=== PATIENT | male | born 1955 | race Two or more races ===

== ENCOUNTER → 2020-01-31 09:47 | Outpatient (BNVA) | payer BC, SELFPAY | PROVIDERS: PCP Internal Medicine Endocrinology, Diabetes & Metabolism; Referring Provider Internal Medicine Endocrinology, Diabetes & Metabolism; Visit Provider Urology | DX: Z76.89 Persons encountering health services in other specified circumstances (principal) ==

== ENCOUNTER → 2021-02-04 08:45 | Outpatient (BNVA) | payer MEDICARE, SELFPAY | PROVIDERS: PCP Internal Medicine Endocrinology, Diabetes & Metabolism; Visit Provider Urology | DX: N20.0 Calculus of kidney (principal); N28.1 Cyst of kidney, acquired; R82.994 Hypercalciuria | CPT/HCPCS: Q3014 ==

== ENCOUNTER → 2022-02-05 08:35 | Outpatient (BNVA) | payer MEDICARE, SELFPAY | PROVIDERS: PCP Internal Medicine; Visit Provider Urology | DX: N20.0 Calculus of kidney (principal); N28.1 Cyst of kidney, acquired | CPT/HCPCS: Q3014 ==

== ENCOUNTER 2023-01-12 08:36 | Outpatient (REF) | payer MEDICARE, SELFPAY ==
[2023-01-12] MEDS: iohexoL 350 MG/ML 100 ML INFUS..BTL IV (10:02)
[2023-01-19 11:03] LABS: Creatinine POC 0.6 mg/dL (0.5-1.4); GFR POC > 60
== END 2023-01-12 08:37 | disposition home or self-care (01) ==
LOC: HO.CT 08:36
PROVIDERS: PCP Internal Medicine; Visit Provider Urology
DX: N20.0 Calculus of kidney (principal)
CPT/HCPCS: 74178; 82565; Q9967

== ENCOUNTER 2023-02-04 10:49 | Outpatient (AMB) | payer MEDICARE, SELFPAY ==
--- NOTE | 2023-02-04 10:52 | MHC.OFFVIS ---
Intake Intake Visit Reasons: 1Y URO CT(Set) Intake Note: Patient is Present for Follow Up Urology Medication: Vitamin B6 Antibiotic Allergies: None Blood Thinners: None [facility] Allergies No Known Allergies Allergy (Verified 02/04/23 10:55) HPI HPI Comments History of Present Illness Details Narayan is a pleasant male. He is a patient of Dr. Chacko. He is seen for following urologic conditions - hypercalciuria - renal stones - renal cysts Had mild left-sided flank pain CT urogram performed - here is a 2 x 5 mm left distal ureteral stone. There is mild left distal ureteral dilatation. Plan intervention Nephrolithiasis/Urolithiasis:? Continue with renal stone medications indapamide and vitamin B6 Urine stream normal 12/29 PSA 0.5 ?They are here for further evaluation of nephrolithiasis. ?Urolithiasis was diagnosed 10/25 - Seen by PCP with right groin pain, nausea and vomiting. ?The patient previously had kidney stones whose composition w 10/25 , calcium oxalate - monohydrate 70%. ?Laboratory investigations include Base line serum evaluation. ?24 Hour urine evaluation 11/25 , Low Urine volume < 2.0 liters, Hypercalciuria (> 200mg), High oxalate > 30mg, Low citrate < 400 - low Na ? 05/29 , Good Volume > 2.00 L, Hypercalciuria (> 200mg), High Sodium (> 100mEq), High oxalate > 30mg ? 12/27 , Good Volume > 2.00 L, Low calcium < 200, High Citrate, Low urine, High uric acid - stay on indapamide. ?Prior treatment(s) include 10/25 , right, ureteroscopy ? 05/29 , medical management B6 and indapamide ? 11/26 continue medical therapy. ?Prior imaging includes a CT (computed tomography) scan of the abdomen/pelvis (stone protocol) 6 x 4 x 8 mm calculus obstructing right ureter 6 cm above UVJ. Dilated ureter and moderate hydronephrosis. 2 mm right mid renal calculus, 2 mm right lower pole calculus, 2.5 and 2 mm left lower pole calculus. 1 cm mid right simple cyst ? 11/25 , a KUB x-ray, showing no evidence of stones ? 05/29 , a KUB x-ray, showing no evidence of stones ? 12/27 , a KUB x-ray, showing no evidence of stones ? 11/27 , a renal ultrasound, showing no evidence of stones, left renal cyst complex 12/29? renal ultrasound, 5 mm stone question on right, 1.5 cm complex cyst on left continue to follow - 01/29 renal ultrasound. 6 mm stone on right, bilateral cysts including stable complex cyst on left - 01/30 renal ultrasound 5 mm stone on right, bilateral cysts, 2.0 cm complex cyst on left ?UA today shows specific gravity within normal range suggestive of adequate hydration today. ?Current therapeutic plan will be to continue with imaging surveillance?? PFSH Medical History Renal stones Hyperlipidemia Umbilical hernia Nocturia Weak urinary stream Hypercalciuria Hyperparathyroidism Surgical History History of surgery Social History Patient Tobacco Use Status: Former Tobacco user Review of Systems Const Denies chills and Denies fever(s) Card Reports no additional complaints and Denies syncope Resp Denies cough GI Denies abdominal pain and Denies heartburn Reports as per HPI and Denies change in libido Neuro Denies syncope Psych Denies change in libido Endo Denies change in libido Physical Exam Const General: cooperative, healthy appearing, comfortable and no acute distress Orientation/consciousness: patient oriented x3 HEENT Face and sinus: Yes normal facial exam Mouth: moist mucous membranes Neck Neck: Yes normal visual inspection, Yes full ROM and Yes trachea midline Chest Chest palpation & inspection: normal inspection of the chest Resp Effort & Inspection: normal respiratory effort, able to speak in complete sentences and no respiratory distress GI Inspection: Yes normal to inspection Back/Spine/Pelvis Cervical Spine: normal cervical lordosis Thoracic/Lumbar Spine: thoracic and lumbar spine normal to inspection Skin General skin exam: no rashes or lesions noted Neuro General: patient oriented x3, gait normal, tone normal and moves all extremities Extrem General: Yes normal to inspection and Yes capillary refill normal Assessment & Plan Assessment & Plan (1) Nephrolithiasis: Code(s): N20.0 - Calculus of kidney Plan Ureteroscopy We discussed the nature of the decision and reasonable alternatives for performing ureteroscopy. Options such as medical therapy were discussed. Interventions include chemical dissolution, ESWL, ureteroscopy with laser lithotripsy and stent placement, PCNL. The relative uncertainties and benefits related to each alternate procedure were adequately discussed. General surgical risks including, but not limited to - pain, bleeding, infection, myocardial infarction, pulmonary embolus, deep vein thrombosis and cerebrovascular accident which may result in further hospitalization were discussed. Full disclosure of the procedure as well as all major risks, benefits and complications were discussed including but not limited to damage to the urethra, bladder and kidney infection, damage to the ureter, stent migration or malposition, scarring to the renal pelvis, remnant stone fragments, subsequent stone passage with need for secondary procedures. The overall secondary procedure rate is approximately 10-15%. The overall clearance rate is approximately 90-95%. Success of the procedure in the short-term does not necessarily guarantee that long-term success will be maintained. Suitable follow up will need to be maintained. The patient showed understanding of discussion and wishes to proceed with - cystoscopy, retrograde, ureteroscopy, possible lithotripsy/stone basketing and stent on the left side Patient Instructions: Imaging studies, laboratory and physical exam results were discussed and reviewed in detail. No major barriers to patient understanding were identified. An opportunity to ask questions regarding the treatment plan was provided. All questions were answered. The patient expressed understanding and agreement with the above treatment plan. The patient is aware they should contact our office by phone for worsening of their current condition or the appearance of new urologic symptoms. Compliance is encouraged with any medications and followup testing that is ordered. It is a privilege to participate in the urologic care of your patient. If you have any questions or concerns regarding treatment for the above conditions, or other urologic issues, please do not hesitate to contact me. The office telephone contact is [phone]. This note is constructed using voice recognition software. While every effort has been made to ensure accuracy protective services case worker errors may have been included. Yours sincerely, Dr Jose G Rebollar MD, [facility] - Urology Providers of Expert, Compassionate Care for the Genitourinary System Coding Level of Care Code Est Pt Level 4 (40733) Diagnoses Nephrolithiasis N20.0
== END 2023-02-04 11:24 | disposition home or self-care (01) ==
PROVIDERS: Visit Provider Urology
DX: N20.0 Calculus of kidney (principal)
CPT/HCPCS: 99213

== ENCOUNTER → 2023-02-04 10:49 | Outpatient (BNVA) | payer MEDICARE, SELFPAY | PROVIDERS: Visit Provider Urology | DX: N28.1 Cyst of kidney, acquired (principal); N28.82 Megaloureter; R82.994 Hypercalciuria | CPT/HCPCS: 99212 ==

== ENCOUNTER 2023-03-07 10:02 | Day surgery (SDC) | payer MEDICARE, BC, SELFPAY ==
--- NOTE | 2023-03-01 14:37 | P.CONAN_ITS ---
Documented by User: Lolis Tomas NP 03/01/23 14:37 HPI - Anesthesia Eval Consult details Narrative: 67yo M for Left Cystoscopy, Ureteroroscopy, Retro, Laser,with poss stent [facility] Active Problems Active Problems: All Active Problems (Updated 02/04/21 @ 08:52 by HANNAH Garrison) Renal cyst, acquired, left (Acute) Idiopathic hypercalciuria (Acute) Nephrolithiasis (Acute) Past Medical History Medical History Renal stones Hyperlipidemia Umbilical hernia Nocturia Weak urinary stream Hypercalciuria Hyperparathyroidism Surgical History Surgical History History of surgery Social History Patient Tobacco Use Status: Former Tobacco user Advance Directives: No Advance Directives Information Provided: Yes Meds Allergies Allergy/AdvReac Type Severity Reaction Status Date / Time No Known Allergies Allergy Verified 02/04/23 10:55 Home Medications Medication Instructions Recorded Confirmed Last Taken Type amlodipine 5 mg tablet 5 mg PO DAILY 01/31/20 02/05/22 Unknown History jxfwkshfmcss-grpxsjrg-eoajha tablet 1 tab PO DAILY 01/31/20 02/05/22 Unknown History pregabalin 225 mg capsule (Lyrica) 225 mg PO BEDTIME 01/31/20 02/05/22 Unknown History simvastatin 20 mg tablet 20 mg PO DAILY 01/31/20 02/05/22 Unknown History azithromycin 250 mg tablet 250 mg PO DIRECTED 02/04/21 02/05/22 Unknown History Assessment and Plan Assessment Anesthesia Assessment: Chart Reviewed Documented by User: Baljinder Lockhart MD 03/07/23 10:20 PMFSH Past Medical History Medical History Renal stones Hyperlipidemia Umbilical hernia Nocturia Weak urinary stream Hypercalciuria Hyperparathyroidism Family History Family history of problems with anesthesia: No Surgical History Surgical History History of surgery History of Problems with Anesthesia: No Social History Patient Tobacco Use Status: Former Tobacco user Advance Directives: No Advance Directives Information Provided: Yes Meds Allergies Allergy/AdvReac Type Severity Reaction Status Date / Time No Known Allergies Allergy Verified 02/04/23 10:55 Home Medications Medication Instructions Recorded Confirmed Last Taken Type amlodipine 5 mg tablet 5 mg PO DAILY 01/31/20 02/05/22 Unknown History rigovxlfhmzy-agfsnkgg-imajtx tablet 1 tab PO DAILY 01/31/20 02/05/22 Unknown History pregabalin 225 mg capsule (Lyrica) 225 mg PO BEDTIME 01/31/20 02/05/22 Unknown History simvastatin 20 mg tablet 20 mg PO DAILY 01/31/20 02/05/22 Unknown History azithromycin 250 mg tablet 250 mg PO DIRECTED 02/04/21 02/05/22 Unknown History Exam Airway Mallampati Class: III TM Dist: >3cm Neck ROM: Limited Heart: rrr Lungs: cta Assessment and Plan Assessment Anesthesia Assessment: Anesthesia Plan Discussed Final Anesthetic Review Family History of Problems with Anesthesia: No History of Problems with Anesthesia: No NPO: Yes ASA Class: II Final Preanesthetic Review: No Changes in Pt Med Stat, Meds/Allgs Chart Reviewed, Consent Obtained/Reviewed and Anes Risks/Benef Reviewed Patient Risk: Low Anesthetic Plan Anesthetic Plan: GA and Agree w/ Assess. and Plan Disposition: Standard PACU
--- NOTE | ~2023-03-07 | FL_ITS ---
EXAMINATION: XR FLUOROSCOPY WITH IMAGES CLINICAL INFORMATION: Left stone. COMPARISON: CT urogram January 2023 TECHNIQUE: Fluoroscopy Supervised By: Dr. Jose G Rebollar. Fluoroscopy Time: 20.7 seconds. Cumulative Dose: 9.41 mGy. DAP: Not available on C-arm. Images: 3. FINDINGS: Initial image demonstrates contrast opacification of the left renal collecting system and wire in left collecting system and ureter. Final images demonstrate left internal ureteral stent in satisfactory position. FL/FL guidance in OR IMPRESSION: Fluoroscopy guidance for left retrograde exam and stent placement.
[2023-03-07 10:29] VITALS: BMI 30.7
--- NOTE | 2023-03-07 10:40 | MHC.SHP ---
Pre-Procedural Eval Section A Date of Service: 03/07/23 The patient is an INPATIENT: No Changes since office visit: No Cold of Flu in the past 2 weeks, No New Medical Problems, No Changes in Medication and No Patient answered all questions The History & Physical has been completed within 30 days and I have reviewed it.: Yes Section B Chief Complaint: Calculus of kidney Details of Present Illness: Left distal ureteric stone Relevant Social History: None Present Medications: see Short Stay Collaborative assessment Medical History: Significant History History of Previous Operations: Relevant previous surgery/procedure and date(s) Allergies: Allergies Allergy/AdvReac Type Severity Reaction Status Date / Time No Known Allergies Allergy Verified 03/07/23 10:24 Review of Systems Sugical H&P ROS: Negative: Constitution, Cardiovascular, Respiratory, Neurological, Psychiatric, Hem-Onc, Allergic/Immunologic, Gastrointestinal, Genitourinary, Musculoskeletal, Integumentary, Endocrine and Eyes/Ears/Nose/Throat Exam Surgical H&P Exam: Normal: HEENT, Normal: Heart, Normal: Lungs, Normal: Extremities, Normal: Abdomen, Normal: Skin and Normal: Neurological Plan Diagnosis/Plan: Unchanged (Cystoscopy, left retrograde, left ureteroscopy with laser lithotripsy stent placement) I have reviewed the history and physical and performed a pertinent physical examination on my patient. No changes have occurred unless specified. Time Spent With Patient Time: Total time managing care of this patient today ____ minutes.
[2023-03-07 10:45] VITALS: BP 115/89; PULSE 96; RESP 16; TEMP 36.9; O2SAT 96
[2023-03-07] MEDS: levoFLOXacin 500 MG TABLET PO (10:48)
[2023-03-07] MEDS: Lactated Ringers 1,000 ML 100 ML IVCONT (10:49)
--- NOTE | 2023-03-07 11:42 | W.PM.OPN ---
Operative Note Operative Note Date of Service: 03/07/23 Narrative: PreOperative Diagnosis: Distal left ureteric stone, left renal stone Post Operative Diagnosis: Same Procedure: - cystoscopy, left retrograde - left dilatation of ureteric orifice under fluoroscopy - left ureteroscopy, laser lithotripsy, stone basketing - both rigid and flexible - left stent placement Surgeon: Dr Jose G Rebollar Anesthesia: General Indications for procedure: Presents for recurrence of left pain. CT urogram shows 5 mm distal left ureteric stone with proximal hydroureter nephrosis, stone small seen within left renal pelvis Procedure: After informed consent was verified the patient was brought to the operating room and placed in a supine position. Anesthesia was administered per protocol. The patient was placed in a modified dorsal lithotomy position and prepped and draped in a sterile fashion. Safety pause time-out and side of surgery were confirmed. Images were available for review. Antibiotic administration confirmed. A 22 English cystoscope was inserted per urethra. The urethra was without abnormality. The bladder was normal in its entirety. Both ureteric orifices were seen in normal position . The left ureteric orifice was cannulated and a retrograde examination was performed. Distal filling defects seen . A Sensor guidewire was placed up to the level of the renal pelvis under fluoroscopy. The rigid cystoscope was removed. A ureteric access sheath was used as a dilator and placed over the Sensor guidewire and used to dilate the ureteric orifice under fluoroscopy. The dilator was removed. The semi rigid ureteral scope was placed alongside the Sensor guidewire. The distal ureteric stone was encountered.. Using a 275 micro holmium laser fiber the stone was broken into small pieces using a combination of hammer and dusting techiques. Stone fragments were removed from the ureter using a 1.9 English 0 tip basket. A decision was made to remove the semi rigid scope and placed a ureteric access sheath over the wire. The flexible ureteroscope was then placed up through renal pelvis. The renal pelvis and 7. Small stone was seen 7 code late and lower pole calyx. In the other lower pole calyx a 6 mm stone was found. Again using the 275 holmium laser fiber and dusting settings the stone was broken into small pieces. These were too small to basket. All calices of the left kidney were examined. Once the fragments were removed a decision was made to place a ureteric stent. Based on the height of the patient a 6 Fr x 24 stent was used. The string was removed from the stent prior to placement The rigid cystoscope was backloaded over the wire and advanced into the bladder. A 6 English by 24 cm double-J stent was placed into the renal pelvis and bladder under a combination of fluoroscopy and direct visualization. The bladder was emptied. The patient tolerated the procedure well and was extubated in the operating room. They were transferred in stable condition to the recovery area. Pathology: stones Drains: Double J stent as described above
[2023-03-07 11:49] VITALS: BP 127/70; PULSE 63; RESP 16; TEMP 36.3; O2SAT 94
[2023-03-07] MEDS: Phenazopyridine HCL 100 MG TABLET PO (11:55)
[2023-03-07 12:09] VITALS: BP 139/76; PULSE 52; RESP 18; TEMP 36.3; O2SAT 95
[2023-03-11 19:59] LABS: Stone Source KIDNEY STONE
== END 2023-03-07 12:40 | disposition home or self-care (01) ==
PROVIDERS: PCP Internal Medicine; Visit Provider Urology
PROC: (CPT 52356; principal; 2023-03-07 14:40)
DX: N13.2 Hydronephrosis with renal and ureteral calculous obstruction (principal); R35.1 Nocturia; R82.994 Hypercalciuria; R39.12 Poor urinary stream; E78.5 Hyperlipidemia, unspecified; E21.3 Hyperparathyroidism, unspecified; Z79.899 Other long term (current) drug therapy; Z98.890 Other specified postprocedural states
CPT/HCPCS: 52356; 82365; 88300; C1758; C1769; C2617; J0131; J1885; J2405; J2704; J3010; Q9967

== ENCOUNTER → 2023-03-07 10:02 | Outpatient (BNV) | payer MEDICARE, BC, SELFPAY | PROVIDERS: PCP Internal Medicine; Visit Provider Urology | DX: N20.2 Calculus of kidney with calculus of ureter (principal) | CPT/HCPCS: 52356; 74420 ==

== ENCOUNTER 2023-03-16 13:59 | Outpatient (AMB) | payer MEDICARE, SELFPAY ==
--- NOTE | 2023-03-16 14:08 | MHC.OFFVIS ---
Intake Intake Visit Reasons: S/P Cysto special/ Stent removal Intake Note: Patient is Present for Cystoscopy/Stent Removal Urology Med: Vitamin B6, Tamsulosin Antibiotic Allergy: None Blood Thinner: None URO- G Disposable Cystoscope lot: [id number] exp: 08/22/2024 Allergies No Known Allergies Allergy (Verified 03/16/23 15:09) Medication List - Last Reconciled 03/16/23 by ASIM Daniels- amlodipine 5 mg PO DAILY niyohwqfyqsi-woidmvjt-rauahh 1 tab PO DAILY naproxen 500 mg PO BID PRN 7 days phenazopyridine (Pyridium) 100 mg PO TID PRN 4 days pregabalin (Lyrica) 225 mg PO BEDTIME pyridoxine (vitamin B6) 100 mg PO DAILY 90 days simvastatin 20 mg PO DAILY tamsulosin 0.4 mg PO BEDTIME 14 days tramadol 50 mg PO Q6H PRN HPI HPI Comments History of Present Illness Details Narayan is a pleasant 67-year-old male patient of Dr. Chacko. He has a past medical history of nephrolithiasis, hyperlipidemia, umbilical hernia, hypercalciuria, and hyperparathyroidism. He presents to the office today for follow-up of his nephrolithiasis. Of note, patient has previously underwent cystoscopy, left retrograde, left dilatation of ureteric orifice under fluoroscopy, left ureteroscopy, laser lithotripsy, stone basketing - both rigid and flexible, and left stent placement on 03/07/[address] Rebollar for distal left uterine stone. He presents to the office today for a cystoscopy left-sided stent removal. Cystoscopy performed and left-sided stent was removed. Patient tolerated procedure well. He has a longstanding history of nephrolithiasis as noted above. He reports noting over the last week to be having urinary frequency and lower abdominal/bladder pressure. Discussed symptoms likely related to stent and now that stent is removed symptoms will likely improve however to call office if symptoms persist. He otherwise denies any bothersome urinary issues or concerns at this time. Discussed at length potential causes of nephrolithiasis and further metabolic workup. Discussed stone composition--80% calcium monohydrate. Previous notes noted below. Nephrolithiasis/Urolithiasis:? Continue with renal stone medications indapamide and vitamin B6 Urine stream normal 12/29 PSA 0.5 ?They are here for further evaluation of nephrolithiasis. ?Urolithiasis was diagnosed 10/25 - Seen by PCP with right groin pain, nausea and vomiting. ?The patient previously had kidney stones whose composition w 10/25 , calcium oxalate - monohydrate 70%. ?Laboratory investigations include Base line serum evaluation. ?24 Hour urine evaluation 11/25 , Low Urine volume < 2.0 liters, Hypercalciuria (> 200mg), High oxalate > 30mg, Low citrate < 400 - low Na ? 05/29 , Good Volume > 2.00 L, Hypercalciuria (> 200mg), High Sodium (> 100mEq), High oxalate > 30mg ? 12/27 , Good Volume > 2.00 L, Low calcium < 200, High Citrate, Low urine, High uric acid - stay on indapamide. ?Prior treatment(s) include 10/25 , right, ureteroscopy ? 05/29 , medical management B6 and indapamide ? 11/26 continue medical therapy. ?Prior imaging includes a CT (computed tomography) scan of the abdomen/pelvis (stone protocol) 6 x 4 x 8 mm calculus obstructing right ureter 6 cm above UVJ. Dilated ureter and moderate hydronephrosis. 2 mm right mid renal calculus, 2 mm right lower pole calculus, 2.5 and 2 mm left lower pole calculus. 1 cm mid right simple cyst ? 11/25 , a KUB x-ray, showing no evidence of stones ? 05/29 , a KUB x-ray, showing no evidence of stones ? 12/27 , a KUB x-ray, showing no evidence of stones ? 11/27 , a renal ultrasound, showing no evidence of stones, left renal cyst complex 12/29? renal ultrasound, 5 mm stone question on right, 1.5 cm complex cyst on left continue to follow - 01/29 renal ultrasound. 6 mm stone on right, bilateral cysts including stable complex cyst on left - 01/30 renal ultrasound 5 mm stone on right, bilateral cysts, 2.0 cm complex cyst on left ? ? ? FOR[facility]LY [facility], [facility] Medical History History of Mohs micrographic surgery for skin cancer Renal stones Hyperlipidemia Umbilical hernia Nocturia Weak urinary stream Hypercalciuria Hyperparathyroidism Surgical History History of surgery on right wrist History of carpal tunnel surgery of left wrist History of ankle surgery History of umbilical hernia repair History of surgery Social History Patient Tobacco Use Status: Former Tobacco user Quit Date: 1989 Review of Systems Const Reports no additional complaints Eyes Reports no additional complaints ENT Reports no additional complaints Card Reports as per HPI Resp Reports no additional complaints GI Reports no additional complaints Reports as per HPI Musc Reports no additional complaints Neuro Reports no additional complaints Psych Reports no additional complaints Endo Reports as per HPI Nitin/Lymph Reports no additional complaints Aller/Immun Reports no additional complaints Physical Exam Const General: cooperative, healthy appearing, comfortable, no acute distress, well developed, alert and awake Nutritional Appearance: overweight Orientation/consciousness: patient oriented x3 Limitations: no limitations HEENT Head: Yes normal to inspection, Yes normocephalic and Yes atraumatic Ears: hearing grossly normal bilaterally Eyes General: appearance normal, both eyes and all related structures Neck Neck: Yes normal visual inspection and Yes trachea midline Chest Chest palpation & inspection: normal inspection of the chest Resp Effort & Inspection: normal respiratory effort and able to speak in complete sentences Cardio Rate: regular rate GI Inspection: Yes normal to inspection General: Yes no CVA tenderness Penis: normal penis and circumcised Meatus: meatus normal Scrotum: scrotum normal Testes: Testes normal Back/Spine/Pelvis Back: no CVA tenderness Skin General skin exam: no rashes or lesions noted Neuro General: patient oriented x3 Extrem General: Yes normal to inspection Psych Appearance: grossly normal and well kempt Mental Status: mental status grossly normal Speech and movement: Normal speech and movement present and Clear speech present Affect: normal affect Attitude: cooperative Thought process: Normal thought process present Thought content: Normal thought content present Insight: Fair insight present (Psych) Judgement: Fair judgement present (Psych) Office Procedures Cystoscopy Consent Discussed risk and benefit or proposed procedure with the patient. Information consent for procedure given to the patient. Discussed technical aspects, risks, benefits and alternatives in full. Addressed all of the patient's questions and concerns regarding the procedure. The patient demonstrated knowledge and understanding. They wish to proceed with this procedure. Preparation The patient was prepped in the usual manner. A owner spa director was present and in the room. Genitalia was prepped with betadine solution in a sterile manner. Lidocaine Jelly 2% was placed into the urethra and 16Fr flexible Olympus cystoscope was inserted into the meatus after adequate lubrication. Procedure A well lubricated 16 [place] cystoscope was placed No abnormality noted of urethra during placement Indwelling stent seen within bladder emerging from left ureteric orifices The stent was grasped with a 3 prong grasper and removed without difficulty patient tolerated procedure well. [id number] with stent removal DISPOSABLE SCOPE URO-G FLEXIBLE SCOPE Procedure code (CPT) selection complete Office Meds lidocaine HCl 2 % mucosal jelly in applicator Performing Provider: Jose G Rebollar MD Performing Location: [facility] [place] [facility] Administered by: Laura Buckley RN on 03/16/23 14:17 Dose Route Admin Location Dispensed Lot Number Expiration Date [facility] Ground Intelligence Officer 10 mL intra-urethral 10 mL nitrofurantoin monohydrate/macrocrystals 100 mg capsule Performing Provider: Jose G Rebollar MD Performing Location: [facility] [place] [facility] Administered by: Laura Buckley RN on 03/16/23 14:17 Dose Route Admin Location Dispensed Lot Number Expiration Date [place] [employer] 100 mg PO 1 cap naproxen 500 mg tablet Performing Provider: Jose G Rebollar MD Performing Location: [facility] [place] [facility] Administered by: Laura Buckley RN on 03/16/23 14:17 Dose Route Admin Location Dispensed Lot Number Expiration Date [place] [employer] 500 mg PO 1 tab Results AMB Urinalysis, Automated UA Leukoctes 0 Rik/uL Last Edit by HANNAH Garrison on 03/16/23 14:29 UA Nitrite Negative Last Edit by HANNAH Garrison on 03/16/23 14:29 UA Urobilinogen 0.2 mg/dL Last Edit by HANNAH Garrison on 03/16/23 14:29 UA Protein 0 mg/dL Last Edit by HANNAH Garrison on 03/16/23 14:29 UA pH 6.0 Last Edit by HANNAH Garrison on 03/16/23 14:29 UA Blood 200 Calin/uL Last Edit by Patria Yeager A on 03/16/23 14:29 UA Specific [place] 1.005 Last Edit by Patria Yeager A on 03/16/23 14:29 UA Ketone Negative Last Edit by Patria Yeager, RMA on 03/16/23 14:29 UA Bilirubin 0 mg/dL Last Edit by Patria Yeager A on 03/16/23 14:29 UA Glucose 0 mg/dL Last Edit by Patria Yeager A on 03/16/23 14:29 Results Reviewed Results Reviewed: Laboratory Last Values Urine pH (Auto) 6.0 03/16/23 14:17 Specific [place] (Auto) 1.005 03/16/23 14:17 Urine Protein (Auto) 0 mg/dL 03/16/23 14:17 Glucose (UA)(Auto) 0 mg/dL 03/16/23 14:17 Urine Ketones (Auto) Negative 03/16/23 14:17 Urine Blood (Auto) 200 Calin/uL 03/16/23 14:17 Urine Nitrite (Auto) Negative 03/16/23 14:17 Urine Bilirubin (Auto) 0 mg/dL 03/16/23 14:17 Urine Urobilinogen (Auto) 0.2 mg/dL 03/16/23 14:17 Leukocyte Esterase (Auto) 0 Rik/uL 03/16/23 14:17 Assessment & Plan Assessment & Plan (1) Nephrolithiasis: Code(s): N20.0 - Calculus of kidney Plan In office urinalysis results reviewed with the patient today; as noted above. Cystoscopy with removal of left ureteral stent performed; as noted above. Discussed at length potential causes of nephrolithiasis. Discussed stone composition; 80% calcium monohydrate Discussed, educated, and enocuraged to drink plenty of water daily. Discussed further metabolic workup with 24 hour urine and labs Will obtain renal ultrasound in 3 months. Follow-up in 3 months with imaging to be completed prior; or sooner with any issues, concerns, or questions. Orders: Orders AMB Cystoscopy Today N20.0 - Calculus of kidney Jose G Rebollar MD AMB Urinalysis Automated Today Z13.9 - Encounter for screening, unspecified Jose G Rebollar MD US renal BI 3 Months N20.0 - Calculus of kidney DARLENE Daniels Patient Instructions: The patient had an opportunity to ask questions regarding the treatment plan. All questions were answered. Physical exam, labs, and imaging were discussed and reviewed in detail. As well as risks, benefits, and discussion of treatment choices. No major barriers to understanding were identified. The patient expressed understanding and agreement with the above treatment plan. The patient was made aware they should contact our office by phone for worsening of their current condition, the appearance of new symptoms, or with any questions or concerns. Compliance is encouraged with any medications and follow up testing that is ordered. It is a privilege to be allowed the opportunity to participate in? your urological care.? Again, if you have any questions or concerns If you have any questions or concerns please do not hesitate to contact me. The office is [phone]. This note is constructed using voice recognition software. While every effort has been made to ensure accuracy furniture cleaner errors may have been included. Yours sincerely, DARLENE Daniels Coding Level of Care Code Est Pt Level 3 (78460) Diagnoses Nephrolithiasis N20.0 CPT Codes Cystoscopy - CPT: 52300-[id number] with stent removal ([id number])
== END 2023-03-16 14:54 | disposition home or self-care (01) ==
PROVIDERS: PCP Internal Medicine; Visit Provider Urology
DX: N20.0 Calculus of kidney (principal)
CPT/HCPCS: 52310; 99213

== ENCOUNTER → 2023-03-16 13:59 | Outpatient (BNVA) | payer MEDICARE, SELFPAY | PROVIDERS: PCP Internal Medicine; Visit Provider Urology | DX: N20.0 Calculus of kidney (principal) | CPT/HCPCS: 52310; 81003; 99212 ==

== ENCOUNTER 2023-06-06 11:23 | Outpatient (REF) | payer MEDICARE, SELFPAY ==
--- NOTE | ~2023-06-06 | US_ITS ---
EXAMINATION: US RETROPERITONEAL LIMITED (RENAL ONLY) CLINICAL INFORMATION: Calculus of kidney. COMPARISON: CT urogram 01/12/2023. TECHNIQUE: Real-time imaging of the kidneys. Limited visualization due to bowel gas. FINDINGS: RIGHT KIDNEY: 10.8 x 5.2 x 4.9 cm (SAG x AP x TRV). 1.3 cm medial upper pole and 0.7 cm pole cysts. There is no indication for follow-up imaging. No hydronephrosis. No renal calculi. Renal cortical thickness is normal. Limited visualization. LEFT KIDNEY: 11.5 x 6.1 x 5.5 cm (SAG x AP x TRV). No hydronephrosis. 1.4 x 1.2 x 1.1 cm left lateral midpole echogenic focus may represent a single large calculus versus nonobstructive calculus. No hydronephrosis. 0.9 cm and 1.0 cm upper pole cysts. There is no indication for follow-up imaging. Renal cortical thickness is normal. Limited visualization. US/US renal BI IMPRESSION: 1.4 x 1.2 x 1.1 cm left lateral midpole echogenic focus may represent a single large calculus versus nonobstructive calculus. No hydronephrosis.
== END 2023-06-06 11:24 | disposition home or self-care (01) ==
LOC: HO.US 11:23
PROVIDERS: PCP Internal Medicine; Visit Provider Nurse Practitioner Family
DX: N20.0 Calculus of kidney (principal)
CPT/HCPCS: 76775

== ENCOUNTER 2023-06-17 09:38 | Outpatient (REF) | payer MEDICARE, SELFPAY ==
--- NOTE | ~2023-06-17 | XR_ITS ---
EXAMINATION: XR ABDOMEN KUB CLINICAL INDICATION: Calculus of kidney. COMPARISON: Renal ultrasound of 06/06/2023, CT urogram of 01/12/2023, fluoroscopy 03/07/2023. TECHNIQUE: 2 AP views of the abdomen. FINDINGS: Moderate amount of stool in the colon. Nonobstructive bowel gas pattern. Degenerative changes in the imaged thoracolumbar spine and bilateral hips. Redemonstration of bony exostosis protruding from the inferolateral aspect of the right iliac wing, just above the acetabulum. Tiny calcifications overlie the bilateral renal shadows, although evaluation is limited due to overlying bowel. Patchy opacities at the bilateral lung bases, incompletely imaged; should be evaluated with dedicated views of the chest. XR/XR KUB IMPRESSION: 1. Tiny calcifications overlie the bilateral renal shadows, although evaluation is limited due to overlying bowel. 2. Patchy opacities at the bilateral lung bases, incompletely imaged; should be evaluated with dedicated views of the chest.
== END 2023-06-17 09:39 | disposition home or self-care (01) ==
LOC: HO.XRAY 09:38
PROVIDERS: PCP Internal Medicine; Visit Provider Nurse Practitioner Family
DX: N20.0 Calculus of kidney (principal); Z79.899 Other long term (current) drug therapy
CPT/HCPCS: 74018; 81003; 99212

== ENCOUNTER 2023-06-17 09:38 | Outpatient (AMB) | payer MEDICARE, SELFPAY ==
--- NOTE | 2023-06-17 09:47 | MHC.OFFVIS ---
Intake Intake Visit Reasons: 3m/US(set) Intake Note: Patient is Present for follow up nephrolithiasis Urology Medications: Vitamin B6, Tamsulosin Antibiotic Allergy: None Blood Thinner: None Trucker Required: No Accompanied by: Self / Same As Patient Allergies No Known Allergies Allergy (Verified 06/17/23 18:05) Medication List - Last Reconciled 06/17/23 by MAGALIE DanielsP- amlodipine 5 mg PO DAILY [id number]-[id number] 1 tab PO DAILY naproxen 500 mg PO BID PRN 7 days phenazopyridine (Pyridium) 100 mg PO TID PRN 4 days pregabalin (Lyrica) 225 mg PO BEDTIME pyridoxine (vitamin B6) 100 mg PO DAILY 90 days simvastatin 20 mg PO DAILY tamsulosin 0.4 mg PO BEDTIME 14 days tramadol 50 mg PO Q6H PRN HPI HPI Comments History of Present Illness Details Narayan is a pleasant 67-year-old male patient of Dr. Chacko who is accompanied by his at todays office visit. He has a past medical history of nephrolithiasis, hyperlipidemia, umbilical hernia, hypercalciuria, and hyperparathyroidism. He presents to the office today for follow-up of his nephrolithiasis. Of note, patient has previously underwent cystoscopy, left retrograde, left dilatation of ureteric orifice under fluoroscopy, left ureteroscopy, laser lithotripsy, stone basketing - both rigid and flexible, and left stent placement on 03/07/[address] Rebollar for distal left uterine stone. In office cystoscopy with left ureteral stent removal was performed 04/02. Recent renal imaging results reviewed with the patient and his today. 1.3 cm mid to upper pole and 0.4 cm pole right renal cysts. There is no indication for follow-up per radiology report. No hydronephrosis. Left kidney with 1.4 cm left lateral mid pole echogenic focus may represent a single large calculus verses nonobstructive calculus. No hydronephrosis. 0.9 and 1 point cm upper pole renal cysts for which no indication follow-up is recommended per radiology report. In discussion with the patient today reports to be doing and feeling well. He denies any bothersome urinary issues or concerns. He reports compliance with vitamin B6 as prescribed. He denies urinary urgency, urinary frequency, incontinence, nocturia, hematuria, dysuria, foul smelling urine, changes to urinary stream, flank pain, fever, and or chills. He is happy with his current voiding parameters. He otherwise denies any bothersome urinary issues or concerns at this time. Discussed at length potential causes of nephrolithiasis and further metabolic workup. Discussed stone composition--80% calcium monohydrate. Previous notes noted below. Nephrolithiasis/Urolithiasis:? Continue with renal stone medications indapamide and vitamin B6 Urine stream normal 12/29 PSA 0.5 ?They are here for further evaluation of nephrolithiasis. ?Urolithiasis was diagnosed 10/25 - Seen by PCP with right groin pain, nausea and vomiting. ?The patient previously had kidney stones whose composition w 10/25 , calcium oxalate - monohydrate 70%. ?Laboratory investigations include Base line serum evaluation. ?24 Hour urine evaluation 11/25 , Low Urine volume < 2.0 liters, Hypercalciuria (> 200mg), High oxalate > 30mg, Low citrate < 400 - low Na ? 05/29 , Good Volume > 2.00 L, Hypercalciuria (> 200mg), High Sodium (> 100mEq), High oxalate > 30mg ? 12/27 , Good Volume > 2.00 L, Low calcium < 200, High Citrate, Low urine, High uric acid - stay on indapamide. ?Prior treatment(s) include 10/25 , right, ureteroscopy ? 05/29 , medical management B6 and indapamide ? 11/26 continue medical therapy. ?Prior imaging includes a CT (computed tomography) scan of the abdomen/pelvis (stone protocol) 6 x 4 x 8 mm calculus obstructing right ureter 6 cm above UVJ. Dilated ureter and moderate hydronephrosis. 2 mm right mid renal calculus, 2 mm right lower pole calculus, 2.5 and 2 mm left lower pole calculus. 1 cm mid right simple cyst ? 11/25 , a KUB x-ray, showing no evidence of stones ? 05/29 , a KUB x-ray, showing no evidence of stones ? 12/27 , a KUB x-ray, showing no evidence of stones ? 11/27 , a renal ultrasound, showing no evidence of stones, left renal cyst complex 12/29? renal ultrasound, 5 mm stone question on right, 1.5 cm complex cyst on left continue to follow - 01/29 renal ultrasound. 6 mm stone on right, bilateral cysts including stable complex cyst on left - 01/30 renal ultrasound 5 mm stone on right, bilateral cysts, 2.0 cm complex cyst on left. [facility] Medical History History of Mohs micrographic surgery for skin cancer Renal stones Hyperlipidemia Umbilical hernia Nocturia Weak urinary stream Hypercalciuria Hyperparathyroidism Surgical History History of surgery on right wrist History of carpal tunnel surgery of left wrist History of ankle surgery History of umbilical hernia repair History of surgery Social History Patient Tobacco Use Status: Former Tobacco user Quit Date: 1989 Review of Systems Const Reports no additional complaints Eyes Reports no additional complaints ENT Reports no additional complaints Card Reports as per HPI Resp Reports no additional complaints GI Reports no additional complaints Reports as per HPI Musc Reports no additional complaints Neuro Reports no additional complaints Psych Reports no additional complaints Endo Reports as per HPI Nitin/Lymph Reports no additional complaints Aller/Immun Reports no additional complaints Physical Exam Const General: cooperative, healthy appearing, comfortable, no acute distress, well developed, alert and awake Nutritional Appearance: overweight Orientation/consciousness: patient oriented x3 Limitations: no limitations HEENT Head: Yes normal to inspection, Yes normocephalic and Yes atraumatic Ears: hearing grossly normal bilaterally Eyes General: appearance normal, both eyes and all related structures Neck Neck: Yes normal visual inspection and Yes trachea midline Chest Chest palpation & inspection: normal inspection of the chest Resp Effort & Inspection: normal respiratory effort and able to speak in complete sentences Cardio Rate: regular rate GI Inspection: Yes normal to inspection General: Yes no CVA tenderness Penis: normal penis and circumcised Meatus: meatus normal Scrotum: scrotum normal Testes: Testes normal Back/Spine/Pelvis Back: no CVA tenderness Skin General skin exam: no rashes or lesions noted Neuro General: patient oriented x3 Extrem General: Yes normal to inspection Psych Appearance: grossly normal and well kempt Mental Status: mental status grossly normal Speech and movement: Normal speech and movement present and Clear speech present Affect: normal affect Attitude: cooperative Thought process: Normal thought process present Thought content: Normal thought content present Insight: Fair insight present (Psych) Judgement: Fair judgement present (Psych) Results AMB Urinalysis, Automated UA Leukoctes 15 Rik/uL Last Edit by [employer] Sharif on 06/17/23 10:10 UA Nitrite Negative Last Edit by [employer]ter [employer]u on 06/17/23 10:10 UA Urobilinogen 0.2 mg/dL Last Edit by [employer] on 06/17/23 10:10 UA Protein 0 mg/dL Last Edit by [employer] on 06/17/23 10:10 UA pH 6.0 Last Edit by [employer]lester [employer] on 06/17/23 10:10 UA Blood 0 Calin/uL Last Edit by [employer] on 06/17/23 10:10 UA Specific [place] 1.020 Last Edit by [employer] on 06/17/23 10:10 UA Ketone Negative Last Edit by [employer] on 06/17/23 10:10 UA Bilirubin 0 mg/dL Last Edit by [employer] on 06/17/23 10:10 UA Glucose 0 mg/dL Last Edit by Obihai [employer]lester [employer] on 06/17/23 10:10 Results Reviewed Results Reviewed: Laboratory Last Values Urine pH (Auto) 6.0 06/17/23 09:53 Specific [place] (Auto) 1.020 06/17/23 09:53 Urine Protein (Auto) 0 mg/dL 06/17/23 09:53 Glucose (UA)(Auto) 0 mg/dL 06/17/23 09:53 Urine Ketones (Auto) Negative 06/17/23 09:53 Urine Blood (Auto) 0 Calin/uL 06/17/23 09:53 Urine Nitrite (Auto) Negative 06/17/23 09:53 Urine Bilirubin (Auto) 0 mg/dL 06/17/23 09:53 Urine Urobilinogen (Auto) 0.2 mg/dL 06/17/23 09:53 Leukocyte Esterase (Auto) 15 Rik/uL 06/17/23 09:53 Date of Service: 06/06/23 EXAMINATION: US RETROPERITONEAL LIMITED (RENAL ONLY) FINDINGS: RIGHT KIDNEY: 10.8 x 5.2 x 4.9 cm (SAG x AP x TRV). 1.3 cm medial upper pole and 0.7 cm pole cysts. There is no indication for follow-up imaging. No hydronephrosis. No renal calculi. Renal cortical thickness is normal. Limited visualization. LEFT KIDNEY: 11.5 x 6.1 x 5.5 cm (SAG x AP x TRV). No hydronephrosis. 1.4 x 1.2 x 1.1 cm left lateral midpole echogenic focus may represent a single large calculus versus nonobstructive calculus. No hydronephrosis. 0.9 cm and 1.0 cm upper pole cysts. There is no indication for follow-up imaging. Renal cortical thickness is normal. Limited visualization. IMPRESSION: 1.4 x 1.2 x 1.1 cm left lateral midpole echogenic focus may represent a single large calculus versus nonobstructive calculus. No hydronephrosis. Assessment & Plan Assessment & Plan (1) Nephrolithiasis: Code(s): N20.0 - Calculus of kidney Plan In office urinalysis results reviewed with the patient today; as noted above. Recent renal ultrasound results reviewed with the patient today; as noted above Discussed at length potential causes of nephrolithiasis. Will obtain KUB for further assessment evaluation. Discussed, educated, and enocuraged to drink plenty of water daily. Continue vitamin B6 as discussed Discussed further metabolic workup with 24 hour urine and labs Follow-up in 1 month with imaging to be completed prior; or sooner with any issues, concerns, or questions. Orders: Orders AMB Urinalysis Automated Today Z13.9 - Encounter for screening, unspecified XR KUB Today N20.0 - Calculus of kidney Medications: Discontinued phenazopyridine (Pyridium) Discontinued Reason: Patient Completed Course 100 mg PO TID 4 days PRN 12 tabs 0RF Spasm tamsulosin Discontinued Reason: Patient Completed Course 0.4 mg PO BEDTIME 14 days 14 caps 0RF naproxen Discontinued Reason: Patient Completed Course 500 mg PO BID 7 days PRN 14 tabs 0RF pain tramadol Discontinued Reason: Patient Completed Course 50 mg PO Q6H PRN 8 tabs 0RF pain (scale score 1-3) Patient Instructions: The patient had an opportunity to ask questions regarding the treatment plan. All questions were answered. Physical exam, labs, and imaging were discussed and reviewed in detail. As well as risks, benefits, and discussion of treatment choices. No major barriers to understanding were identified. The patient expressed understanding and agreement with the above treatment plan. The patient was made aware they should contact our office by phone for worsening of their current condition, the appearance of new symptoms, or with any questions or concerns. Compliance is encouraged with any medications and follow up testing that is ordered. It is a privilege to be allowed the opportunity to participate in? your urological care.? Again, if you have any questions or concerns If you have any questions or concerns please do not hesitate to contact me. The office is [phone]. This note is constructed using voice recognition software. While every effort has been made to ensure accuracy sound editor errors may have been included. Yours sincerely, DARLENE Daniels Coding Level of Care Code Est Pt Level 3 (58431) Diagnoses Nephrolithiasis N20.0
== END 2023-06-17 10:29 | disposition home or self-care (01) ==
PROVIDERS: PCP Internal Medicine; Visit Provider Nurse Practitioner Family
DX: N20.0 Calculus of kidney (principal); Z13.9 Encounter for screening, unspecified
CPT/HCPCS: 99213

== ENCOUNTER 2023-07-21 13:00 | Outpatient (AMB) | payer MEDICARE, SELFPAY ==
--- NOTE | 2023-07-21 13:01 | A.OFFVIS_ITS ---
Intake Intake Visit Reasons: 1m/KUB(set) Intake Note: Patient presents today for a follow up on: KUB Meds- vITAMIN B6 Allergies to Antibiotic- No Known Allergies Blood Thinner- None Footwear Machinery Instructor Required: No Allergies No Known Allergies Allergy (Verified 07/21/23 13:52) Medication List - Last Reconciled 07/21/23 by ASIM Daniels- amlodipine 5 mg PO DAILY [id number] 1 tab PO DAILY pregabalin (Lyrica) 225 mg PO BEDTIME pyridoxine (vitamin B6) 100 mg PO DAILY 90 days simvastatin 20 mg PO DAILY HPI HPI Comments History of Present Illness Details Narayan is a pleasant 67-year-old male patient of Dr. Chacko who is accompanied by his at [facility] video telehealth visit. He has a past medical history of nephrolithiasis, hyperlipidemia, umbilical hernia, hypercalciuria, and hyperparathyroidism. He is being followed up on today via video telehealth for his history of nephrolithiasis. Of note, patient was seen approximately 1 month ago here at the office at which time a XR-KUB was ordered for further assessment evaluation as most recent renal ultrasound noting 1.4 cm left lateral mid pole stone. Recent KUB results reviewed with the patient his today. Tiny calcifications overlie the bilateral renal shadows, although evaluation is limited due to overlying bowel. In discussion with the patient today he continues to report no urinary issues or concerns. He previously underwent cystoscopy, left retrograde, left dilatation of ureteric orifice under fluoroscopy, left ureteroscopy, laser lithotripsy, stone basketing - both rigid and flexible, and left stent placement on 03/07/[address] Rebollar for distal left uterine stone. In office cystoscopy with left ureteral stent removal was performed 04/02. In discussion with the patient today reports to be doing and feeling well. He denies any bothersome urinary issues or concerns. He reports compliance with vitamin B6 as prescribed. He denies urinary urgency, urinary frequency, incontinence, nocturia, hematuria, dysuria, foul smelling urine, changes to urinary stream, flank pain, fever, and or chills. He is happy with his current voiding parameters. Discussed at length potential causes of nephrolithiasis and further metabolic workup in the near future. Discussed stone composition--80% calcium monohydrate. Previous notes noted below. Nephrolithiasis/Urolithiasis:? Continue with renal stone medications indapamide and vitamin B6 Urine stream normal 12/29 PSA 0.5 ?They are here for further evaluation of nephrolithiasis. ?Urolithiasis was diagnosed 10/25 - Seen by PCP with right groin pain, nausea and vomiting. ?The patient previously had kidney stones whose composition w 10/25 , calcium oxalate - monohydrate 70%. ?Laboratory investigations include Base line serum evaluation. ?24 Hour urine evaluation 11/25 , Low Urine volume < 2.0 liters, Hypercalc iuria (> 200mg), High oxalate > 30mg, Low citrate < 400 - low Na ? 05/29 , Good Volume > 2.00 L, Hypercalciuria (> 200mg), High Sodium (> 100mEq), High oxalate > 30mg ? 12/27 , Good Volume > 2.00 L, Low calcium < 200, High Citrate, Low urine, High uric acid - stay on indapamide. ?Prior treatment(s) include 10/25 , right, ureteroscopy ? 05/29 , medical management B6 and indapamide ? 11/26 continue medical therapy. ?Prior imaging includes a CT (computed tomography) scan of the abdomen/pelvis (stone protocol) 6 x 4 x 8 mm calculus obstructing right ureter 6 cm above UVJ. Dilated ureter and moderate hydronephrosis. 2 mm right mid renal calculus, 2 mm right lower pole calculus, 2.5 and 2 mm left lower pole calculus. 1 cm mid right simple cyst ? 11/25 , a KUB x-ray, showing no evidence of stones ? 05/29 , a KUB x-ray, showing no evidence of stones ? 12/27 , a KUB x-ray, showing no evidence of stones ? 11/27 , a renal ultrasound, showing no evidence of stones, left renal cyst complex 12/29? renal ultrasound, 5 mm stone question on right, 1.5 cm complex cyst on left continue to follow - 01/29 renal ultrasound. 6 mm stone on right, bilateral cysts including stable complex cyst on left - 01/30 renal ultrasound 5 mm stone on right, bilateral cysts, 2.0 cm complex cyst on left. [facility] Medical History History of Mohs micrographic surgery for skin cancer Renal stones Hyperlipidemia Umbilical hernia Nocturia Weak urinary stream Hypercalciuria Hyperparathyroidism Surgical History History of surgery on right wrist History of carpal tunnel surgery of left wrist History of ankle surgery History of umbilical hernia repair History of surgery Social History Patient Tobacco Use Status: Former Tobacco user Quit Date: 1989 Review of Systems Const Reports no additional complaints Eyes Reports no additional complaints ENT Reports no additional complaints Card Reports as per HPI Resp Reports no additional complaints GI Reports no additional complaints Reports as per HPI Musc Reports no additional complaints Neuro Reports no additional complaints Psych Reports no additional complaints Endo Reports as per HPI Nitin/Lymph Reports no additional complaints Aller/Immun Reports no additional complaints Physical Exam Const General: cooperative, healthy appearing, comfortable, no acute distress, well developed, alert and awake Orientation/consciousness: patient oriented x3 Resp Effort & Inspection: normal respiratory effort and able to speak in complete sentences Neuro General: patient oriented x3 Psych Appearance: grossly normal and well kempt Mental Status: mental status grossly normal Speech and movement: Normal speech and movement present and Clear speech present Affect: normal affect Attitude: cooperative Thought process: Normal thought process present Thought content: Normal thought content present Insight: Fair insight present (Psych) Judgement: Fair judgement present (Psych) Results Reviewed Results Reviewed: Date of Service: 06/17/23 EXAMINATION: XR ABDOMEN KUB FINDINGS: Moderate amount of stool in the colon. Nonobstructive bowel gas pattern. Degenerative changes in the imaged thoracolumbar spine and bilateral hips. Redemonstration of bony exostosis protruding from the inferolateral aspect of the right iliac wing, just above the acetabulum. Tiny calcifications overlie the bilateral renal shadows, although evaluation is limited due to overlying bowel. Patchy opacities at the bilateral lung bases, incompletely imaged; should be evaluated with dedicated views of the chest. IMPRESSION: 1. Tiny calcifications overlie the bilateral renal shadows, although evaluation is limited due to overlying bowel. 2. Patchy opacities at the bilateral lung bases, incompletely imaged; should be evaluated with dedicated views of the chest. Assessment & Plan Assessment & Plan (1) Nephrolithiasis: Code(s): N20.0 - Calculus of kidney Plan Recent KUB results reviewed with the patient today; as noted above Discussed at length potential causes of nephrolithiasis. Will obtain CT KUB for further assessment evaluation. Discussed, educated, and encouraged to drink plenty of water daily. Continue vitamin B6 as discussed and prescribed Discussed further metabolic workup with 24 hour urine and labs in the near future. Follow-up in 1-2 month with imaging to be completed prior; or sooner with any issues, concerns, or questions. Orders: Orders CT kidney stone Today N20.0 - Calculus of kidney Patient Instructions: The patient had an opportunity to ask questions regarding the treatment plan. All questions were answered. Physical exam, labs, and imaging were discussed and reviewed in detail. As well as risks, benefits, and discussion of treatment choices. No major barriers to understanding were identified. The patient expressed understanding and agreement with the above treatment plan. The patient was made aware they should contact our office by phone for worsening of their current condition, the appearance of new symptoms, or with any questions or concerns. Compliance is encouraged with any medications and follow up testing that is ordered. It is a privilege to be allowed the opportunity to participate in? your urological care.? Again, if you have any questions or c oncerns If you have any questions or concerns please do not hesitate to contact me. The office is [phone]. This note is constructed using voice recognition software. While every effort has been made to ensure accuracy corporate statistical financial analyst errors may have been included. Yours sincerely, ASIM Daniels- Telehealth Telehealth Location of provider rendering services: practice address Location of patient: address on file Patient Identification confirmed using: Name, : Yes Telehealth method: video Patient verbally consented to treatment: Yes Patient verbally consented to billing insurance company: Yes Patient informed of any privacy concerns related to visit: Yes Minutes spent on Phone/Video with Pt.: 20 Coding Level of Care Code Tele Est Pt Level 3 (96249) Diagnoses Nephrolithiasis N20.0
== END 2023-07-21 14:09 | disposition home or self-care (01) ==
LOC: HO.HUSH 13:00
PROVIDERS: PCP Internal Medicine; Visit Provider Nurse Practitioner Family
DX: N20.0 Calculus of kidney (principal)
CPT/HCPCS: 99213

== ENCOUNTER → 2023-07-21 13:00 | Outpatient (BNVA) | payer MEDICARE, SELFPAY | PROVIDERS: PCP Internal Medicine; Visit Provider Nurse Practitioner Family ==

== ENCOUNTER 2023-09-01 07:19 | Outpatient (REF) | payer MEDICARE, SELFPAY ==
--- NOTE | ~2023-09-01 | CT_ITS ---
EXAMINATION: CT KIDNEY STONE CLINICAL INFORMATION: Calculus of kidney COMPARISON: 06/06/23 renal ultrasound, 01/12/2023 CT urogram TECHNIQUE: Continuous helical imaging obtained of the abdomen and pelvis without IV contrast. Reconstructed images performed in coronal and sagittal planes. This CT examination was performed using dose optimization techniques as appropriate, variously including the following: *Automated exposure control *Adjustment of mA and/or kV according to patient size (this includes techniques or standardized protocols for targeted exams where dose is matched to indication/reason for exam; i.e. extremities or head) *Use of iterative reconstruction technique DLP: 438 mGycm FINDINGS: DIRECTOR OF DISTRIBUTION: Nonobstructive bowel pattern. ABDOMEN AND PELVIS: Lung bases: Nonenlarged heart. No pericardial effusion. Moderate coronary calcifications. Hyperinflated appearing, but clear lungs. Hepatobiliary: Unchanged too small to characterize right hepatic hypodensities, statistically cysts. No intra or extrahepatic biliary ductal dilatation. Unremarkable appearing gallbladder. Spleen, pancreas and adrenal glands are unremarkable in appearance. Kidneys, ureters and bladder: Bilateral nonobstructing renal calculi, largest measuring 4 mm in right lower pole. Tiny left lower pole cortical calcifications, all too small for accurate Hounsfield unit characterization. Bilateral renal hypodensities better characterized on 01/12/2023 contrast-enhanced study, likely cysts. No hydroureteronephrosis or perinephric stranding. Urinary bladder is under distended but unremarkable in appearance. Gastrointestinal: Decompressed stomach. Nonobstructive bowel pattern. Unremarkable terminal ileum and appendix. Diverticulosis without diverticulitis. Vascular: Atherosclerotic calcifications nonaneurysmal aorta. Normal caliber inferior vena cava and iliac veins. Lymph nodes: Unchanged subcentimeter perigastric lymph node, 3:12. No pathologic lymphadenopathy. Abdominal wall: Bilateral small fat filled inguinal hernias. Pelvic organs: Prominent prostate with calcifications. Bones and soft tissues: Degenerative changes. No suspicious osseous lesions. CT/CT kidney stone IMPRESSION: Nonobstructing bilateral renal calculi, largest in the right lower pole measuring 4 mm. No hydroureteronephrosis. Unchanged likely left renal and hepatic cysts. Diverticulosis without diverticulitis.
== END 2023-09-01 07:20 | disposition home or self-care (01) ==
LOC: HO.CT 07:19
PROVIDERS: PCP Internal Medicine; Visit Provider Nurse Practitioner Family
DX: N20.0 Calculus of kidney (principal)
CPT/HCPCS: 74176

== ENCOUNTER 2023-09-20 08:43 | Outpatient (AMB) | payer MEDICARE, SELFPAY ==
--- NOTE | 2023-09-20 08:53 | A.OFFVIS_ITS ---
Intake Visit Reasons: 2m follow up/ CT KUB(set) Intake Note: Patient presents today for a follow up on: CT Scan Results Imaging Completed: 09/01/23 Urology Medications: Vitamin B6 Allergies to Antibiotics: No Known Allergies Blood Thinner: None Metal Coater Required: No Accompanied by: Unknown Allergies No Known Allergies Allergy (Verified 09/20/23 09:23) Medication List - Last Reconciled 09/20/23 by ASIM Daniels-HENNY amlodipine 5 mg PO DAILY [id number] 1 tab PO DAILY pregabalin (Lyrica) 225 mg PO BEDTIME pyridoxine (vitamin B6) 100 mg PO DAILY 90 days simvastatin 20 mg PO DAILY HPI Comments Details: Narayan is a pleasant 67-year-old male patient of Dr. Chacko who is accompanied by his at today's office visit. He has a past medical history of nephrolithiasis, hyperlipidemia, umbilical hernia, hypercalciuria, and hyperparathyroidism. He presents to the office today for follow-up of his nephrolithiasis. Of note, patient was seen approximately 1 month ago at which time a CT KUB was ordered for further assessment evaluation given previous imaging (renal u/s) noting 1.4 cm left lateral mid pole stone. CT KUB notes bilateral nonobstructing renal calculi, largest measuring 4mm in right lower pole. Tiny left lower pole cortical calcifications. Bilateral renal hypodensities better characterized on 01/12/2023 contrast-enhanced study, likely cysts. No hydroureteronephrosis or perinephric stranding. Urinary bladder is under distended but unremarkable in appearance. In discussion with the patient today he continues to report no urinary issues or concerns. He previously underwent cystoscopy, left retrograde, left dilatation of ureteric orifice under fluoroscopy, left ureteroscopy, laser lithotripsy, stone basketing - both rigid and flexible, and left stent placement on 03/07/[address] Rebollar for distal left uterine stone. In office cystoscopy with left ureteral stent removal was performed 04/02. In discussion with the patient today reports to be doing and feeling well. He denies any bothersome urinary issues or concerns. He reports compliance with vitamin B6 as prescribed. He denies urinary urgency, urinary frequency, incontinence, nocturia, hematuria, dysuria, foul smelling urine, changes to urinary stream, flank pain, fever, and or chills. He is happy with his current voiding parameters. Discussed at length potential causes of nephrolithiasis and further metabolic workup in the near future. Discussed stone composition--80% calcium monohydrate. Previous notes noted below. Nephrolithiasis/Urolithiasis:? Continue with renal stone medications indapamide and vitamin B6 Urine stream normal 12/29 PSA 0.5 ?They are here for further evaluation of nephrolithiasis. ?Urolithiasis was diagnosed 10/25 - Seen by PCP with right groin pain, nausea and vomiting. ?The patient previously had kidney stones whose composition w 10/25 , calcium oxalate - monohydrate 70%. ?Laboratory investigations include Base line serum evaluation. ?24 Hour urine evaluation 11/25 , Low Urine volume < 2.0 liters, Hypercalciuria (> 200mg), High oxalate > 30mg, Low citrate < 400 - low Na ? 05/29 , Good Volume > 2.00 L, Hypercalciuria (> 200mg), High Sodium (> 100mEq), High oxalate > 30mg ? 12/27 , Good Volume > 2.00 L, Low calcium < 200, High Citrate, Low urine, High uric acid - stay on indapamide. ?Prior treatment(s) include 10/25 , right, ureteroscopy ? 05/29 , medical management B6 and indapamide ? 11/26 continue medical therapy. ?Prior imaging includes a CT (computed tomography) scan of the abdomen/pelvis (stone protocol) 6 x 4 x 8 mm calculus obstructing right ureter 6 cm above UVJ. Dilated ureter and moderate hydronephrosis. 2 mm right mid renal calculus, 2 mm right lower pole calculus, 2.5 and 2 mm left lower pole calculus. 1 cm mid right simple cyst ? 11/25 , a KUB x-ray, showing no evidence of stones ? 05/29 , a KUB x-ray, showing no evidence of stones ? 12/27 , a KUB x-ray, showing no evidence of stones ? 11/27 , a renal ultrasound, showing no evidence of stones, left renal cyst complex 12/29? renal ultrasound, 5 mm stone question on right, 1.5 cm complex cyst on left continue to follow - 01/29 renal ultrasound. 6 mm stone on right, bilateral cysts including stable complex cyst on left - 01/30 renal ultrasound 5 mm stone on right, bilateral cysts, 2.0 cm complex cyst on left. [facility], [facility] Medical History History of Mohs micrographic surgery for skin cancer Renal stones Hyperlipidemia Umbilical hernia Nocturia Weak urinary stream Hypercalciuria Hyperparathyroidism Surgical History History of surgery on right wrist History of carpal tunnel surgery of left wrist History of ankle surgery History of umbilical hernia repair History of surgery Social History Patient Tobacco Use Status: Former Tobacco user Review of Systems Const Reports no additional complaints Eyes Reports no additional complaints ENT Reports no additional complaints Card Reports as per HPI Resp Reports no additional complaints GI Reports no additional complaints Reports as per HPI Musc Reports no additional complaints Neuro Reports no additional complaints Psych Reports no additional complaints Endo Reports as per HPI Nitin/Lymph Reports no additional complaints Aller/Immun Reports no additional complaints Physical Exam Const General: cooperative, healthy appearing, comfortable, no acute distress, well developed, alert and awake Nutritional Appearance: overweight Orientation/consciousness: patient oriented x3 Limitations: no limitations HEENT Head: Yes normal to inspection, Yes normocephalic and Yes atraumatic Ears: hearing grossly normal bilaterally Eyes General: appearance normal, both eyes and all related structures Neck Neck: Yes normal visual inspection and Yes trachea midline Chest Chest palpation & inspection: normal inspection of the chest Resp Effort & Inspection: normal respiratory effort and able to speak in complete sentences Cardio Rate: regular rate GI Inspection: Yes normal to inspection General: Yes no CVA tenderness Penis: normal penis and circumcised Meatus: meatus normal Scrotum: scrotum normal Testes: Testes normal Back/Spine/Pelvis Back: no CVA tenderness Skin General skin exam: no rashes or lesions noted Neuro General: patient oriented x3 Extrem General: Yes normal to inspection Psych Appearance: grossly normal and well kempt Mental Status: mental status grossly normal Speech and movement: Normal speech and movement present and Clear speech present Affect: normal affect Attitude: cooperative Thought process: Normal thought process present Thought content: Normal thought content present Insight: Fair insight present (Psych) Judgement: Fair judgement present (Psych) Results AMB Urinalysis, Automated UA Leukoctes 0 Rik/uL Last Edit by Gamida Cell on 09/20/23 09:05 UA Nitrite Negative Last Edit by Gamida Cell on 09/20/23 09:05 UA Urobilinogen 0.2 mg/dL Last Edit by Gamida Cell on 09/20/23 09:05 UA Protein 0 mg/dL Last Edit by Gamida Cell on 09/20/23 09:05 UA pH 6.0 Last Edit by Gamida Cell on 09/20/23 09:05 UA Blood 0 Calin/uL Last Edit by Gamida Cell on 09/20/23 09:05 UA Specific [place] 1.025 Last Edit by Gamida Cell on 09/20/23 09:05 UA Ketone Negative Last Edit by Gamida Cell on 09/20/23 09:05 UA Bilirubin 0 mg/dL Last Edit by Gamida Cell on 09/20/23 09:05 UA Glucose 0 mg/dL Last Edit by Gamida Cell on 09/20/23 09:05 Results Reviewed Results Reviewed: Laboratory Last Values Urine pH (Auto) 6.0 09/20/23 09:03 Specific [place] (Auto) 1.025 09/20/23 09:03 Urine Protein (Auto) 0 mg/dL 09/20/23 09:03 Glucose (UA)(Auto) 0 mg/dL 09/20/23 09:03 Urine Ketones (Auto) Negative 09/20/23 09:03 Urine Blood (Auto) 0 Calin/uL 09/20/23 09:03 Urine Nitrite (Auto) Negative 09/20/23 09:03 Urine Bilirubin (Auto) 0 mg/dL 09/20/23 09:03 Urine Urobilinogen (Auto) 0.2 mg/dL 09/20/23 09:03 Leukocyte Esterase (Auto) 0 Rik/uL 09/20/23 09:03 Date of Service: 09/01/23 EXAMINATION: CT KIDNEY STONE FINDINGS: OPERATOR AUTOMATED PROCESS: Nonobstructive bowel pattern. ABDOMEN AND PELVIS: Lung bases: Nonenlarged heart. No pericardial effusion. Moderate coronary calcifications. Hyperinflated appearing, but clear lungs. Hepatobiliary: Unchanged too small to characterize right hepatic hypodensities, statistically cysts. No intra or extrahepatic biliary ductal dilatation. Unremarkable appearing gallbladder. Spleen, pancreas and adrenal glands are unremarkable in appearance. Kidneys, ureters and bladder: Bilateral nonobstructing renal calculi, largest measuring 4 mm in right lower pole. Tiny left lower pole cortical calcifications, all too small for accurate Hounsfield unit characterization. Bilateral renal hypodensities better characterized on 01/12/2023 contrast-enhanced study, likely cysts. No hydroureteronephrosis or perinephric stranding. Urinary bladder is under distended but unremarkable in appearance. Gastrointestinal: Decompressed stomach. Nonobstructive bowel pattern. Unremarkable terminal ileum and appendix. Diverticulosis without diverticulitis. Vascular: Atherosclerotic calcifications nonaneurysmal aorta. Normal caliber inferior vena cava and iliac veins. Lymph nodes: Unchanged subcentimeter perigastric lymph node, 3:12. No pathologic lymphadenopathy. Abdominal wall: Bilateral small fat filled inguinal hernias. Pelvic organs: Prominent prostate with calcifications. Bones and soft tissues: Degenerative changes. No suspicious osseous lesions. IMPRESSION: Nonobstructing bilateral renal calculi, largest in the right lower pole measuring 4 mm. No hydroureteronephrosis. Unchanged likely left renal and hepatic cysts. Diverticulosis without diverticulitis. Assessment & Plan Assessment & Plan (1) Nephrolithiasis: Code(s): N20.0 - Calculus of kidney Category: Medical (2) Renal cyst: Code(s): N28.1 - Cyst of kidney, acquired Category: Medical Plan In office urinalysis results reviewed with the patient today; as noted above. Recent CT results reviewed with the patient and his today; as noted above. Discussed at length potential causes of nephrolithiasis Discussed, educated, and stressed the importance of adequate hydration in relation to nephrolithiasis as well as overall health and well-being. Patient currently denies any bothersome urinary issues or concerns. He reports be happy with current voiding parameters. Discussed further metabolic workup with 24 hour urine collection and labs; patient declines at this time. Will obtain renal ultrasound and PSA in 6 months for surveillance monitoring Continue vitamin B6 as discussed and prescribed. Continue adding 1 oz of lemon juice to water daily. Follow-up in 6 months with imaging to be completed prior; or sooner with any issues, concerns, and or questions. Orders: Orders US renal BI 6 Months N20.0 - Calculus of kidney AMB Urinalysis Automated Today Z13.9 - Encounter for screening, unspecified Prostate Specific Antigen Today N40.0 - Benign prostatic hyperplasia without lower urinary tract symptoms Patient Instructions: The patient had an opportunity to ask questions regarding the treatment plan. All questions were answered. Physical exam, labs, and imaging were discussed and reviewed in detail. As well as risks, benefits, and discussion of treatment choices. No major barriers to understanding were identified. The patient expressed understanding and agreement with the above treatment plan. The patient was made aware they should contact our office by phone for worsening of their current condition, the appearance of new symptoms, or with any questions or concerns. Compliance is encouraged with any medications and follow up testing that is ordered. It is a privilege to be allowed the opportunity to participate in? your urological care.? Again, if you have any questions or concerns If you have any questions or concerns please do not hesitate to contact me. The office is [phone]. This note is constructed using voice recognition software. While every effort has been made to ensure accuracy fly maker errors may have been included. Yours sincerely, DARLENE Daniels Coding Level of Care Code Est Pt Level 3 (53937) Diagnoses Nephrolithiasis N20.0 Renal cyst N28.1
== END 2023-09-20 09:22 | disposition home or self-care (01) ==
PROVIDERS: PCP Internal Medicine; Visit Provider Nurse Practitioner Family
DX: N20.0 Calculus of kidney (principal); N28.1 Cyst of kidney, acquired; Z13.9 Encounter for screening, unspecified
CPT/HCPCS: 99213

== ENCOUNTER → 2023-09-20 08:43 | Outpatient (BNVA) | payer MEDICARE, SELFPAY | PROVIDERS: PCP Internal Medicine; Visit Provider Nurse Practitioner Family | DX: N20.0 Calculus of kidney (principal); N28.1 Cyst of kidney, acquired; R82.994 Hypercalciuria | CPT/HCPCS: 81003; 99212 ==

== ENCOUNTER 2023-12-06 12:53 | Outpatient (REF) | payer MEDICARE, SELFPAY ==
--- NOTE | ~2023-12-06 | US_ITS ---
EXAMINATION: US RETROPERITONEAL COMPLETE (RENAL) CLINICAL INFORMATION: Calculus of kidney. COMPARISON: Prior images are not accessible at this time for direct comparison. Comparison made only with reports for CT Stone 09/01/2023, KUB 06/17/2023, renal ultrasound 06/06/2023, and CT urogram 01/12/2023. TECHNIQUE: Real-time imaging of the kidneys and bladder. Limited visualization due to bowel gas. FINDINGS: RIGHT KIDNEY: 11.2 x 5.6 x 5.8 cm (SAG x AP x TRV). No hydronephrosis. Limited visualization. 1.6 cm cyst with benign features. There is no specific indication for additional imaging at this time. 0.8 cm lower pole cyst. 7 mm mid pole and 3 mm lower pole nonobstructing calculi. LEFT KIDNEY: 11.9 x 5.7 x 4.1 cm (SAG x AP x TRV). Multiple benign-appearing renal cysts, largest 1.3 cm upper pole and 1.3 cm lower pole. No hydronephrosis. At least 4 nonobstructing renal calculi measuring 6 mm in the lower pole, 5 mm lower pole, 4 mm midpole, and 2 mm upper pole. 3.6 x 2.1 x 2.4 cm complex mixed cystic and solid mass with echogenic foci characteristic of calcification in the left renal midpole is difficult to fully characterize due to limited visualization. US/US renal BI IMPRESSION: 1. Bilateral nonobstructing renal calculi. No hydronephrosis. 2. Left renal 3.6 cm complex lesion with calcification is difficult to characterize due to limited visualization. Prior images are not accessible for direct comparison at this time and if they are later provided, an addendum will be dictated. Dedicated CT scan employing renal mass protocol with images obtained both prior to and following intravenous contrast recommended. Electronically signed by: Reva Sam MD 12/14/2023 10:31 AM EDT
== END 2023-12-06 12:54 | disposition home or self-care (01) ==
LOC: HO.US 12:53
PROVIDERS: Visit Provider Nurse Practitioner Family
DX: N20.0 Calculus of kidney (principal)
CPT/HCPCS: 76775

== ENCOUNTER 2024-03-16 07:26 | Outpatient (REF) | payer MEDICARE, SELFPAY ==
[2024-03-16 09:06] LABS: Prostate Specific Antigen 0.36 ng/mL (<0.05-4.0)
== END 2024-03-16 07:27 | disposition home or self-care (01) ==
LOC: HO.LAB 07:26
PROVIDERS: PCP Internal Medicine; Visit Provider Nurse Practitioner Family
DX: N40.0 Benign prostatic hyperplasia without lower urinary tract symptoms (principal); Z12.5 Encounter for screening for malignant neoplasm of prostate
CPT/HCPCS: 36415; 84153

== ENCOUNTER 2024-03-20 08:25 | Outpatient (AMB) | payer MEDICARE, SELFPAY ==
--- NOTE | 2024-03-20 08:33 | A.OFFVIS_ITS ---
Intake Visit Reasons: 6m/US(set) Intake Note: Patient presents today for a follow up on: kidney stone, ultrasound and psa lab results Imaging Completed: 12/06/23 PSA: 0.36 Urology Medications: Vitamin B6 Allergies to Antibiotics: No Known Allergies Blood Thinner: None Nuclear Medical Tech Required: No Accompanied by: Unknown Allergies No Known Allergies Allergy (Verified 03/20/24 08:41) HPI Comments Details: Narayan is a pleasant 68-year-old male patient of Dr. Chacko who is accompanied by his at today's office visit. He has a past medical history of nephrolithiasis, hyperlipidemia, umbilical hernia, hypercalciuria, and hyperparathyroidism. He presents to the office today for follow-up of his nephrolithiasis. Recent renal imaging results reviewed with the patient today. Right kidney with no hydronephrosis, 1.6 cm cyst with benign features that requires no additional follow-up per radiology report. 7 mm and 3 mm lower pole nonobstructing calculi. Left kidney with benign-appearing renal cysts largest measuring 1.3 cm that requires no follow-up imaging per radiology report. No hydronephrosis. There are at least 4 nonobstructing renal calculi the largest measuring 6 mm. There is a 3.6 cm complex mixed cystic and solid mass with echogenic foci. Dedicated CT scan employing renal mass protocol with images obtained both prior to and following intravenous contrast recommended per radiology report. In discussion with the patient today he continues to report no urinary issues or concerns. He previously underwent cystoscopy, left retrograde, left dilatation of ureteric orifice under fluoroscopy, left ureteroscopy, laser lithotripsy, stone basketing - both rigid and flexible, and left stent placement on 03/07/[address] Rebollar for distal left uterine stone. In office cystoscopy with left ureteral stent removal was performed 04/02. In discussion with the patient today reports to be doing and feeling well. He discusses his recent shoulder surgery with [facility] and has been recovering well. He denies any bothersome urinary issues or concerns. He reports compliance with vitamin B6 as prescribed and drinking plenty of water daily. He denies urinary urgency, urinary frequency, incontinence, nocturia, hematuria, dysuria, foul smelling urine, changes to urinary stream, flank pain, fever, and or chills. He is happy with his current voiding parameters. Discussed at length potential causes of nephrolithiasis and further metabolic workup in the near future. Discussed stone composition--80% calcium monohydrate. Recent PSA results reviewed with the patient today 04/03 0.4. Previous notes noted below. Nephrolithiasis/Urolithiasis:? Continue with renal stone medications indapamide and vitamin B6 Urine stream normal 12/29 PSA 0.5 ?They are here for further evaluation of nephrolithiasis. ?Urolithiasis was diagnosed 10/25 - Seen by PCP with right groin pain, nausea and vomiting. ?The patient previously had kidney stones whose composition w 10/25 , calcium oxalate - monohydrate 70%. ?Laboratory investigations include Base line serum evaluation. ?24 Hour urine evaluation 11/25 , Low Urine volume < 2.0 liters, Hypercalciuria (> 200mg), High oxalate > 30mg, Low citrate < 400 - low Na ? 05/29 , Good Volume > 2.00 L, Hypercalciuria (> 200mg), High Sodium (> 100mEq), High oxalate > 30mg ? 12/27 , Good Volume > 2.00 L, Low calcium < 200, High Citrate, Low urine, High uric acid - stay on indapamide. ?Prior treatment(s) include 10/25 , right, ureteroscopy ? 05/29 , medical management B6 and indapamide ? 11/26 continue medical therapy. ?Prior imaging includes a CT (computed tomography) scan of the abdomen/pelvis (stone protocol) 6 x 4 x 8 mm calculus obstructing right ureter 6 cm above UVJ. Dilated ureter and moderate hydronephrosis. 2 mm right mid renal calculus, 2 mm right lower pole calculus, 2.5 and 2 mm left lower pole calculus. 1 cm mid right simple cyst ? 11/25 , a KUB x-ray, showing no evidence of stones ? 05/29 , a KUB x-ray, showing no evidence of stones ? 12/27 , a KUB x-ray, showing no evidence of stones ? 11/27 , a renal ultrasound, showing no evidence of stones, left renal cyst complex 12/29? renal ultrasound, 5 mm stone question on right, 1.5 cm complex cyst on left continue to follow - 01/29 renal ultrasound. 6 mm stone on right, bilateral cysts including stable complex cyst on left - 01/30 renal ultrasound 5 mm stone on right, bilateral cysts, 2.0 cm complex cyst on left. [facility] Medical History History of Mohs micrographic surgery for skin cancer Renal stones Hyperlipidemia Umbilical hernia Nocturia Weak urinary stream Hypercalciuria Hyperparathyroidism Surgical History History of surgery on right wrist History of carpal tunnel surgery of left wrist History of ankle surgery History of umbilical hernia repair History of surgery Social History Patient Tobacco Use Status: Former Tobacco user Review of Systems Const Reports no additional complaints Eyes Reports no additional complaints ENT Reports no additional complaints Card Reports as per HPI Resp Reports no additional complaints GI Reports no additional complaints Reports as per HPI Musc Reports no additional complaints Neuro Reports no additional complaints Psych Reports no additional complaints Endo Reports as per HPI Nitin/Lymph Reports no additional complaints Aller/Immun Reports no additional complaints Physical Exam Const General: cooperative, healthy appearing, comfortable, no acute distress, well developed, alert and awake Nutritional Appearance: overweight Orientation/consciousness: patient oriented x3 Limitations: no limitations HEENT Head: Yes normal to inspection, Yes normocephalic and Yes atraumatic Ears: hearing grossly normal bilaterally Eyes General: appearance normal, both eyes and all related structures Neck Neck: Yes normal visual inspection and Yes trachea midline Chest Chest palpation & inspection: normal inspection of the chest Resp Effort & Inspection: normal respiratory effort and able to speak in complete sentences Cardio Rate: regular rate GI Inspection: Yes normal to inspection General: Yes no CVA tenderness Penis: normal penis and circumcised Meatus: meatus normal Scrotum: scrotum normal Testes: Testes normal Back/Spine/Pelvis Back: no CVA tenderness Skin General skin exam: no rashes or lesions noted Neuro General: patient oriented x3 Extrem General: Yes normal to inspection Psych Appearance: grossly normal and well kempt Mental Status: mental status grossly normal Speech and movement: Normal speech and movement present and Clear speech present Affect: normal affect Attitude: cooperative Thought process: Normal thought process present Thought content: Normal thought content present Insight: Fair insight present (Psych) Judgement: Fair judgement present (Psych) Results AMB Urinalysis, Automated UA Leukoctes 0 Rik/uL Last Edit by [employer] on 03/20/24 08:44 UA Nitrite Last Edit by [employer] on 03/20/24 08:44 UA Urobilinogen 0.2 mg/dL Last Edit by [employer] on 03/20/24 08:44 UA Protein 0 mg/dL Last Edit by [employer] on 03/20/24 08:44 UA pH 6.0 Last Edit by [employer] on 03/20/24 08:44 UA Blood 0 Calin/uL Last Edit by [employer] on 03/20/24 08:44 UA Specific [place] 1.030 Last Edit by [employer] on 03/20/24 08:44 UA Ketone Last Edit by [employer] on 03/20/24 08:44 UA Bilirubin 0 mg/dL Last Edit by [employer] on 03/20/24 08:44 UA Glucose 0 mg/dL Last Edit by [employer] on 03/20/24 08:44 Results Reviewed Results Reviewed: Laboratory Last Values Urine pH (Auto) 6.0 03/20/24 08:42 Specific [place] (Auto) 1.030 03/20/24 08:42 Urine Protein (Auto) 0 mg/dL 03/20/24 08:42 Glucose (UA)(Auto) 0 mg/dL 03/20/24 08:42 Urine Blood (Auto) 0 Calin/uL 03/20/24 08:42 Urine Bilirubin (Auto) 0 mg/dL 03/20/24 08:42 Urine Urobilinogen (Auto) 0.2 mg/dL 03/20/24 08:42 Leukocyte Esterase (Auto) 0 Rik/uL 03/20/24 08:42 Date of Service: 12/06/23 EXAMINATION: US RETROPERITONEAL COMPLETE (RENAL) FINDINGS: RIGHT KIDNEY: 11.2 x 5.6 x 5.8 cm (SAG x AP x TRV). No hydronephrosis. Limited visualization. 1.6 cm cyst with benign features. There is no specific indication for additional imaging at this time. 0.8 cm lower pole cyst. 7 mm mid pole and 3 mm lower pole nonobstructing calculi. LEFT KIDNEY: 11.9 x 5.7 x 4.1 cm (SAG x AP x TRV). Multiple benign-appearing renal cysts, largest 1.3 cm upper pole and 1.3 cm lower pole. No hydronephrosis. At least 4 nonobstructing renal calculi measuring 6 mm in the lower pole, 5 mm lower pole, 4 mm midpole, and 2 mm upper pole. 3.6 x 2.1 x 2.4 cm complex mixed cystic and solid mass with echogenic foci characteristic of calcification in the left renal midpole is difficult to fully characterize due to limited visualization. IMPRESSION: 1. Bilateral nonobstructing renal calculi. No hydronephrosis. 2. Left renal 3.6 cm complex lesion with calcification is difficult to characterize due to limited visualization. Prior images are not accessible for direct comparison at this time and if they are later provided, an addendum will be dictated. Dedicated CT scan employing renal mass protocol with images obtained both prior to and following intravenous contrast recommended. Assessment & Plan Assessment & Plan (1) Nephrolithiasis: Code(s): N20.0 - Calculus of kidney Category: Medical (2) Renal cyst: Code(s): N28.1 - Cyst of kidney, acquired Category: Medical Plan In office urinalysis results reviewed with the patient today; as noted above. Recent renal imaging results reviewed with the patient and his today; as noted above. Recent PSA results reviewed with the patient today; as noted above. Discussed at length potential causes of nephrolithiasis Discussed, educated, and stressed the importance of adequate hydration in relation to nephrolithiasis as well as overall health and well-being. Patient currently denies any bothersome urinary issues or concerns. He reports be happy with current voiding parameters. Discussed further metabolic workup with 24 hour urine collection and labs; patient declines at this time. Discussed further workup of complex renal cyst Continue vitamin B6 as discussed and prescribed. Continue adding 1 oz of lemon juice to water daily. Will obtain CT renal mass protocol. Follow-up in 1-2 months with imaging to be completed prior; or sooner with any issues, concerns, and or questions. Orders: Orders CT abdomen pelvis wo/w IV con Today N28.1 - Cyst of kidney, acquired AMB Urinalysis Automated Today Z13.9 - Encounter for screening, unspecified Patient Instructions: The patient had an opportunity to ask questions regarding the treatment plan. All questions were answered. Physical exam, labs, and imaging were discussed and reviewed in detail. As well as risks, benefits, and discussion of treatment choices. No major barriers to understanding were identified. The patient expressed understanding and agreement with the above treatment plan. The patient was made aware they should contact our office by phone for worsening of their current condition, the appearance of new symptoms, or with any questions or concerns. Compliance is encouraged with any medications and follow up testing that is ordered. It is a privilege to be allowed the opportunity to participate in? your urological care.? Again, if you have any questions or concerns If you have any questions or concerns please do not hesitate to contact me. The office is [phone]. This note is constructed using voice recognition software. While every effort has been made to ensure accuracy solar business developer errors may have been included. Yours sincerely, DARLENE Daniels Coding Level of Care Code Est Pt Level 3 (32167) Complex EM visit Add On G2211 Diagnoses Nephrolithiasis N20.0 Renal cyst N28.1
== END 2024-03-20 09:04 | disposition home or self-care (01) ==
PROVIDERS: PCP Internal Medicine; Visit Provider Nurse Practitioner Family
DX: N20.0 Calculus of kidney (principal); N28.1 Cyst of kidney, acquired; Z13.9 Encounter for screening, unspecified
CPT/HCPCS: 99213; G2211

== ENCOUNTER → 2024-03-20 08:25 | Outpatient (BNVA) | payer MEDICARE, SELFPAY | PROVIDERS: PCP Internal Medicine; Visit Provider Nurse Practitioner Family | DX: N20.0 Calculus of kidney (principal); N28.1 Cyst of kidney, acquired | CPT/HCPCS: 81003; 99212 ==

== ENCOUNTER 2024-06-05 07:21 | Outpatient (REF) | payer MEDICARE, SELFPAY ==
--- OUTSIDE RECORDS SUMMARY | 2024-06-05 07:25 | XMS_ITS | Continuity of Care Document ---
Author Organization [facility], GARRETT Sarmiento PT Address [address] [place] [address] Care Team Providers Care Stain Sprayer Name Role Phone FABY DURHAM Referring Provider FABY DURHAM Primary Care Provider Assessment Encounter Date Assessment Date Assessment LastModified by Organization Details LastModified Time 05/18/2024 05/18/2024 Assessment: Good overall ROM with improving mechanics. Making steady gains increasing strength. good james to wall stabilization exercises. Plan: Continue PT @ 1x/wk to decrease pain, increase ROM, optimize mechanics, and improve participation in functional activities. finish out appts then D/c to I HEP. [email or web address] Not available 05/18/2024 11:34:36 Plan of Treatment Reminders Order Date Submit Date Provider Last Modified By Organization Details Last Modified Time Details Appointments RECHECK 15 2024 08:30A M Chon Nielsen PA-C Not available Not available Not available Lab None recorded . Referral None recorded . Procedures None recorded . Surgeries None recorded . Imaging None recorded . Medication Orders None recorded . Patient TargetsNo targets recorded. Patient InstructionsNo instructions recorded. Reason for Referral None Reported. Procedures Surgical History Date Name Laterality Status Provider Name and Address Organization Details Recorded Time 4 21976 Therapeutic Exercise (1:1) completed Casa Granado, PT [address], [place], [address], [facility] 03/26/2024 16:11:52 4 91671 Therapeutic Exercise (1:1) completed Lakisha Villarreal, APPLICATION SPECIALIST [address], [place], [address], [facility] 03/22/2024 14:19:44 4 17087: Manual therapy completed Lakisha Villarreal APPLICATION SPECIALIST [address], [place], [address], [facility] 03/22/2024 14:19:44 4 60790 Therapeutic Exercise (1:1) completed Casa Granado, PT [address], [place], [address], [facility] 03/16/2024 12:41:20 4 39303: Manual therapy completed Casa Granado, PT [address], [place], [address], [facility] 03/16/2024 12:41:20 4 97030 Therapeutic Exercise (1:1) completed Casa Granado, PT [address], [place], [address], [facility] 03/15/2024 06:31:03 4 90650: Manual therapy completed Casa Granado, PT [address], [place], [address], [facility] 03/15/2024 06:31:03 4 66549 Therapeutic Exercise (1:1) completed Casa Granado, PT [address], [place], [address], [facility] 03/12/2024 18:20:54 4 30386: Manual therapy completed Casa Granado, PT [address], [place], [address], [facility] 03/13/2024 15:27:52 4 48286 Therapeutic Exercise (1:1) completed Lakisha Villarreal, APPLICATION SPECIALIST [address], [place], [address], [facility] 03/05/2024 06:41:29 4 30352: Manual therapy completed Lakisha Villarreal, APPLICATION SPECIALIST [address], [place], [address], [facility] 03/05/2024 12:30:39 4 90292 Therapeutic Exercise (1:1) completed Casa Granado, PT [address], [place], [address], [facility] 03/01/2024 15:14:27 4 22699: Manual therapy completed Casa Granado, PT [address], [place], [address], [facility] 03/01/2024 15:14:27 4 94387 Therapeutic Exercise (1:1) completed Casa Granado PT [address], [place], [address], [facility] 02/27/2024 10:55:20 4 90668: Manual therapy completed Casa Granado PT [address], [place], [address], [facility] 02/27/2024 10:55:20 4 10299 Therapeutic Exercise (1:1) completed Casa Granado PT [address], [place], [address], [facility] 02/24/2024 10:04:16 4 65932: Manual therapy completed Casa Granado PT [address], [place], [address], [facility] 02/23/2024 14:42:13 4 26837 Therapeutic Exercise (1:1) completed Lakisha Villarreal PTA [address], [place], [address], [facility] 02/17/2024 14:52:00 4 84160: Manual therapy completed Lakisha Villarreal PTA [address], [place], [address], [facility] 02/17/2024 14:52:00 4 59520 Therapeutic Exercise (1:1) completed Lakisha Villarreal APPLICATION SPECIALIST [address], [place], [address], [facility] 02/16/2024 15:29:45 4 66178: Manual therapy completed Lakisha Villarreal APPLICATION SPECIALIST [address], [place], [address], [facility] 02/16/2024 15:29:46 4 51609 Therapeutic Exercise (1:1) completed Lakisha Villarreal APPLICATION SPECIALIST [address], [place], [address], [facility] 02/15/2024 08:24:38 4 20712: Manual therapy completed Lakisha Villarreal APPLICATION SPECIALIST [address], [place], [address], [facility] 02/15/2024 08:24:45 4 84557 Therapeutic Exercise (1:1) completed Casa Granado, PT [address], [place], [address], [facility] 02/08/2024 11:17:58 4 47223: Low complexity PT Eval completed Casa Granado, PT [address], [place], [address], [facility] 02/08/2024 11:18:01 4 G8417 BMI Above Upper Parameters, F/U Documented completed Casa Granado, PT [address], [place], [address], [facility] 02/09/2024 07:15:11 4 G8427 Current Medication Documented completed Casa Granado, PT [address], [place], [address], [facility] 02/09/2024 07:15:05 4 JZShoulder INJ completed Casa Finnegan PA-C [address], [place], [address], [facility] [place] [facility] 09/19/2023 13:58:06 Imaging Results None recorded. Procedure Notes None recorded. Medical Equipment None Reported. Allergies No known drug allergies Medications Name Sig Start Date Stop Date Status Note LastModified by Organization Details LastModified Time amoxicillin 500 mg capsule TAKE 1 CAPSULE BY MOUTH THREE TIMES DAILY active Not Available Not Available No t Available atorvastati n 20 mg tablet TAKE 1 TABLET BY MOUTH DAILY active Not Available Not Available No t Available aspirin 325 mg tablet Take 1 tablet every day by oral route for 14 days. 02/14 completed Not Available Not Available Not Available meloxicam 15 mg tablet TAKE 1 TABLET BY MOUTH EVERY DAY AFTER A MEAL 12/25 completed Not Available Not Available Not Available amlodipine 5 mg tablet TAKE 1 TABLET BY MOUTH DAILY active Not Available Not Available No t Available tramadol 50 mg tablet TAKE 1 TABLET BY MOUTH EVERY 6 HOURS NEEDED FOR PAIN SCALE 1-3 11/21 completed Not Available Not Available Not Available acetaminoph en 500 mg tablet TAKE 2 TABLETS BY MOUTH THREE TIMES DAILY 02/14 completed Not Available Not Available Not Available aspirin 325 mg tablet,marie yed release TAKE 1 TABLET BY MOUTH EVERY DAY FOR 14 DAYS 02/14 completed Not Available Not Available Not Available tamsulosin 0.4 mg capsule TAKE 1 CAPSULE BY MOUTH AT BEDTIME FOR 14 DAYS 11/21 completed Not Available Not Available Not Available phenazopyri dine 100 mg tablet TAKE 1 TABLET BY MOUTH THREE TIMES DAILY NEEDED FOR SPASM 11/21 completed Not Available Not Available Not Available simvastatin 20 mg tablet TAKE 1 TABLET BY MOUTH AT BEDTIME 02/14 completed Not Available Not Available Not Available docusate sodium 100 mg capsule TAKE 1 CAPSULE BY MOUTH EVERY DAY NEEDED 02/14 completed Not Available Not Available Not Available ibuprofen 600 mg tablet TAKE 1 TABLET BY MOUTH EVERY 4 TO 6 HOURS NEEDED active Not Available Not Available No t Available albuterol sulfate HFA 90 mcg/actuati on aerosol inhaler INHALE 2 PUFFS INTO THE LUNGS EVERY 4 HOURS NEEDED FOR COUGH OR WHEEZING 02/14 completed Not Available Not Available Not Available naproxen 500 mg tablet TAKE 1 TABLET BY MOUTH TWICE DAILY FOR 7 DAYS NEEDED FOR PAIN 11/21 completed Not Available Not Available Not Available oxycodone 5 mg tablet TAKE 1 TABLET BY MOUTH EVERY 6 HOURS 02/14 completed Not Available Not Available Not Available Lyrica 225 mg capsule TAKE ONE CAPSULE BY MOUTH TWICE DAILY active Not Available Not Available No t Available chlorhexidi ne gluconate 0.12 % mouthwash SWISH AND SPIT 15 ML BY MOUTH IN THE MORNING AND IN THE EVENING FOR 2 WEEKS active Not Available Not Available No t Available Vitals None Recorded Social History None recorded. Functional Status None recorded. Mental Status None recorded. Family History Nothing Reported. Medical History Condition Response Allergies/Hayfever N Coronary Artery Disease N Anxiety/Depression N Breathing or lung disorders N Emphysema N Nerve Disorders Y Thyroid Problems N COPD N Pacemaker N Anemia N Kidney/Bladder Problems N Vascular Disease N Heart Trouble N Heart Attack (SD) N Gastrointestinal Disease N Cholesterol N Diabetes N Autoimmune disease N Bleeding Disorder N Orthotics N Arthritis N Seizures/Epilepsy N Blood Clot N AIDS/HIV N Congestive Heart Failure (CHF) N Acid Reflux (GERD) N Cancer Y Stroke N Asthma N Circulation Problems N Peripheral Vascular Disease N Sleep Apnea N Hepatitis N Heart Disease N Rheumatoid Arthritis N Arrhythmia N Pulmonary Embolism N Headaches N Fibromyalgia N Hypertension N Osteoporosis N Past Encounters Encounter ID Performer Location Encounter Start Date Encounter Closed Date Diagnosis/Indication Diagnosis SNOMED-CT Code Diagnosis ICD10 Code Diagnosis Note [id number] Casa Granado, PT [facility] [address] [place] [address] 04/18/2024 06:53:27 04/18/2024 08:17:14 Aftercare [id number] Z47.1 Z96.137 [id number] Cassandra Mckeon DPT [facility] [address] [place] [address] 04/25/2024 06:56:48 04/25/2024 07:53:13 Aftercare [id number] Z47.1 Z96.150 [id number] MD [facility] [address] [place] [address] 04/30/2024 07:25:36 04/30/2024 08:26:13 Aftercare [id number] Z47.1 Z96.735 [id number] Casa Granado, PT [facility] [address] [place] [address] 05/11/2024 07:18:36 05/11/2024 09:32:12 Aftercare [id number] Z47.1 Z96.460 [id number] Casa Granado, PT [facility] [address] [place] [address] 05/18/2024 07:23:56 05/18/2024 10:03:09 Aftercare [id number] Z47.1 Z96.611 Health Concerns Section Related Observation LastModified by Organization Detai ls LastModified Time None Recorded Concern Status LastModified by Organization Details LastModified Time None Recorded Payers Encounter Date Sequence Insurance Name Policy Number Policy Silver Covered Member ID Silver Member ID Guarantor Name 05/18/2024 1 MEDICARE B-KS: [facility] Narayan Ceballos [id number] Narayan Ceballos 05/18/2024 2 [facility]: [facility] [place] [id number] Narayan Ceballos [id number] Narayan Ceballos Notes Date Note Type Note Provider Name and Address Organization Details Recorded Time 05/18/2024 text/html Pt reports 0/10 px in R shoulder. Has been using his total gym at home with no issues. Some soreness from shoveling this week Lakisha Villarreal, APPLICATION SPECIALIST [address], [place], [address], [facility] [place] [facility] 05/18/2024 11:34:52
--- OUTSIDE RECORDS SUMMARY | 2024-06-05 07:25 | XMS_ITS | Continuity of Care Document ---
Author Organization [facility], GARRETT Sarmiento PT Address [address] [place] [address] Care Team Providers Care Podiatric Foot And Ankle Specialist Name Role Phone FABY DURHAM Referring Provider FABY DURHAM Primary Care Provider Assessment Encounter Date Assessment Date Assessment LastModified by Organization Details LastModified Time 05/25/2024 05/25/2024 Assessment: Good overall ROM with improving mechanics. Making steady gains increasing strength. good james to wall stabilization exercises. mild UT tightness Plan: Continue PT @ 1x/wk to decrease pain, increase ROM, optimize mechanics, and improve participation in functional activities. finish out appts then D/c to I HEP. [email or web address] Not available 05/25/2024 08:14:26 Plan of Treatment Reminders Order Date Submit Date Provider Last Modified By Organization Details Last Modified Time Details Appointments RECHECK 15 2024 08:30A Yudith Nielsen PA-C Not available Not available Not available Lab None recorded . Referral None recorded . Procedures None recorded . Surgeries None recorded . Imaging None recorded . Medication Orders None recorded . Patient TargetsNo targets recorded. Patient InstructionsNo instructions recorded. Reason for Referral None Reported. Procedures Surgical History Date Name Laterality Status Provider Name and Address Organization Details Recorded Time 4 26683 Therapeutic Exercise (1:1) completed Casa Granado, PT [address], [place], [address], [facility] 03/26/2024 16:11:52 4 38195 Therapeutic Exercise (1:1) completed Lakisha Villarreal, DATA COMPILER [address], [place], [address], [facility] 03/22/2024 14:19:44 4 65818: Manual therapy completed Lakisha Villarreal, DATA COMPILER [address], [place], [address], [facility] 03/22/2024 14:19:44 4 62699 Therapeutic Exercise (1:1) completed Casa Granado, PT [address], [place], [address], [facility] 03/16/2024 12:41:20 4 27647: Manual therapy completed Casa Granado, PT [address], [place], [address], [facility] 03/16/2024 12:41:20 4 18521 Therapeutic Exercise (1:1) completed Casa Granado, PT [address], [place], [address], [facility] 03/15/2024 06:31:03 4 89512: Manual therapy completed Casa Granado, PT [address], [place], [address], [facility] 03/15/2024 06:31:03 4 64000 Therapeutic Exercise (1:1) completed Casa Granado, PT [address], [place], [address], [facility] 03/12/2024 18:20:54 4 66762: Manual therapy completed Casa Granado, PT [address], [place], [address], [facility] 03/13/2024 15:27:52 4 13316 Therapeutic Exercise (1:1) completed Lakisha Villarreal, DATA COMPILER [address], [place], [address], [facility] 03/05/2024 06:41:29 4 50134: Manual therapy completed Lakisha Villarreal PTA [address], [place], [address], [facility] 03/05/2024 12:30:39 4 31408 Therapeutic Exercise (1:1) completed Casa Granado, PT [address], [place], [address], [facility] 03/01/2024 15:14:27 4 40496: Manual therapy completed Casa Granado, PT [address], [place], [address], [facility] 03/01/2024 15:14:27 4 65609 Therapeutic Exercise (1:1) completed Casa Granado, PT [address], [place], [address], [facility] 02/27/2024 10:55:20 4 66594: Manual therapy completed Casa Granado, PT [address], [place], [address], [facility] 02/27/2024 10:55:20 4 93833 Therapeutic Exercise (1:1) completed Casa Granado, PT [address], [place], [address], [facility] 02/24/2024 10:04:16 4 75743: Manual therapy completed Casa Granado, PT [address], [place], [address], [facility] 02/23/2024 14:42:13 4 93942 Therapeutic Exercise (1:1) completed Lakisha Villarreal PTA [address], [place], [address], [facility] 02/17/2024 14:52:00 4 50735: Manual therapy completed Lakisha Villarreal DATA COMPILER [address], [place], [address], [facility] 02/17/2024 14:52:00 4 13492 Therapeutic Exercise (1:1) completed Lakisha Villarreal DATA COMPILER [address], [place], [address], [facility] 02/16/2024 15:29:45 4 84057: Manual therapy completed Lakisha Villarreal DATA COMPILER [address], [place], [address], [facility] 02/16/2024 15:29:46 4 18612 Therapeutic Exercise (1:1) completed Lakisha Villarreal DATA COMPILER [address], [place], [address], [facility] 02/15/2024 08:24:38 4 61710: Manual therapy completed Lakisha Villarreal PTA [address], [place], [address], [facility] 02/15/2024 08:24:45 4 18238 Therapeutic Exercise (1:1) completed Casa Granado, PT [address], [place], [address], [facility] 02/08/2024 11:17:58 4 18917: Low complexity PT Eval completed Casa Granado, PT [address], [place], [address], [facility] 02/08/2024 11:18:01 4 G8417 BMI Above Upper Parameters, F/U Documented completed Casa Granado, PT [address], [place], [address], [facility] 02/09/2024 07:15:11 4 G8427 Current Medication Documented completed Casa Granado, PT [address], [place], [address], [facility] 02/09/2024 07:15:05 4 Jesus INJ completed Casa Finnegan PA-C [address], [place], [address], [facility] [place] [facility] 09/19/2023 13:58:06 Imaging Results None recorded. Procedure [...] Disease N Heart Trouble N Heart Attack (NC) N Gastrointestinal Disease N Cholesterol N Diabetes [...] SNOMED-CT Code Diagnosis ICD10 Code Diagnosis Note [id number] Cassandra Mckeon, DPT [facility] [address] [place] [address] 04/25/2024 06:56:48 04/25/2024 07:53:13 Aftercare [id number] Z47.1 Z96.021 [id number] MD [facility] [address] [place] [address] 04/30/2024 07:25:36 04/30/2024 08:26:13 Aftercare [id number] Z47.1 Z96.827 [id number] Casa Granado PT [facility] [address] [place] [address] 05/11/2024 07:18:36 05/11/2024 09:32:12 Aftercare [id number] Z47.1 Z96.428 [id number] Casa Granado, PT [facility] [address] [place] [address] 05/18/2024 07:23:56 05/18/2024 10:03:09 Aftercare [id number] Z47.1 Z96.320 [id number] Casa Granado, PT [facility] [address] [place] [address] 05/25/2024 07:13:58 05/25/2024 08:21:42 Aftercare [id number] Z47.1 Z96.611 Health Concerns Section Related Observation LastModified by Organization Detai ls LastModified Time None Recorded Concern Status LastModified by Organization Details LastModified Time None Recorded Payers Encounter Date Sequence Insurance Name Policy Number Policy Silver Covered Member ID Islver Member ID Guarantor Name 05/25/2024 1 MEDICARE B-[place]: [facility] Narayan Ceballos [id number] Narayan Ceballos 05/25/2024 2 [facility] [place] [facility] [place] [id number] Narayan Ceballos [id number] Narayan Ceballos Notes Date Note Type Note Provider Name and Address Organization Details Recorded Time 05/25/2024 text/html Pt reports 0/10 px in R shoulder. Has been using his total gym at home with no issues. Reports no new issues with R shoulder but has some soreness in L shoulder. Lakisha Villarreal, DATA COMPILER [address], [place], [address], [facility] [place] [facility] 05/25/2024 08:14:43
--- OUTSIDE RECORDS SUMMARY | 2024-06-05 07:25 | XMS_ITS | Continuity of Care Document ---
Author Organization [facility], GARRETT Sarmiento PT Address [address] [place] [address] Care Team Providers Care Barrel Leveler Name Role Phone FABY DURHAM Referring Provider FABY DURHAM Primary Care Provider Assessment Encounter Date Assessment Date Assessment LastModified by Organization Details LastModified Time 06/01/2024 06/01/2024 Assessment: Great overall ROM with improving mechanics. Making steady gains increasing strength. Improving active mechanics Plan: D/c to I HEP. [email or web address] Not available 06/01/2024 08:12:54 Plan of Treatment Reminders Order Date Submit [...] and Address Organization Details Recorded Time 4 19905 Therapeutic Exercise (1:1) completed Casa Granado, PT [address], [place], [address], [facility] 03/26/2024 16:11:52 4 10089 Therapeutic Exercise (1:1) completed Lakisha Villarreal PTA [address], [place], [address], [facility] 03/22/2024 14:19:44 4 02997: Manual therapy completed Lakisha Villarreal, LENS GRINDER ROUGH [address], [place], [address], [facility] 03/22/2024 14:19:44 4 83756 Therapeutic Exercise (1:1) completed Casa Granado, PT [address], [place], [address], [facility] 03/16/2024 12:41:20 4 50005: Manual therapy completed Casa Granado, PT [address], [place], [address], [facility] 03/16/2024 12:41:20 4 45941 Therapeutic Exercise (1:1) completed Casa Granado PT [address], [place], [address], [facility] 03/15/2024 06:31:03 4 48811: Manual therapy completed Casa Granado PT [address], [place], [address], [facility] 03/15/2024 06:31:03 4 30031 Therapeutic Exercise (1:1) completed Casa Granado PT [address], [place], [address], [facility] 03/12/2024 18:20:54 4 49026: Manual therapy completed Casa Granado PT [address], [place], [address], [facility] 03/13/2024 15:27:52 4 45965 Therapeutic Exercise (1:1) completed Lakisha Villarreal LENS GRINDER ROUGH [address], [place], [address], [facility] 03/05/2024 06:41:29 4 87256: Manual therapy completed Lakisha Villarreal LENS GRINDER ROUGH [address], [place], [address], [facility] 03/05/2024 12:30:39 4 57211 Therapeutic Exercise (1:1) completed Casa Granado, PT [address], [place], [address], [facility] 03/01/2024 15:14:27 4 77197: Manual therapy completed Casa Granado, PT [address], [place], [address], [facility] 03/01/2024 15:14:27 4 31737 Therapeutic Exercise (1:1) completed Casa Granado, PT [address], [place], [address], [facility] 02/27/2024 10:55:20 4 08113: Manual therapy completed Casa Granado, PT [address], [place], [address], [facility] 02/27/2024 10:55:20 4 13473 Therapeutic Exercise (1:1) completed Casa Granado, PT [address], [place], [address], [facility] 02/24/2024 10:04:16 4 82183: Manual therapy completed Casa Granado, PT [address], [place], [address], [facility] 02/23/2024 14:42:13 4 24647 Therapeutic Exercise (1:1) completed Lakisha Villarreal, LENS GRINDER ROUGH [address], [place], [address], [facility] 02/17/2024 14:52:00 4 10602: Manual therapy completed Lakisha Villarreal LENS GRINDER ROUGH [address], [place], [address], [facility] 02/17/2024 14:52:00 4 08249 Therapeutic Exercise (1:1) completed Lakisha Villarreal, LENS GRINDER ROUGH [address], [place], [address], [facility] 02/16/2024 15:29:45 4 11673: Manual therapy completed Lakisha Villarreal LENS GRINDER ROUGH [address], [place], [address], [facility] 02/16/2024 15:29:46 4 07800 Therapeutic Exercise (1:1) completed Lakisha Villarreal LENS GRINDER ROUGH [address], [place], [address], [facility] 02/15/2024 08:24:38 4 83925: Manual therapy completed Lakisha Villarreal LENS GRINDER ROUGH [address], [place], [address], [facility] 02/15/2024 08:24:45 4 12329 Therapeutic Exercise (1:1) completed Casa Granado PT [address], [place], [address], [facility] 02/08/2024 11:17:58 4 15890: Low complexity PT Eval completed Casa Granado PT [address], [place], [address], [facility] 02/08/2024 11:18:01 4 G8417 BMI Above Upper Parameters, F/U Documented completed Casa Granado PT [address], [place], [address], [facility] 02/09/2024 07:15:11 4 G8427 Current Medication Documented completed Casa Granado PT [address], [place], [address], [facility] 02/09/2024 07:15:05 4 JZShoulder INJ completed Casa Finnegan PA-C [address] [facility], [place], [address], [facility] 09/19/2023 13:58:06 Imaging Results None recorded. Procedure [...] Response Allergies/Hayfever N Coronary Artery Disease N Breathing or lung disorders N Anxiety/Depression N Emphysema N Nerve Disorders Y Thyroid Problems N COPD N Pacemaker N Kidney/Bladder Problems N Anemia N Vascular Disease N Heart Trouble N Gastrointestinal Disease N Heart Attack (TN) N Cholesterol N Diabetes N Autoimmune disease [...] SNOMED-CT Code Diagnosis ICD10 Code Diagnosis Note [id number] Csaa Granado PT [facility] [address] [place] [place] [address] 05/11/2024 07:18:36 05/11/2024 09:32:12 Aftercare [id number] Z47.1 Z96.548 [id number] Casa Granado PT [facility] [address] [place] [place] [address] 05/18/2024 07:23:56 05/18/2024 10:03:09 Aftercare [id number] Z47.1 Z96.379 [id number] Casa Granado PT [facility] [address] [place] [address] 05/25/2024 07:13:58 05/25/2024 08:21:42 Aftercare [id number] Z47.1 Z96.174 [id number] Cassandra Mckeon, DPT [facility] [address] [place] [address] 06/01/2024 07:22:54 06/01/2024 08:13:34 Aftercare [id number] Z47.1 Z96.611 Health Concerns Section Related Observation LastModified by Organization Detai ls LastModified Time None Recorded Concern Status LastModified by Organization Details LastModified Time None Recorded Payers Encounter Date Sequence Insurance Name Policy Number Policy Silver Covered Member ID Silver Member ID Guarantor Name 06/01/2024 1 [place]ICARE [place]: [employer] Narayan Ceballos [id number] Narayan Ceballos 06/01/2024 2 [facility] [id number] Narayan Ceballos [id number] Narayan Ceballos Notes Date Note Type Note Provider Name and Address Organization Details Recorded Time 06/01/2024 text/html Pt reports 0/10 px in R shoulder. Has been using his total gym at home with no issues. Pt reports he is happy with his progress Lakisha Villarreal, LENS GRINDER ROUGH [address], [place], [address], [facility] 06/01/2024 08:13:11
--- OUTSIDE RECORDS SUMMARY | 2024-06-05 07:25 | XMS_ITS | Clinical Summary ---
Author Organization [facility] [address] [place] [address] [place] [phone] Phone Care Team Providers Care Office Coordinator Name Role Phone Marky Chacko MD Primary Care Provider [phone] Allergies No known active allergies Medications multivit-can line examiner als/folic acid (CENTRUM ADULTS ORAL) 1 TABLET DAILY 04/25/19 08 Active oxyCODONE (ROXICODONE) 5 mg immediate release tablet 12/17/19 23 Active ibuprofen (ADVIL,MOTRIN) 600 mg tablet Take 1 tablet (600 mg total) by mouth. 12/17/19 23 Active acetaminophen (TYLENOL) 500 mg tablet Take 1 tablet (500 mg total) by mouth. 12/17/19 23 Active pregabalin (LYRICA) 225 mg capsule Take 1 capsule (225 mg total) by mouth. Active pyridoxine (B-6) 100 mg tablet Take 1 tablet (100 mg total) by mouth. 12/19/19 19 Active simvastatin (ZOCOR) 20 mg tablet Take 1 tablet (20 mg total) by mouth. 11/24/19 23 Active atorvastatin (LIPITOR) 20 mg tablet Take 1 Tablet by mouth daily for 360 days. 10/26/19 24 025 Active albuterol HFA (PROVENTIL HFA;VENTOLIN HFA) 108 (90 Base) MCG/ACT inhaler Route: Inhale 2 Puffs into the lungs every 4 hours as needed for Cough or Wheezing. - Inhalation Active UNABLE TO FIND Med Name: Pyridoxine HCl (vitamin B-6) 100 MG tablet 12/18/2018 Sig - Route: Take 1 Tablet by mouth. - Oral Active amLODIPine (NORVASC) 5 mg tablet Take 1 tablet (5 mg total) by mouth 1 (one) time each day. 90 tablet 1 05/10/19 25 Active amLODIPine (NORVASC) 5 mg tablet Take 1 tablet (5 mg total) by mouth 1 (one) time each day. 05/02/19 24 025 Discontinued Active Problems Problem Noted Date Diagnosed Date Cervical spondylosis 09/09/2023 Overview (01/10/2024): Last Assessment & Plan: I reviewed the imaging and EMG findings in detail with Mr. Hayes and I do not believe this is a cervical radiculopathy. Other than the autofused C3-4, there are mild degenerative changes only and no exiting nerve root compression particularly at C6 or C7 which would affect the left hand. There is no cord compression or signal change in the cord at any level. The EMG findings show that there was improvement in the left median neuropathy since the last EMG so, the carpal tunnel release did have a positive effect. He may see more improvements in time as he has not reached maximal medical improvement which is usually 1 year after surgery and he will plan to continue his physical therapy. Pulmonary nodules 08/17/2022 Overview (06/16/2023): Last Assessment & Plan: Gretta has subcentimeter pulmonary nodules found on lung cancer screening CT. Continue with lung cancer screening program Return to clinic in 1 year Chronic cough 06/22/2022 Overview (06/16/2023): Last Assessment & Plan: Cough have now subsided. Likely was secondary to acute respiratory infection. He has some mild chronic cough that does not bother him. He was a smoker but quit 13 years ago. Left carpal tunnel syndrome 04/16/2022 Chronic pain of lower extremity 07/04/2020 Basal cell carcinoma (BCC) 11/06/2019 Hypertension 11/06/2019 Renal cyst, left 11/06/2019 Nephrolithiasis 07/11/2018 Overview (06/16/2023): Dr. Jose G Rebollar Hypercalcuria Patient is treated with Vitamin B-6 and Indapamide 1.25 mg 1x daily Airway clearance impairment 12/14/2017 Overview (06/16/2023): Received a DIFFICULT AIRWAY REPORT from [facility] dated 11/15/2015. Patient was undergoing a surgical procedure and they had difficulty performing endotracheal intubation. A copy of this form will be scanned into the patient's EMR. Hyperparathyroidism 02/24/2007 Overview (06/16/2023): Parathyroidectomy 2000 Mixed hyperlipidemia 02/24/2007 Umbilical hernia 02/24/2007 Overview (06/16/2023): Repair 2002 Encounters Date Type Department Care Team Description 03/06/2024 1:00 PM EST Office Visit Adult Medicine [address] [address] Marky Chacko MD History of right shoulder replacement (Primary Dx); Primary hypertension; Mixed hyperlipidemia; Hyperglycemia; Obesity (BMI 30-39.9) from Last 3 Months Immunizations Name Administration Dates Next Due Influenza Quadravalent, 0.5m l (Fluzone High-dose) 65yo and older 02/11/2023,01/07/2021 Influenza Quadravalent, MDCK , 0.5ml, preservative free (Flucelvax) 6mo and older 04/17/2018 Influenza trivalent, 0.5mL ( Fluzone High-dose) 65yo and older 01/07/2021,03/26/2016,03/14/2015,2013,03/05/2013,03/10/2012,03/01/2011,1 04/20/2009,03/22/2008 Pneumococcal conjugate 20 va lent (Prevnar 20, PCV 20) 2mo and older 03/06/2024 Td Tetanus diptheria (Tdvax) 7yo and older 04/15/2017 Tdap Tetanus diptheria acell ular pertussis (Boostrix; Adacel) 7yo and older 02/24/2007 Zoster Live 04/28/2016 Surgical History Surgery Date Site/Laterality Comments PARATHYROIDECTOMY 1999 PROCEDURE: HISTORICAL PARATHYROIDECTOMY HERNIA REPAIR 2002 PROCEDURE: HISTORICAL HERNIA REPAIR/UMB COLONOSCOPY 09/08/07 PROCEDURE: HISTORICAL COLONOSCOPY; COMMENT: normal; repeat in ten years MULTIPLE TOOTH EXTRACTIONS PROCEDURE: HISTORICAL DENTAL EXTRACTION OTHER SURGICAL HISTORY PROCEDURE: HISTORICAL MELANOMA CARPAL TUNNEL RELEASE 02/2020 Left PROCEDURE: HISTORICAL CARPAL TUNNEL REL Medical History Medical History Date Comments Hyperparathyroidism (CMS/HCC) 02/24/2007 DX :Hyperparathyroidism (HCC); COMMENT: Parathyroidectomy 1999 Umbilical hernia 02/24/2007 DX:Umbilical he rnia; COMMENT: Repair 2002 Mixed hyperlipidemia 02/24/2007 DX:Mixed hy perlipidemia Historical Medical DX 12/19/2006 DX:Other a nd unspecified malignant neoplasm of skin of other and unspecified parts of face History of basal cell carcinoma 02/24/2007 DX:History of basal cell carcinoma; COMMENT: BCC 03/25 right forearm (nodular) 03/24 nose (nodular) 12/16 back Airway clearance impairment 12/14/2017 DX:A irway clearance impairment; COMMENT: Received a DIFFICULT AIRWAY REPORT from [facility] dated 11/15/2015. Patient was undergoing a surgical procedure and they had difficulty performing endotracheal intubation. A copy of this form will be scanned into the patient's EMR. Family History Medical History Relation Name Comments Hypertension Father Basal cell carcinoma Mother Breast cancer Mother Diabetes Mother Squamous cell carcinoma Mother Relation Name Status Comments Father Alive Mother Social History Tobacco Use Types Packs/Day Years Used Date Smoking Tobacco: Former Cigarettes Q uit: 05/23/2012 Smokeless Tobacco: Former Quit: 02/20/2011 Tobacco Cessation:Counseling Given: Not Answered Alcohol Use Standard Drinks/Week Comments Yes 0 (1 standard drink = 0.6 oz pur e alcohol) Sex and Gender Information Value Date Recorded Sex Assigned at Not on file Legal Sex Male 6:43 AM EST Gender Identity Not on file Sexual Orientation Not on file Obstetrics History Last Filed Vital Signs Vital Sign Reading Time Taken Comments Blood Pressure 128/64 03/06/2024 1:13 PM EST Pulse 72 03/06/2024 1:13 PM EST Temperature 36.2 ??C (97.1 ??F) 03/06/2024 1:13 PM ES T Respiratory Rate 12 03/06/2024 1:13 PM EST Oxygen Saturation - - Inhaled Oxygen Concentration - - Weight 88 kg (194 lb) 03/06/2024 1:13 PM EST Height 167.6 cm (5' 6 ) 03/06/2024 1:13 PM EST Body Mass Index 31.31 03/06/2024 1:13 PM EST Plan of Treatment Upcoming Encounters Date Type Department Care Team (Late st Contact Info) Description 08/13/2024 8:45 AM EDT Office Visit Adult Medicine [facility] [address] [place] [address] Marky Chacko MD [address] [place] [address] Health Maintenance Due Date Last Done Comments RSV Immunization Patients 60+ Years Old (1 - Risk 60-74 years 1-dose series) 2015 Zoster Vaccines (1 of 2) 06/23/2016 04/28/2016 Abdominal Aortic Aneurysm (AAA) Screen 03/20/2022 Social Influencers of Health Screening 03/20/2022 Hypertension/CHF/CAD Annual BMP Blood Test 04/12/2024 04/12/2023 Depression Screening 04/27/2024 04/27/2023, 04/27/19 24 Falls Risk Assessment 04/27/2024 04/27/2023, 024 Medicare Annual Wellness Visit 04/27/2024 04/27/2023 Lung Cancer Screening (Low Dose CT) 08/15/2024 08/16/2023, 08/16/2023, 08/16/2022 DTaP,Tdap,and Td Vaccines (3 - Td or Tdap) 04/15/2027 04/15/2017, 02/24/2007 Colorectal Cancer Screening: Colonoscopy 10/02/2028 10/02/2018, 10/02/2018 Cholesterol Screening (Lipid Panel) 02/05/2029 02/06/2024, 10/18/2023, 10/18/2023, Additional history exists Hepatitis C Screening Completed 09/02/2012, 013 COVID-19 Vaccine Completed 01/09/2024, 01/2023, 02/10/2021, Additional history exists Influenza Vaccine Completed 01/09/2024, , 01/07/2021, Additional history exists Pneumococcal Vaccine: 50+ Years Completed 03/06/2024 HIB Vaccines Aged Out No longer eligi ble based on patient's age to complete this topic HPV Vaccines Aged Out No longer eligi ble based on patient's age to complete this topic Hepatitis A Vaccines Aged Out No long er eligible based on patient's age to complete this topic Hepatitis B Vaccines Aged Out No long er eligible based on patient's age to complete this topic IPV Vaccines Aged Out No longer eligi ble based on patient's age to complete this topic MMR Vaccines Aged Out No longer eligi ble based on patient's age to complete this topic Meningococcal ACWY Vaccine Aged Out N o longer eligible based on patient's age to complete this topic Meningococcal B Vacine Aged Out No lo nger eligible based on patient's age to complete this topic RSV Immunization Patients Under 20 months Aged Out No longer eligible based on patient's age to complete this topic Varicella Vaccines Aged Out No longer eligible based on patient's age to complete this topic Procedures Procedure Name Priority Date/Time Associated Diagnosis Comments LIPID PANEL Routine 10/18/2023 CT LUNG SCREENING LOW DOSE Routine 08/16/2023 1:32 PM EDT Encounter for screening for malignant neoplasm of respiratory organs DEPRESSION SCREENING Routine 04/27/2023 FALLS RISK ASSESSMENT Routine 04/27/2023 ANNUAL BMP BLOOD TEST Routine 04/12/2023 COLONOSCOPY Routine 10/02/2018 HEPATITIS C SCREENING Routine 09/02/2012 from Last 3 Months or Most Recently Relevant to Health Maintenance Results * (ABNORMAL) Lipid panel (10/18/2023) LDL/HDL Ratio 3 0 - 4 Triglycerides 73 0 - 150 mg/dL Cholesterol 174 0 - 200 mg/dL HDL 53 >=40 mg/dL LDL Cholesterol 107(A) 0 - 100 mg/dL Blood Venous blood specimen / Unknown us Historical Provider LAB BLOOD ORDERABLES Daysi shultz Result * CT LUNG SCREENING LOW DOSE (08/16/2023 1:32 PM EDT) Anatomical Region Laterality Modality Computed Tomogra phy 08/16/2023 7:21 AM EDT Narrative 08/16/2023 1:[address] [facility] Diagnostic Imaging Department [address] [place] [address] Patient: ??GRETTA HAYES ?/Age/Sex: 1955 - 67 - M Unit#: ??[id number] ? Location/Status: ??SPDICATLS/REG CLI ? Mnemonic/Ordering Site: ??CTLUNGLD/SPCT Ordering Physician: ??BRIAN LOPEZ MD CT Lung Screening Low Dose - 08/16/23727 Report Status:Signed Chest CT, 08/16/2023 11:48 AM. TECHNIQUE: Low-dose CT of the chest without intravenous contrast administration. ??Coronal and sagittal reformats and MIP reconstructions were created. Dose length product: 157 ??mGy-cm. HISTORY: FORMER SMOKER; 38 VIVEK COMPARISON: 08/09/2022. FINDINGS: Lungs/pleura: Normal caliber airways. ??Mild bronchial wall thickening at the bases. ??No endobronchial nodule. ??Bands of scarring and/or atelectasis at the bases. ??There are a few small calcified and noncalcified pulmonary nodules which are unchanged. ??The largest is a 3 mm nodule in the right middle lobe, series 3 image 158. Mediastinum/prabhu: No mass or lymphadenopathy. Vasculature: Normal caliber pulmonary arteries. ??Mild atherosclerotic calcification of the aorta and great vessels. Cardiac: Moderate coronary artery calcifications. ??Mild cardiomegaly. Chest wall: No mass or lymphadenopathy. Limited abdomen: Small duodenal diverticulum. Bones: Prominent degenerative changes of the glenohumeral joints. ??Mild degenerative changes of the spine. IMPRESSION: Lung RADS 2. ??Recommend repeat annual low-dose screening CT in 12 months as per guidelines. Dictating Physician: ??BEN HOUSER MD Electronically Signed by: ??BEN HOUSER MD Dic Date/Time: ??08/16/23 1148 Sign date/Time: ??08/16/23 1332 Procedure Note Ben Houser MD - 11/28/2023 [facility] Diagnostic Imaging Department [address] [place] [address] [id number] Patient: ABIGAILGRETTA NICK /Age/Sex: 1955 - 67 - M Unit#: [id number] Location/Status: SPDICATLS/REG CLI Mnemonic/Ordering Site: [facility] Ordering Physician: BRIAN LOPEZ MD CT Lung Screening Low Dose - 08/16/23 - 0728 Report Status:Signed Chest CT, 08/16/2023 11:48 AM. TECHNIQUE: Low-dose CT of the chest without intravenous contrast administration. Coronal and sagittal reformats and MIP reconstructionswere created. Dose length product: 157 mGy-cm. HISTORY: FORMER SMOKER; 38 VIVEK COMPARISON: 08/09/2022. FINDINGS: Lungs/pleura: Normal caliber airways. Mild bronchial wall thickening atthe bases. No endobronchial nodule. Bands of scarring and/or atelectasis atthe bases. There are a few small calcified and noncalcified pulmonary noduleswhich are unchanged. The largest is a 3 mm nodule in the right middle lobe,series 3 image 158. Mediastinum/prabhu: No mass or lymphadenopathy. Vasculature: Normal caliber pulmonary arteries. Mild atherosclerotic calcification of the aorta and great vessels. Cardiac: Moderate coronary artery calcifications. Mild cardiomegaly. Chest wall: No mass or lymphadenopathy. Limited abdomen: Small duodenal diverticulum. Bones: Prominent degenerative changes of the glenohumeral joints. Mild degenerative changes of the spine. IMPRESSION: Lung RADS 2. Recommend repeat annual low-dose screening CT in 12 monthsas per guidelines. Dictating Physician: BEN HOUSER MD Electronically Signed by: BEN HOUSER MD Dic Date/Time: 08/16/23 1148 Sign date/Time: 08/16/23 1332 Result [facility] Brian Lopez MD IMG CT PROCEDURES Final Result * Falls Risk Assessment (04/27/2023) [facility] Falls Risk Assessment ABSTRACTED Result [facility] Historical Christine DOMINGO HEALTH MAINTENANCE Final Result * Depression Screening (04/27/2023) [facility] Depression Screening ABSTRACTED Result [facility] Christine DOMINGO HEALTH MAINTENANCE Final Result * Annual BMP Blood Test (04/12/2023) [facility] Annual BMP Blood Test ABSTRACTED Result [facility] Christine DOMINGO HEALTH MAINTENANCE Final Result * Colonoscopy (10/02/2018) [facility] Colonoscopy no interpretation , abstracted Anatomical Region Laterality Modality Other Historical Provider HEALTH MAINTENANCE Final Result * Hepatitis C Screening (09/02/2012) [facility] Hepatitis C Screening ABSTRACTED Historical Provider HEALTH MAINTENANCE Final Result from Last 3 Months or Most Recently Relevant to Health Maintenance Insurance MEDICARE Care Teams Office Coordinator Relationship Specialty Start Date End Date Marky Chacko MD [address] [place] [address] PCP - General Internal Medicine 10/15/20
--- OUTSIDE RECORDS SUMMARY | 2024-06-05 07:26 | XMS_ITS | Data Portability ---
Author Organization [facility] Alexander Torres [facility], [facility] Address [address] [place] [address] Care Team Providers Care Reservoir Caretaker Name Role Phone FABY DURHAM Referring Provider FABY DURHAM Primary Care Provider Assessment Encounter Date Assessment Date Assessment LastModified by Organization Details LastModified Time 04/30/2024 04/30/2024 Assessment: Making good steady progress increasing ROM, good active mechanics. Making steady progress increasing strength, fatigues quickly. Plan: Continue PT @ 1x/wk to decrease pain, increase ROM, optimize mechanics, and improve participation in functional activities. finish out appts then D/c to I HEP. [email or web address] Not available 04/26/2024 18:30:36 05/11/2024 05/11/2024 Assessment: Good overall ROM with improving mechanics. Making steady gains increasing strength Plan: Continue PT @ 1x/wk to decrease pain, increase ROM, optimize mechanics, and improve participation in functional activities. finish out appts then D/c to I HEP. Not available 05/11/2024 08:23:45 05/18/2024 05/18/2024 Assessment: Good overall ROM with improving mechanics. Making steady gains increasing strength. good james to wall stabilization exercises. Plan: Continue PT @ 1x/wk to decrease pain, increase ROM, optimize mechanics, and improve participation in functional activities. finish out appts then D/c to I HEP. [email or web address] Not available 05/18/2024 11:34:36 05/25/2024 05/25/2024 Assessment: Good overall ROM with improving mechanics. Making steady gains increasing strength. good james to wall stabilization exercises. mild UT tightness Plan: Continue PT @ 1x/wk to decrease pain, increase ROM, optimize mechanics, and improve participation in functional activities. finish out appts then D/c to I HEP. [email or web address] Not available 05/25/2024 08:14:26 06/01/2024 06/01/2024 Assessment: Great overall ROM with improving mechanics. Making steady gains increasing strength. Improving active mechanics Plan: D/c to I HEP. [email or web address] Not available 06/01/2024 08:12:54 Plan of Treatment [...] and Address Organization Details Recorded Time 4 59098 Therapeutic Exercise (1:1) completed [facility] [address], [place], [address], [facility] 03/26/2024 16:11:52 4 12853 Therapeutic Exercise (1:1) completed Lakisha Villarreal PTA [address], [place], [address], [facility] 03/22/2024 14:19:44 4 18408: Manual therapy completed Lakisha Villarreal PTA [address], [place], [address], [facility] 03/22/2024 14:19:44 4 15807 Therapeutic Exercise (1:1) completed [facility] [address], [place], [address], [facility] 03/16/2024 12:41:20 4 41366: Manual therapy completed [facility] [address], [place], [address], [facility] 03/16/2024 12:41:20 4 43091 Therapeutic Exercise (1:1) completed Casa Granado, PT [address], [place], [address], [facility] 03/15/2024 06:31:03 4 28168: Manual therapy completed Casa Granado, PT [address], [place], [address], [facility] 03/15/2024 06:31:03 4 06611 Therapeutic Exercise (1:1) completed Casa Granado, PT [address], [place], [address], [facility] 03/12/2024 18:20:54 4 26934: Manual therapy completed Casa Granado, PT [address], [place], [address], [facility] 03/13/2024 15:27:52 4 94590 Therapeutic Exercise (1:1) completed Lakisha Villarreal, ORGANIC PREPARATION TECHNICIAN [address], [place], [address], [facility] 03/05/2024 06:41:29 4 87227: Manual therapy completed Lakisha Villarreal, ORGANIC PREPARATION TECHNICIAN [address], [place], [address], [facility] 03/05/2024 12:30:39 4 80619 Therapeutic Exercise (1:1) completed Casa Granado, PT [address], [place], [address], [facility] 03/01/2024 15:14:27 4 49120: Manual therapy completed aCsa Granado, PT [address], [place], [address], [facility] 03/01/2024 15:14:27 4 47000 Therapeutic Exercise (1:1) completed Casa Granado, PT [address], [place], [address], [facility] 02/27/2024 10:55:20 4 95026: Manual therapy completed [facility] [address], [place], [address], [facility] 02/27/2024 10:55:20 4 72310 Therapeutic Exercise (1:1) completed Casa Granado, PT [address], [place], [address], [facility] 02/24/2024 10:04:16 4 06238: Manual therapy completed [facility] PT [address], [place], [address], [facility] 02/23/2024 14:42:13 4 75376 Therapeutic Exercise (1:1) completed Lakisha Villarreal PTA [address], [place], [address], [facility] 02/17/2024 14:52:00 4 22672: Manual therapy completed Lakisha Villarreal PTA [address], [place], [address], [facility] 02/17/2024 14:52:00 4 94543 Therapeutic Exercise (1:1) completed Lakisha Villarreal PTA [address], [place], [address], [facility] 02/16/2024 15:29:45 4 87015: Manual therapy completed Lakisha Villarreal PTA [address], [place], [address], [facility] 02/16/2024 15:29:46 4 88131 Therapeutic Exercise (1:1) completed Lakisha Villarreal PTA [address], [place], [address], [facility] 02/15/2024 08:24:38 4 23752: Manual therapy completed Lakisha Villarreal, ORGANIC PREPARATION TECHNICIAN [address], [place], [address], [facility] 02/15/2024 08:24:45 4 42545 Therapeutic Exercise (1:1) completed Casa Granado, PT [address], [place], [address], [facility] 02/08/2024 11:17:58 4 69303: Low complexity PT Eval completed Casa Granado, PT [address], [place], [address], [facility] 02/08/2024 11:18:01 4 G8417 BMI Above Upper Parameters, F/U Documented completed Casa Granado, PT [address], [place], [address], [facility] 02/09/2024 07:15:11 4 G8427 Current Medication Documented completed Casa Granado, PT [address], [place], [address], [facility] 02/09/2024 07:15:05 4 JZShoulder INJ completed Casa Finnegan PA-C [address], [place], [address], [facility] 09/19/2023 13:58:06 Imaging Results None [...] Trouble N Gastrointestinal Disease N Heart Attack (SD) N Cholesterol N Diabetes N Autoimmune disease [...] SNOMED-CT Code Diagnosis ICD10 Code Diagnosis Note [id number] Casa Finnegan PA-C [facility] [address] [place] [address] 09/19/2023 13:05:45 10/06/2023 09:09:09 Pain of right shoulder joint [id number] 3634179 M25.511 Adhesive c apsulitis of right shoulder [id number] 57806 M75.01 Osteoarthr itis of right glenohumeral joint 1067445968 025922 M19.607 [id number] VARUN Vargas 2nd floor [address] [place] [address] 11/08/2023 09:19:30 12/07/2023 18:36:06 Pain of right shoulder joint [id number] 4263687 M25.511 Osteoarthr itis of right glenohumeral joint 4233885828 120502 M19.182 [id number] MD Torsten Acosta 2nd floor [address] [place] [address] 12/05/2023 08:02:49 12/28/2023 11:47:17 Osteoarthritis of joint of right shoulder region 3766184108 98117 M19.437 [id number] MD Torsten Acosta 2nd floor [address] [place] [address] 12/26/2023 14:19:12 01/17/2024 14:48:29 Osteoarthritis of joint of right shoulder region 0880896756 32267 M19.711 [id number] MD Kenn Acosta [facility] [place] [address] 01/13/2024 11:26:01 02/08/2024 09:12:03 History of reverse prosthetic total arthroplasty of right shoulder [id number] 9490194 Z96.655 [id number] Maria C Gore MD [facility] [address] [place] [address] 02/09/2024 06:44:56 02/09/2024 07:27:56 Aftercare [id number] Z47.1 Z96.597 [id number] Chon Nielsen PA-C [facility] [address] [place] [address] 02/15/2024 15:41:43 03/13/2024 09:48:38 Postoperative visit [id number] Z48.89 [id number] Casa Granado, PT [facility] [address] [place] [address] 02/15/2024 07:55:47 02/15/2024 08:32:10 Aftercare [id number] Z47.1 Z96.619 [id number] Casa Granado, PT [facility] [address] [place] [address] 02/17/2024 08:57:12 02/17/2024 10:14:24 Aftercare [id number] Z47.1 Z96.488 [id number] Casa Granado, PT [facility] [address] [place] [address] 02/20/2024 07:22:56 02/20/2024 09:00:09 Aftercare [id number] Z47.1 Z96.230 [id number] Casa Granado, PT [facility] [address] [place] [address] 02/24/2024 07:12:27 02/24/2024 10:01:57 Aftercare [id number] Z47.1 Z96.089 [id number] Casa Granado, PT [facility] [address] [place] [address] 02/28/2024 06:42:17 02/28/2024 07:47:47 Aftercare [id number] Z47.1 Z96.551 [id number] Casa Granado, PT [facility] [address] [place] [address] 03/02/2024 06:37:32 03/02/2024 07:52:37 Aftercare [id number] Z47.1 Z96.404 [id number] Casa Granado, PT [facility] [address] [place] [address] 03/05/2024 09:58:23 03/05/2024 10:31:30 Aftercare [id number] Z47.1 Z96.546 [id number] Casa Granado, PT [facility] [address] [place] [address] 03/13/2024 07:51:50 03/13/2024 08:16:36 Aftercare [id number] Z47.1 Z96.061 [id number] Maria C Gore MD [facility] [address] [place] [address] 03/15/2024 07:49:14 03/15/2024 09:07:32 Aftercare [id number] Z47.1 Z96.244 [id number] Casa Granado, PT [facility] [address] [place] [address] 03/20/2024 10:52:33 03/20/2024 11:59:43 Aftercare [id number] Z47.1 Z96.343 [id number] Casa Granado, PT [facility] [address] [place] [address] 03/23/2024 07:15:14 03/23/2024 08:39:38 Aftercare [id number] Z47.1 Z96.318 [id number] Casa Granado, PT [facility] [address] [place] [address] 03/27/2024 08:25:53 03/27/2024 08:55:55 Aftercare [id number] Z47.1 Z96.713 [id number] Casa Granado, PT [facility] [address] [place] [address] 03/30/2024 07:56:20 03/30/2024 09:56:10 Aftercare [id number] Z47.1 Z96.600 [id number] Casa Granado, PT [facility] [address] [place] [address] 04/03/2024 07:51:52 04/03/2024 09:41:36 Aftercare [id number] Z47.1 Z96.703 [id number] Casa Granado, PT [facility] [address] [place] [address] 04/06/2024 07:22:04 04/06/2024 09:03:18 Aftercare [id number] Z47.1 Z96.354 [id number] Cassandra Mckeon, DPT [facility] [address] [place] [address] 04/09/2024 07:53:28 04/09/2024 08:26:29 Aftercare [id number] Z47.1 Z96.517 [id number] MD GARRETT Acosta 2nd floor [address] [place] [address] 04/16/2024 09:27:32 04/30/2024 09:38:12 History of artificial joint [id number] Z96.893 [id number] Casa Granado, PT [facility] - [facility] [address] [place] [address] 04/18/2024 06:53:27 04/18/2024 08:17:14 Aftercare [id number] Z47.1 Z96.355 [id number] Cassandra Mckeon, DPT [facility] - [facility] [address] [place] [address] 04/25/2024 06:56:48 04/25/2024 07:53:13 Aftercare [id number] Z47.1 Z96.586 [id number] MD GARRETT [facility] [address] [place] [address] 04/30/2024 07:25:36 04/30/2024 08:26:13 Aftercare [id number] Z47.1 Z96.809 [id number] Casa Granado, PT [facility] - [facility] [address] [place] [address] 05/11/2024 07:18:36 05/11/2024 09:32:12 Aftercare [id number] Z47.1 Z96.811 [id number] Casa Granado, PT [facility] - [facility] [address] [place] [address] 05/18/2024 07:23:56 05/18/2024 10:03:09 Aftercare [id number] Z47.1 Z96.682 [id number] Casa Granado, PT [facility] - [facility] [address] [place] [address] 05/25/2024 07:13:58 05/25/2024 08:21:42 Aftercare [id number] Z47.1 Z96.709 [id number] Cassandra Mckeon, DPT [facility] [address] [place] [address] 06/01/2024 07:22:54 06/01/2024 08:13:34 Aftercare [id number] Z47.1 Z96.611 Health Concerns Section Related Observation LastModified by Organization Detai ls LastModified Time None Recorded Concern Status LastModified by Organization Details LastModified Time None Recorded Advance Directives Directive None Recorded Payers Encounter Date Sequence Insurance Name Policy Number Policy Silver Covered Member ID Silver Member ID Guarantor Name 04/30/2024 1 [place] [employer] Narayan Ceballos [id number] Narayan Lin 04/30/2024 2 [place] [facility] [employer] [place] ([facility]) [id number] Narayan Ceballos [id number] Narayan Whitneyba 05/11/2024 1 [place] [place] Narayan Whitneyba [id number] Narayan Whitneyba 05/11/2024 2 [place] [facility] ([facility]) [id number] Narayan Ceballos [id number] Narayan Whitneyba 05/18/2024 1 [place] [employer] Narayan Whitneyba [id number] Narayan Lin 05/18/2024 2 [place] [facility] ([facility]) [id number] Narayan Newby Lin [id number] Narayan Lin 05/25/2024 1 [place] [employer] Narayan Newby Lin [id number] Narayan Lin 05/25/2024 2 [place] [facility] ([facility]) [id number] Narayan Newby Lin [id number] Narayan Lin 06/01/2024 1 [place] [employer] Narayan Whitneyba [id number] Narayan Lin 06/01/2024 2 [place] [facility] ([facility]) [id number] Narayan Newby Lin [id number] Narayan Ceballos Notes Date Note Type Note Provider Name and Address Organization Details Recorded Time 04/30/2024 text/html Pain 0/10 at rest. No new complaints at this time. Has been using his total gym at home with no issues. Pt wishes to continue with PT; feels like it has been helping. Cassandra Mckeon, DPT [email or web address], [place], [address], [facility] 04/30/2024 10:06:04 05/11/2024 text/html Pt reports 0/10 px in R shoulder but notes L shoulder is starting to become bothersome. Has been using his total gym at home with no issues. Pt wishes to continue with PT; feels like it has been helping. Lakisha Villarreal ORGANIC PREPARATION TECHNICIAN [email or web address], [place], [address], [facility] 05/11/2024 08:24:00 05/18/2024 text/html Pt reports 0/10 px in R shoulder. Has been using his total gym at home with no issues. Some soreness from shoveling this week Lakisha Villarreal ORGANIC PREPARATION TECHNICIAN [email or web address], [place], [address], [facility] 05/18/2024 11:34:52 05/25/2024 text/html Pt reports 0/10 px in R shoulder. Has been using his total gym at home with no issues. Reports no new issues with R shoulder but has some soreness in L shoulder. Lakisha Villarreal, ORGANIC PREPARATION TECHNICIAN [address], [place], [address], [facility] 05/25/2024 08:14:43 06/01/2024 text/html Pt reports 0/10 px in R shoulder. Has been using his total gym at home with no issues. Pt reports he is happy with his progress Lakisha Villarreal PTA [address], [place], [address], [facility] 06/01/2024 08:13:11
--- OUTSIDE RECORDS SUMMARY | 2024-06-05 07:26 | XMS_ITS | Continuity of Care Document ---
Author Organization [facility], GARRETT Sarmiento PT Address [address] [place] [address] Care Team Providers Care Singing Telegram Performer Name Role Phone FABY DURHAM Referring Provider FABY DURHAM Primary Care Provider [phone] Assessment Encounter Date Assessment Date Assessment LastModified by Organization Details LastModified Time 05/11/2024 05/11/2024 Assessment: Good overall ROM with improving mechanics. Making steady gains increasing strength Plan: Continue PT @ 1x/wk to decrease pain, increase ROM, optimize mechanics, and improve participation in functional activities. finish out appts then D/c to I HEP. [email or web address] Not available 05/11/2024 08:23:45 Plan of Treatment Reminders Order Date Submit [...] and Address Organization Details Recorded Time 4 24285 Therapeutic Exercise (1:1) completed Casa Granado, PT [address], [place], [address], [facility] 03/26/2024 16:11:52 4 91165 Therapeutic Exercise (1:1) completed Lakisha Villarreal, HOUSING ASSISTANT PROPERTY MANAGER [address], [place], [address], [facility] 03/22/2024 14:19:44 4 50606: Manual therapy completed Lakisha Villarreal HOUSING ASSISTANT PROPERTY MANAGER [address], [place], [address], [facility] 03/22/2024 14:19:44 4 95440 Therapeutic Exercise (1:1) completed Casa Granado, PT [address], [place], [address], [facility] 03/16/2024 12:41:20 4 37089: Manual therapy completed Casa Granado, PT [address], [place], [address], [facility] 03/16/2024 12:41:20 4 42682 Therapeutic Exercise (1:1) completed Casa Granado, PT [address], [place], [address], [facility] 03/15/2024 06:31:03 4 23829: Manual therapy completed Casa Granado, PT [address], [place], [address], [facility] 03/15/2024 06:31:03 4 57363 Therapeutic Exercise (1:1) completed Casa Granado, PT [address], [place], [address], [facility] 03/12/2024 18:20:54 4 23570: Manual therapy completed Casa Granado, PT [address], [place], [address], [facility] 03/13/2024 15:27:52 4 14765 Therapeutic Exercise (1:1) completed Lakisha Villarreal, HOUSING ASSISTANT PROPERTY MANAGER [address], [place], [address], [facility] 03/05/2024 06:41:29 4 25274: Manual therapy completed Lakisha Villarreal HOUSING ASSISTANT PROPERTY MANAGER [address], [place], [address], [facility] 03/05/2024 12:30:39 4 79231 Therapeutic Exercise (1:1) completed Casa Granado, PT [address], [place], [address], [facility] 03/01/2024 15:14:27 4 63371: Manual therapy completed Casa Granado, PT [address], [place], [address], [facility] 03/01/2024 15:14:27 4 20094 Therapeutic Exercise (1:1) completed Casa Granado, PT [address], [place], [address], [facility] 02/27/2024 10:55:20 4 72795: Manual therapy completed Casa Granado PT [address], [place], [address], [facility] 02/27/2024 10:55:20 4 60686 Therapeutic Exercise (1:1) completed Casa Granado PT [address], [place], [address], [facility] 02/24/2024 10:04:16 4 10507: Manual therapy completed Casa Granado PT [address], [place], [address], [facility] 02/23/2024 14:42:13 4 32904 Therapeutic Exercise (1:1) completed Lakisha Villarreal HOUSING ASSISTANT PROPERTY MANAGER [address], [place], [address], [facility] 02/17/2024 14:52:00 4 66723: Manual therapy completed Lakisha Villarreal PTA [address], [place], [address], [facility] 02/17/2024 14:52:00 4 58127 Therapeutic Exercise (1:1) completed Lakisha Villarreal HOUSING ASSISTANT PROPERTY MANAGER [address], [place], [address], [facility] 02/16/2024 15:29:45 4 05349: Manual therapy completed Lakisha Villarreal HOUSING ASSISTANT PROPERTY MANAGER [address], [place], [address], [facility] 02/16/2024 15:29:46 4 51168 Therapeutic Exercise (1:1) completed Lakisha Villarreal HOUSING ASSISTANT PROPERTY MANAGER [address], [place], [address], [facility] 02/15/2024 08:24:38 4 27276: Manual therapy completed Lakisha Villarreal PTA [address], [place], [address], [facility] 02/15/2024 08:24:45 4 44307 Therapeutic Exercise (1:1) completed Casa Granado, PT [address], [place], [address], [facility] 02/08/2024 11:17:58 4 00888: Low complexity PT Eval completed Casa Granado PT [address], [place], [address], [facility] 02/08/2024 11:18:01 4 G8417 BMI Above Upper Parameters, F/U Documented completed Casa Granado, PT [address], [place], [address], [facility] 02/09/2024 07:15:11 4 G8427 Current Medication Documented completed Casa Granado, PT [address], [place], [address], [facility] 02/09/2024 07:15:05 4 [email or web address] INJ completed Casa Finnegan PA-C [address], [place], [address], [facility] 09/19/2023 [...] History Nothing Reported. Medical History Condition Response Coronary Artery Disease N Anxiety/Depression N Emphysema N COPD N Pacemaker N Vascular Disease N Heart Trouble N Gastrointestinal Disease N Autoimmune disease N Orthotics N Arthritis N Blood Clot N Acid Reflux (GERD) N Cancer Y Stroke N Circulation Problems N Rheumatoid Arthritis N Arrhythmia N Headaches N Fibromyalgia N Allergies/Hayfever N Breathing or lung disorders N Nerve Disorders Y Thyroid Problems N Kidney/Bladder Problems N Anemia N Heart Attack ([place]) N Cholesterol N Diabetes N Bleeding Disorder N Seizures/Epilepsy N AIDS/HIV N Congestive Heart Failure (CHF) N Asthma N Peripheral Vascular Disease N Sleep Apnea N Hepatitis N Heart Disease N Pulmonary Embolism N Hypertension N Osteoporosis N Past Encounters Encounter ID Performer Location Encounter Start Date Encounter Closed Date Diagnosis/Indication Diagnosis SNOMED-CT Code Diagnosis ICD10 Code Diagnosis Note [id number] MD GARRETT Acosta 2nd floor [address] [place] [address] 04/16/2024 09:27:32 04/30/2024 09:38:12 History of artificial joint 672223145 Z96.400 [id number] Casa Granado, PT [facility] [address] [place] [address] 04/18/2024 06:53:27 04/18/2024 08:17:14 Aftercare [id number] Z47.1 Z96.123 [id number] Cassandra Mckeon, DPT [facility] [address] [place] [address] 04/25/2024 06:56:48 04/25/2024 07:53:13 Aftercare [id number] Z47.1 Z96.260 [id number] MD GARRETT Acosta PT [address] [place] [address] 04/30/2024 07:25:36 04/30/2024 08:26:13 Aftercare [id number] Z47.1 Z96.626 [id number] Casa Granado PT [facility] [address] [place] [address] 05/11/2024 07:18:36 05/11/2024 09:32:12 Aftercare [id number] Z47.1 Z96.611 Health Concerns Section Related Observation LastModified by Organization Detai ls LastModified Time None Recorded Concern Status LastModified by Organization Details LastModified Time None Recorded Payers Encounter Date Sequence Insurance Name Policy Number Policy Silver Covered Member ID Silver Member ID Guarantor Name 05/11/2024 1 MEDICARE B-[place]: [facility] Narayan Ceballos [id number] Narayan Ceballos 05/11/2024 2 [facility]: [facility] [place] [id number] Narayan Ceballos [id number] Narayan Ceballos Notes Date Note Type Note Provider Name and Address Organization Details Recorded Time 05/11/2024 text/html Pt reports 0/10 px in R shoulder but notes L shoulder is starting to become bothersome. Has been using his total gym at home with no issues. Pt wishes to continue with PT; feels like it has been helping. Lakisha Villarreal, HOUSING ASSISTANT PROPERTY MANAGER [address], [place], [address], [facility] [place] [facility] 05/11/2024 08:24:00
[2024-06-05 09:01] LABS: Blood Urea Nitrogen 15 mg/dL (9-16); Estimated Glomerular Filt Rate > 60
== END 2024-06-05 07:22 | disposition home or self-care (01) ==
LOC: HO.LAB 07:21
PROVIDERS: PCP Internal Medicine; Visit Provider Nurse Practitioner Family
DX: N20.0 Calculus of kidney (principal); N28.1 Cyst of kidney, acquired
CPT/HCPCS: 36415; 82565; 84520

== ENCOUNTER 2024-06-14 07:53 | Outpatient (REF) | payer MEDICARE, BC, SELFPAY ==
--- NOTE | ~2024-06-14 | CT_ITS ---
CLINICAL HISTORY: N28.1 - Cyst of kidney, acquired CT ABDOMEN AND PELVIS WITH AND WITHOUT CONTRAST Comparison: None Findings: Scattered atelectasis and/or scarring in the included lungs. There is a 1.3 cm simple cortical cyst in the right kidney. 9 mm cortical hypodensity in the lower pole is too small to accurately characterize. There are multiple simple cortical cysts in the left kidney measuring up to 1.9 cm. There are additional subcentimeter cortical hypodensities that are too small to accurately characterize. There is an 8 mm hyperdense exophytic cyst. No hydronephrosis or significant perinephric edema. There are several 1-2 mm nonobstructing calculi in the right kidney. There are several 2-3 mm nonobstructing calculi in the left kidney. There are tiny nonspecific cortical calcifications in the left kidney. No acute abnormalities in the remaining solid organs. Multiple tiny hypodensities in the liver are too small to accurately characterize. No large calcified gallstone. No AAA. No bowel obstruction, pneumoperitoneum, or pneumatosis. Small diverticulum in the transverse portion of the duodenal sweep. No ascites or significant mesenteric edema. The appendix is identified. No acute appendicitis. Colonic diverticulosis. No acute diverticulitis. Prostatic calcifications. Urinary bladder unremarkable. Small fat containing bilateral inguinal hernias. No acute fracture. Moderate to moderately severe narrowing of the L4-5 and L5-S1 disc spaces. IMPRESSION: 1. Solitary right and multiple left small simple cortical cysts. No suspicious renal lesion although there are multiple subcentimeter hypodensities bilaterally, left greater than right, that are too small to accurately characterize. 8 mm hyperdense exophytic cyst in the left kidney. 2. No acute obstructive uropathy. Nonobstructing bilateral nephrolithiasis. 3. No obstructive or acute inflammatory changes in the gastrointestinal tract. 4. Diverticulosis coli. This document has been electronically signed by: Thania Tenorio DO on 06/16/2024 11:57:50
--- OUTSIDE RECORDS SUMMARY | 2024-06-14 07:57 | XMS_ITS | Continuity of Care Document ---
Author Organization [facility], GARRETT Sarmiento PT Address [address] [place] [address] Care Team Providers Care Clinical Physician Assistant Name Role Phone FABY DURHAM Referring Provider [phone] FABY DURHAM Primary Care Provider Assessment Encounter [...] out appts then D/c to I HEP. [email or web address] Not available 05/25/2024 08:14:26 Plan of Treatment [...] and Address Organization Details Recorded Time 4 19209 Therapeutic Exercise (1:1) completed Casa Granado, PT [address], [place], [address], [facility] [place] [facility] 03/26/2024 16:11:52 4 74764 Therapeutic Exercise (1:1) completed Lakisha Villarreal, RADIO BROADCASTER [address], [place], [address], [facility] [place] [facility] 03/22/2024 14:19:44 4 72744: Manual therapy completed Lakisha Villarreal, RADIO BROADCASTER [address], [place], [address], [facility] [place] [facility] 03/22/2024 14:19:44 4 79532 Therapeutic Exercise (1:1) completed Casa Granado, PT [address], [place], [address], [facility] [place] [facility] 03/16/2024 12:41:20 4 04348: Manual therapy completed Casa Granado, PT [address], [place], [address], [facility] [place] [facility] 03/16/2024 12:41:20 4 18319 Therapeutic Exercise (1:1) completed Casa Granado, PT [address], [place], [address], [facility] [place] [facility] 03/15/2024 06:31:03 4 03910: Manual therapy completed Casa Granado, PT [address], [place], [address], [facility] [place] [facility] 03/15/2024 06:31:03 4 45022 Therapeutic Exercise (1:1) completed Casa Granado, PT [address], [place], [address], [facility] [place] [facility] 03/12/2024 18:20:54 4 84140: Manual therapy completed Casa Granado, PT [address], [place], [address], [facility] [place] [facility] 03/13/2024 15:27:52 4 36301 Therapeutic Exercise (1:1) completed Lakisha Villarreal, RADIO BROADCASTER [address], [place], [address], [facility] [place] [facility] 03/05/2024 06:41:29 4 99423: Manual therapy completed Lakisha Villarreal PTA [address], [place], [address], [facility] [place] [facility] 03/05/2024 12:30:39 4 71769 Therapeutic Exercise (1:1) completed Casa Granado, PT [address], [place], [address], [facility] [place] [facility] 03/01/2024 15:14:27 4 09465: Manual therapy completed Casa Granado, PT [address], [place], [address], [facility] [place] [facility] 03/01/2024 15:14:27 4 82188 Therapeutic Exercise (1:1) completed Casa Granado, PT [address], [place], [address], [facility] [place] [facility] 02/27/2024 10:55:20 4 32878: Manual therapy completed Casa Granado, PT [address], [place], [address], [facility] [place] [facility] 02/27/2024 10:55:20 4 31231 Therapeutic Exercise (1:1) completed Casa Granado, PT [address], [place], [address], [facility] [place] [facility] 02/24/2024 10:04:16 4 87153: Manual therapy completed Casa Granado, PT [address], [place], [address], [facility] [place] [facility] 02/23/2024 14:42:13 4 26477 Therapeutic Exercise (1:1) completed Lakisha Villarreal PTA [address], [place], [address], [facility] [place] [facility] 02/17/2024 14:52:00 4 84216: Manual therapy completed Lakisha Villarreal RADIO BROADCASTER [address], [place], [address], [facility] [place] [facility] 02/17/2024 14:52:00 4 25033 Therapeutic Exercise (1:1) completed Lakisha Villarreal RADIO BROADCASTER [address], [place], [address], [facility] [place] [facility] 02/16/2024 15:29:45 4 76447: Manual therapy completed Lakisha Villarreal RADIO BROADCASTER [address], [place], [address], [facility] [place] [facility] 02/16/2024 15:29:46 4 36114 Therapeutic Exercise (1:1) completed Lakisha Villarreal RADIO BROADCASTER [address], [place], [address], [facility] [place] [facility] 02/15/2024 08:24:38 4 17562: Manual therapy completed Lakisha Villarreal PTA [address], [place], [address], [facility] [place] [facility] 02/15/2024 08:24:45 4 83864 Therapeutic Exercise (1:1) completed Casa Granado, PT [address], [place], [address], [facility] [place] [facility] 02/08/2024 11:17:58 4 49090: Low complexity PT Eval completed Casa Granado, PT [address], [place], [address], [facility] [place] [facility] 02/08/2024 11:18:01 4 G8417 BMI Above Upper Parameters, F/U Documented completed Casa Granado, PT [address], [place], [address], [facility] [place] [facility] 02/09/2024 07:15:11 4 G8427 Current Medication Documented completed Casa Granado, PT [address], [place], [address], [facility] [place] [facility] 02/09/2024 07:15:05 4 Jesus INJ completed Casa Finnegan PA-C [address], [place], [address], [facility] [place] [facility] 09/19/2023 13:58:06 Imaging Results None recorded. [...] Kidney/Bladder Problems N Anemia N Heart Attack ([place]) N Cholesterol N Diabetes N Bleeding Disorder N Seizures/Epilepsy N AIDS/HIV N Congestive Heart Failure (CHF) N Asthma N Peripheral Vascular Disease N Sleep Apnea N Hepatitis N Heart Disease N Pulmonary Embolism N Hypertension N Osteoporosis N Past Encounters Encounter ID Performer Location Encounter Start Date Encounter Closed Date Diagnosis/Indication Diagnosis SNOMED-CT Code Diagnosis ICD10 Code Diagnosis Note [id number] Cassandra Mckeon DPT [facility] [address] [place] [address] 04/25/2024 06:56:48 04/25/2024 07:53:13 Aftercare [id number] Z47.1 Z96.108 [id number] MD GARRETT Acosta PT [address] [place] [address] 04/30/2024 07:25:36 04/30/2024 08:26:13 Aftercare [id number] Z47.1 Z96.008 [id number] Casa Granado PT [facility] [address] [place] [address] 05/11/2024 07:18:36 05/11/2024 09:32:12 Aftercare [id number] Z47.1 Z96.628 [id number] Casa Granado, PT [facility] [address] [place] [address] 05/18/2024 07:23:56 05/18/2024 10:03:09 Aftercare [id number] Z47.1 Z96.233 [id number] Casa Granado, PT [facility] [address] [place] [address] 05/25/2024 07:13:58 05/25/2024 08:21:42 Aftercare [id number] Z47.1 Z96.611 Health Concerns Section Related Observation LastModified by Organization Detai ls LastModified Time None Recorded Concern Status LastModified by Organization Details LastModified Time None Recorded Payers Encounter Date Sequence Insurance Name Policy Number Policy Silver Covered Member ID Silver Member ID Guarantor Name 05/25/2024 1 MEDICARE B-[place]: [facility] Narayan Ceballos [id number] Narayan Ceballos 05/25/2024 2 [facility]: [facility] [place] [id number] Narayan Ceballos [id number] Narayan Ceballos Notes Date Note Type Note Provider Name and Address Organization Details Recorded Time 05/25/2024 text/html Pt reports 0/10 px in R shoulder. Has been using his total gym at home with no issues. Reports no new issues with R shoulder but has some soreness in L shoulder. Lakisha Villarreal, RADIO BROADCASTER [address], [place], [address], [facility] [place] [facility] 05/25/2024 08:14:43
--- OUTSIDE RECORDS SUMMARY | 2024-06-14 07:58 | XMS_ITS | Continuity of Care Document ---
Author Organization [facility], GARRETT Sarmiento PT Address [address] [place] [address] Care Team Providers Care Fill Technician Name Role Phone FABY DURHAM Referring Provider [phone] FABY DURHAM Primary Care Provider [phone] Assessment Encounter Date Assessment Date Assessment LastModified by Organization Details LastModified Time 06/01/2024 06/01/2024 Assessment: Great overall ROM with improving mechanics. Making steady gains increasing strength. Improving active mechanics Plan: D/c to I HEP. [email or web address] Not available 06/01/2024 08:12:54 Plan of Treatment [...] and Address Organization Details Recorded Time 4 38912 Therapeutic Exercise (1:1) completed Casa Granado, PT [address], [place], [address], [facility] 03/26/2024 16:11:52 4 56651 Therapeutic Exercise (1:1) completed Lakisha Villarreal PTA [address], [place], [address], [facility] 03/22/2024 14:19:44 4 61475: Manual therapy completed Lakisha Villarreal, BRICKMASON SUPERVISOR [address], [place], [address], [facility] 03/22/2024 14:19:44 4 89772 Therapeutic Exercise (1:1) completed Casa Granado, PT [address], [place], [address], [facility] 03/16/2024 12:41:20 4 36386: Manual therapy completed Casa Granado, PT [address], [place], [address], [facility] 03/16/2024 12:41:20 4 84907 Therapeutic Exercise (1:1) completed Casa Granado PT [address], [place], [address], [facility] 03/15/2024 06:31:03 4 79760: Manual therapy completed Casa Granado PT [address], [place], [address], [facility] 03/15/2024 06:31:03 4 50768 Therapeutic Exercise (1:1) completed Casa Granado PT [address], [place], [address], [facility] 03/12/2024 18:20:54 4 33199: Manual therapy completed Casa Granado PT [address], [place], [address], [facility] 03/13/2024 15:27:52 4 75588 Therapeutic Exercise (1:1) completed Lakisha Villarreal BRICKMASON SUPERVISOR [address], [place], [address], [facility] 03/05/2024 06:41:29 4 71167: Manual therapy completed Lakisha Villarreal BRICKMASON SUPERVISOR [address], [place], [address], [facility] 03/05/2024 12:30:39 4 55175 Therapeutic Exercise (1:1) completed Casa Granado, PT [address], [place], [address], [facility] 03/01/2024 15:14:27 4 32348: Manual therapy completed Casa Granado, PT [address], [place], [address], [facility] 03/01/2024 15:14:27 4 17063 Therapeutic Exercise (1:1) completed Casa Granado, PT [address], [place], [address], [facility] 02/27/2024 10:55:20 4 35789: Manual therapy completed Casa Granado, PT [address], [place], [address], [facility] 02/27/2024 10:55:20 4 06936 Therapeutic Exercise (1:1) completed Casa Granado, PT [address], [place], [address], [facility] 02/24/2024 10:04:16 4 52191: Manual therapy completed Casa Granado, PT [address], [place], [address], [facility] 02/23/2024 14:42:13 4 37710 Therapeutic Exercise (1:1) completed Lakisha Villarreal, BRICKMASON SUPERVISOR [address], [place], [address], [facility] 02/17/2024 14:52:00 4 07135: Manual therapy completed Lakisha Villarreal BRICKMASON SUPERVISOR [address], [place], [address], [facility] 02/17/2024 14:52:00 4 07211 Therapeutic Exercise (1:1) completed Lakisha Villarreal, BRICKMASON SUPERVISOR [address], [place], [address], [facility] 02/16/2024 15:29:45 4 19676: Manual therapy completed Lakisha Villarreal BRICKMASON SUPERVISOR [address], [place], [address], [facility] 02/16/2024 15:29:46 4 14587 Therapeutic Exercise (1:1) completed Lakisha Villarreal BRICKMASON SUPERVISOR [address], [place], [address], [facility] 02/15/2024 08:24:38 4 77297: Manual therapy completed Lakisha Villarreal BRICKMASON SUPERVISOR [address], [place], [address], [facility] 02/15/2024 08:24:45 4 80061 Therapeutic Exercise (1:1) completed Casa Granado PT [address], [place], [address], [facility] 02/08/2024 11:17:58 4 44758: Low complexity PT Eval completed Casa Granado PT [address], [place], [address], [facility] 02/08/2024 11:18:01 4 G8417 BMI Above Upper Parameters, F/U Documented completed Casa Granado PT [address], [place], [address], [facility] 02/09/2024 07:15:11 4 G8427 Current Medication Documented completed Casa Granado PT [address], [place], [address], [facility] 02/09/2024 07:15:05 4 JZShoulder INJ completed Casa Finnegan PA-C [address] [facility], [place], [address], [facility] 09/19/2023 13:58:06 Imaging Results None recorded. [...] Disease N Heart Trouble N Heart Attack ([place]) N Gastrointestinal Disease N Cholesterol N Diabetes [...] SNOMED-CT Code Diagnosis ICD10 Code Diagnosis Note [id number] Casa Granado PT [facility] [address] [place] [address] 05/11/2024 07:18:36 05/11/2024 09:32:12 Aftercare [id number] Z47.1 Z96.620 [id number] Casa Granado PT [facility] [address] [place] [address] 05/18/2024 07:23:56 05/18/2024 10:03:09 Aftercare [id number] Z47.1 Z96.990 [id number] Casa Granado PT [facility] [address] [place] [address] 05/25/2024 07:13:58 05/25/2024 08:21:42 Aftercare [id number] Z47.1 Z96.085 [id number] Cassandra Mckeon, DPT [facility] [address] [place] [address] 06/01/2024 07:22:54 06/01/2024 08:13:34 Aftercare [id number] Z47.1 Z96.611 Health Concerns Section Related Observation LastModified by Organization Detai ls LastModified Time None Recorded Concern Status LastModified by Organization Details LastModified Time None Recorded Payers Encounter Date Sequence Insurance Name Policy Number Policy Silver Covered Member ID Silver Member ID Guarantor Name 06/01/2024 1 [place] [email or web address] Narayan Ceballos [id number] Narayan Ceballos 06/01/2024 2 [facility] [id number] Narayan Ceballos [id number] Narayan Ceballos Notes Date Note Type Note Provider Name and Address Organization Details Recorded Time 06/01/2024 text/html Pt reports 0/10 px in R shoulder. Has been using his total gym at home with no issues. Pt reports he is happy with his progress Lakisha Villarreal, BRICKMASON SUPERVISOR [address], [place], [address], [facility] 06/01/2024 08:13:11
--- OUTSIDE RECORDS SUMMARY | 2024-06-14 07:58 | XMS_ITS | Data Portability ---
Author Organization [facility] Alexander Torres [facility], [facility] Address [address] [place] [address] Care Team Providers Care Gold Miner Name Role Phone FABY DURHAM Referring Provider [...] out appts then D/c to I HEP. [email or web address] Not available 04/26/2024 18:30:36 05/11/2024 05/11/2024 Assessment: Good overall ROM with improving mechanics. Making steady gains increasing strength Plan: Continue PT @ 1x/wk to decrease pain, increase ROM, optimize mechanics, and improve participation in functional activities. finish out appts then D/c to I HEP. [email or web address] Not available 05/11/2024 08:23:45 05/18/2024 05/18/2024 Assessment: Good overall ROM with improving mechanics. Making steady gains increasing strength. good james to wall stabilization exercises. Plan: Continue PT @ 1x/wk to decrease pain, increase ROM, optimize mechanics, and improve participation in functional activities. finish out appts then D/c to I HEP. [email or web address] Not available 05/18/2024 11:34:36 05/25/2024 05/25/2024 Assessment: Good overall ROM with improving mechanics. Making steady gains increasing strength. good james to wall stabilization exercises. mild UT tightness Plan: Continue PT @ 1x/wk to decrease pain, increase ROM, optimize mechanics, and improve participation in functional activities. finish out appts then D/c to I HEP. Not available 05/25/2024 08:14:26 06/01/2024 06/01/2024 Assessment: Great overall ROM with improving mechanics. Making steady gains increasing strength. Improving active mechanics Plan: D/c to I HEP. [email or web address] Not available 06/01/2024 08:12:54 Plan of Treatment [...] and Address Organization Details Recorded Time 4 64133 Therapeutic Exercise (1:1) completed Casa Granado PT [address], [place], [address], [facility] 03/26/2024 16:11:52 4 97006 Therapeutic Exercise (1:1) completed Lakisha Villarreal PTA [address], [place], [address], [facility] 03/22/2024 14:19:44 4 39005: Manual therapy completed Lakisha Villarreal PTA [address], [place], [address], [facility] 03/22/2024 14:19:44 4 46169 Therapeutic Exercise (1:1) completed Casa Granado PT [address], [place], [address], [facility] 03/16/2024 12:41:20 4 45871: Manual therapy completed Casa Granado PT [address], [place], [address], [facility] 03/16/2024 12:41:20 4 94422 Therapeutic Exercise (1:1) completed Casa Granado, PT [address], [place], [address], [facility] 03/15/2024 06:31:03 4 87291: Manual therapy completed Casa Granado, PT [address], [place], [address], [facility] 03/15/2024 06:31:03 4 56200 Therapeutic Exercise (1:1) completed Casa Granado, PT [address], [place], [address], [facility] 03/12/2024 18:20:54 4 21231: Manual therapy completed Casa Granado, PT [address], [place], [address], [facility] 03/13/2024 15:27:52 4 36016 Therapeutic Exercise (1:1) completed Lakisha Villarreal, RN L AND D [address], [place], [address], [facility] 03/05/2024 06:41:29 4 60402: Manual therapy completed Lakisha Villarreal, RN L AND D [address], [place], [address], [facility] 03/05/2024 12:30:39 4 53908 Therapeutic Exercise (1:1) completed Casa Granado, PT [address], [place], [address], [facility] 03/01/2024 15:14:27 4 52543: Manual therapy completed Casa Granado, PT [address], [place], [address], [facility] 03/01/2024 15:14:27 4 18195 Therapeutic Exercise (1:1) completed Casa Granado, PT [address], [place], [address], [facility] 02/27/2024 10:55:20 4 98810: Manual therapy completed Casa Granado PT [address], [place], [address], [facility] 02/27/2024 10:55:20 4 41496 Therapeutic Exercise (1:1) completed Casa Granado, PT [address], [place], [address], [facility] 02/24/2024 10:04:16 4 93527: Manual therapy completed Casa Granado PT [address], [place], [address], [facility] 02/23/2024 14:42:13 4 96593 Therapeutic Exercise (1:1) completed Lakisha Villarreal PTA [address], [place], [address], [facility] 02/17/2024 14:52:00 4 36620: Manual therapy completed Lakisha Villarreal PTA [address], [place], [address], [facility] 02/17/2024 14:52:00 4 05891 Therapeutic Exercise (1:1) completed Lakisha Villarreal PTA [address], [place], [address], [facility] 02/16/2024 15:29:45 4 80868: Manual therapy completed Lakisha Villarreal PTA [address], [place], [address], [facility] 02/16/2024 15:29:46 4 04232 Therapeutic Exercise (1:1) completed Lakisha Villarreal PTA [address], [place], [address], [facility] 02/15/2024 08:24:38 4 15631: Manual therapy completed Lakisha Villarreal, RN L AND D [address], [place], [address], [facility] 02/15/2024 08:24:45 4 72043 Therapeutic Exercise (1:1) completed Casa Granado, PT [address], [place], [address], [facility] 02/08/2024 11:17:58 4 53800: Low complexity PT Eval completed Casa Granado, PT [address], [place], [address], [facility] 02/08/2024 11:18:01 4 G8417 BMI Above Upper Parameters, F/U Documented completed Casa Granado, PT [address], [place], [address], [facility] 02/09/2024 07:15:11 4 G8427 Current Medication Documented completed Casa Granado, PT [address], [place], [address], [facility] 02/09/2024 07:15:05 4 JZShoulder INJ completed Casa Finnegan PA-C [address], [place], [address], [facility] 09/19/2023 13:58:06 Imaging Results None [...] Trouble N Gastrointestinal Disease N Heart Attack ([place]) N Cholesterol N Diabetes N Autoimmune disease [...] SNOMED-CT Code Diagnosis ICD10 Code Diagnosis Note [id number] Casa Finnegan PA-C [address] [place] [address] 09/19/2023 13:05:45 10/06/2023 09:09:09 Pain of right shoulder joint [id number] 4801655 M25.511 Adhesive c apsulitis of right shoulder [id number] 32759 M75.01 Osteoarthr itis of right glenohumeral joint 8728461040 567578 M19.568 [id number] VARUN Vargas 2nd floor [address] [place] [address] 11/08/2023 09:19:30 12/07/2023 18:36:06 Pain of right shoulder joint 6099991509 3293660 M25.511 Osteoarthr itis of right glenohumeral joint 1842504641 608740 M19.894 [id number] MD Torsten Acosta 2nd floor [address] [place] [address] 12/05/2023 08:02:49 12/28/2023 11:47:17 Osteoarthritis of joint of right shoulder region 2323963058 63475 M19.916 [id number] MD Torsten Acosta 2nd floor [address] [place] [address] 12/26/2023 14:19:12 01/17/2024 14:48:29 Osteoarthritis of joint of right shoulder region 5958439085 15649 M19.057 [id number] MD Kenn Acosta [facility] [place] [place] [address] 01/13/2024 11:26:01 02/08/2024 09:12:03 History of reverse prosthetic total arthroplasty of right shoulder 1771720018 [id number] Z96.109 [id number] Maria C Gore MD [facility] [address] [place] [address] 02/09/2024 06:44:56 02/09/2024 07:27:56 Aftercare [id number] Z47.1 Z96.633 [id number] Chon Nielsen PA-C [facility] [address] [place] [address] 02/15/2024 15:41:43 03/13/2024 09:48:38 Postoperative visit [id number] Z48.89 [id number] Casa Granado, PT [facility] [address] [place] [address] 02/15/2024 07:55:47 02/15/2024 08:32:10 Aftercare [id number] Z47.1 Z96.651 [id number] Casa Granado, PT [facility] [address] [place] [id number] 02/17/2024 08:57:12 02/17/2024 10:14:24 Aftercare [id number] Z47.1 Z96.220 [id number] Casa Granado, PT [facility] [address] [place] [id number] 02/20/2024 07:22:56 02/20/2024 09:00:09 Aftercare [id number] Z47.1 Z96.629 [id number] Casa Granado, PT [facility] [address] [place] [address] 02/24/2024 07:12:27 02/24/2024 10:01:57 Aftercare [id number] Z47.1 Z96.462 [id number] Casa Granado, PT [facility] [address] [place] [address] 02/28/2024 06:42:17 02/28/2024 07:47:47 Aftercare [id number] Z47.1 Z96.656 [id number] Casa Granado, PT [facility] [address] [place] [address] 03/02/2024 06:37:32 03/02/2024 07:52:37 Aftercare [id number] Z47.1 Z96.300 [id number] Casa Granado, PT [facility] [address] [place] [id number] 03/05/2024 09:58:23 03/05/2024 10:31:30 Aftercare [id number] Z47.1 Z96.090 [id number] Casa Granado, PT [facility] [address] [place] [address] 03/13/2024 07:51:50 03/13/2024 08:16:36 Aftercare [id number] Z47.1 Z96.438 [id number] Maria C Gore MD [facility] [address] [place] [address] 03/15/2024 07:49:14 03/15/2024 09:07:32 Aftercare [id number] Z47.1 Z96.192 [id number] Casa Granado, PT [facility] [address] [place] [address] 03/20/2024 10:52:33 03/20/2024 11:59:43 Aftercare [id number] Z47.1 Z96.094 [id number] Casa Granado, PT [facility] [address] [place] [id number] 03/23/2024 07:15:14 03/23/2024 08:39:38 Aftercare [id number] Z47.1 Z96.141 [id number] Casa Granado, PT [facility] [address] [place] [id number] 03/27/2024 08:25:53 03/27/2024 08:55:55 Aftercare [id number] Z47.1 Z96.839 [id number] Casa Granado, PT [facility] [address] [place] [id number] 03/30/2024 07:56:20 03/30/2024 09:56:10 Aftercare [id number] Z47.1 Z96.924 [id number] Casa Granado, PT [facility] [address] [place] [id number] 04/03/2024 07:51:52 04/03/2024 09:41:36 Aftercare [id number] Z47.1 Z96.038 [id number] Casa Granado, PT [facility] [address] [place] [address] 04/06/2024 07:22:04 04/06/2024 09:03:18 Aftercare [id number] Z47.1 Z96.390 [id number] Cassandra Mckeon, DPT [facility] [address] [place] [id number] 04/09/2024 07:53:28 04/09/2024 08:26:29 Aftercare [id number] Z47.1 Z96.939 [id number] MD [facility] Acosta 2nd floor [address] [place] [address] 04/16/2024 09:27:32 04/30/2024 09:38:12 History of artificial joint [id number] Z96.762 [id number] Casa Granado, PT [facility] [address] [place] [id number] 04/18/2024 06:53:27 04/18/2024 08:17:14 Aftercare [id number] Z47.1 Z96.135 [id number] Cassandra Mckeon, DPT [facility] [address] [place] [id number] 04/25/2024 06:56:48 04/25/2024 07:53:13 Aftercare [id number] Z47.1 Z96.442 [id number] MD [facility] Acosta PT [address] [place] [id number] 04/30/2024 07:25:36 04/30/2024 08:26:13 Aftercare [id number] Z47.1 Z96.438 [id number] Casa Granado, PT [facility] [address] [place] [address] 05/11/2024 07:18:36 05/11/2024 09:32:12 Aftercare [id number] Z47.1 Z96.376 [id number] Casa Granado, PT [facility] [address] [place] [address] 05/18/2024 07:23:56 05/18/2024 10:03:09 Aftercare [id number] Z47.1 Z96.160 [id number] Casa Granado, PT [facility] [address] [place] [id number] 05/25/2024 07:13:58 05/25/2024 08:21:42 Aftercare [id number] Z47.1 Z96.450 [id number] Cassandra Mckeon, DPT [facility] [address] [place] [id number] 06/01/2024 07:22:54 06/01/2024 08:13:34 Aftercare [id number] Z47.1 Z96.611 Health Concerns Section Related Observation LastModified by Organization Detai ls LastModified Time None Recorded Concern Status LastModified by Organization Details LastModified Time None Recorded Advance Directives Directive None Recorded Payers Encounter Date Sequence Insurance Name Policy Number Policy Silver Covered Member ID Silver Member ID Guarantor Name 04/30/2024 1 [place] [employer] Narayan Ceballos [id number] Narayan Lin 04/30/2024 2 [place] [facility] [employer] [facility] [id number] Narayan Ceballos [id number] Narayan Whitneyba 05/11/2024 1 [place] [employer] [employer] Narayan Whitneyba [id number] Narayan Whitneyba 05/11/2024 2 [place] [facility] [id number] Narayan Ceballos [id number] Narayan Whitneyba 05/18/2024 1 [place] [employer] Narayan Whitneyba [id number] Narayan Lin 05/18/2024 2 [place] [facility] [id number] Narayan Newby Lin [id number] Narayan Lin 05/25/2024 1 [place] [employer] Narayan Newby Lin [id number] Narayan Lin 05/25/2024 2 [place] [facility] [id number] Narayan Newby Lin [id number] Narayan Lin 06/01/2024 1 [place] [employer] Narayan Whitneyba [id number] Narayan Lin 06/01/2024 2 [place] [facility] [id number] Narayan Newby Lin [id number] Narayan Ceballos Notes Date Note Type Note Provider Name and Address Organization Details Recorded Time 04/30/2024 text/html Pain 0/10 at rest. No new complaints at this time. Has been using his total gym at home with no issues. Pt wishes to continue with PT; feels like it has been helping. Cassandra Mckeon, DPT [address], [place], [address], [facility] 04/30/2024 10:06:04 05/11/2024 text/html Pt reports 0/10 px in R shoulder but notes L shoulder is starting to become bothersome. Has been using his total gym at home with no issues. Pt wishes to continue with PT; feels like it has been helping. Lakisha Villarreal RN L AND D [address], [place], [address], [facility] 05/11/2024 08:24:00 05/18/2024 text/html Pt reports 0/10 px in R shoulder. Has been using his total gym at home with no issues. Some soreness from shoveling this week Lakisha Villarreal RN L AND D [address], [place], [address], [facility] 05/18/2024 11:34:52 05/25/2024 text/html Pt reports 0/10 px in R shoulder. Has been using his total gym at home with no issues. Reports no new issues with R shoulder but has some soreness in L shoulder. Lakisha Villarreal, RN L AND D [address], [place], [address], [facility] 05/25/2024 08:14:43 06/01/2024 text/html Pt reports 0/10 px in R shoulder. Has been using his total gym at home with no issues. Pt reports he is happy with his progress Lakisha Villarreal PTA [address], [place], [address], [facility] 06/01/2024 08:13:11
--- OUTSIDE RECORDS SUMMARY | 2024-06-14 07:58 | XMS_ITS | Continuity of Care Document ---
Author Organization [facility], GARRETT Sarmiento PT Address [address] [place] [address] Care Team Providers Care Side Seam Tender Name Role Phone FABY DURHAM Referring Provider FABY DURHAM Primary Care Provider [phone] Assessment Encounter Date Assessment Date Assessment LastModified by Organization Details LastModified Time 05/18/2024 05/18/2024 Assessment: Good overall ROM with improving mechanics. Making steady gains increasing strength. good james to wall stabilization exercises. Plan: Continue PT @ 1x/wk to decrease pain, increase ROM, optimize mechanics, and improve participation in functional activities. finish out appts then D/c to [facility]. [email or web address] Not available 05/18/2024 11:34:36 Plan of Treatment [...] and Address Organization Details Recorded Time 4 36363 Therapeutic Exercise (1:1) completed Casa Granado, PT [address], [place], [address], [facility] 03/26/2024 16:11:52 4 40028 Therapeutic Exercise (1:1) completed Lakisha Villarreal, OIL DISPATCHER [address], [place], [address], [facility] 03/22/2024 14:19:44 4 81948: Manual therapy completed Lakisha Villarreal OIL DISPATCHER [address], [place], [address], [facility] 03/22/2024 14:19:44 4 38329 Therapeutic Exercise (1:1) completed Casa Granado, PT [address], [place], [address], [facility] 03/16/2024 12:41:20 4 19474: Manual therapy completed Casa Granado, PT [address], [place], [address], [facility] 03/16/2024 12:41:20 4 50269 Therapeutic Exercise (1:1) completed Casa Granado, PT [address], [place], [address], [facility] 03/15/2024 06:31:03 4 16949: Manual therapy completed Casa Granado, PT [address], [place], [address], [facility] 03/15/2024 06:31:03 4 01897 Therapeutic Exercise (1:1) completed Casa Granado, PT [address], [place], [address], [facility] 03/12/2024 18:20:54 4 81349: Manual therapy completed Casa Granado, PT [address], [place], [address], [facility] 03/13/2024 15:27:52 4 59223 Therapeutic Exercise (1:1) completed Lakisha Villarreal, OIL DISPATCHER [address], [place], [address], [facility] 03/05/2024 06:41:29 4 44551: Manual therapy completed Lakisha Villarreal, OIL DISPATCHER [address], [place], [address], [facility] 03/05/2024 12:30:39 4 73684 Therapeutic Exercise (1:1) completed Casa Granado, PT [address], [place], [address], [facility] 03/01/2024 15:14:27 4 99157: Manual therapy completed Casa Granado, PT [address], [place], [address], [facility] 03/01/2024 15:14:27 4 71304 Therapeutic Exercise (1:1) completed Casa Granado PT [address], [place], [address], [facility] 02/27/2024 10:55:20 4 05611: Manual therapy completed Casa Granado PT [address], [place], [address], [facility] 02/27/2024 10:55:20 4 68433 Therapeutic Exercise (1:1) completed Casa Granado PT [address], [place], [address], [facility] 02/24/2024 10:04:16 4 46766: Manual therapy completed Casa Granado PT [address], [place], [address], [facility] 02/23/2024 14:42:13 4 37854 Therapeutic Exercise (1:1) completed Lakisha Villarreal PTA [address], [place], [address], [facility] 02/17/2024 14:52:00 4 05077: Manual therapy completed Lakisha Villarreal PTA [address], [place], [address], [facility] 02/17/2024 14:52:00 4 37308 Therapeutic Exercise (1:1) completed Lakisha Villarreal OIL DISPATCHER [address], [place], [address], [facility] 02/16/2024 15:29:45 4 80276: Manual therapy completed Lakisha Villarreal OIL DISPATCHER [address], [place], [address], [facility] 02/16/2024 15:29:46 4 20335 Therapeutic Exercise (1:1) completed Lakisha Villarreal OIL DISPATCHER [address], [place], [address], [facility] 02/15/2024 08:24:38 4 53213: Manual therapy completed Lakisha Villarreal OIL DISPATCHER [address], [place], [address], [facility] 02/15/2024 08:24:45 4 76081 Therapeutic Exercise (1:1) completed Casa Granado, PT [address], [place], [address], [facility] 02/08/2024 11:17:58 4 44432: Low complexity PT Eval completed Casa Granado, PT [address], [place], [address], [facility] 02/08/2024 11:18:01 4 G8417 BMI Above Upper Parameters, F/U Documented completed Caas Granado, PT [address], [place], [address], [facility] 02/09/2024 07:15:11 4 G8427 Current Medication Documented completed Casa Granado, PT [address], [place], [address], [facility] 02/09/2024 07:15:05 4 JZShoulder INJ completed Casa Finnegan PA-C [address], [place], [address], [facility] 09/19/2023 13:58:06 [...] Disease N Heart Trouble N Heart Attack (IN) N Gastrointestinal Disease N Cholesterol N Diabetes [...] SNOMED-CT Code Diagnosis ICD10 Code Diagnosis Note [id number] Casa Granado, PT [facility] [address] [place] [address] 04/18/2024 06:53:27 04/18/2024 08:17:14 Aftercare [id number] Z47.1 Z96.123 [id number] Cassandra Mckeon DPT [facility] [address] [place] [address] 04/25/2024 06:56:48 04/25/2024 07:53:13 Aftercare [id number] Z47.1 Z96.610 [id number] MD [facility] Ac[facility] [address] [place] [address] 04/30/2024 07:25:36 04/30/2024 08:26:13 Aftercare [id number] Z47.1 Z96.628 [id number] Casa Granado, PT [facility] [address] [place] [address] 05/11/2024 07:18:36 05/11/2024 09:32:12 Aftercare [id number] Z47.1 Z96.307 [id number] Casa Granado, PT [facility] [address] [place] [address] 05/18/2024 07:23:56 05/18/2024 10:03:09 Aftercare [id number] Z47.1 Z96.611 Health Concerns Section Related Observation LastModified by Organization Detai ls LastModified Time None Recorded Concern Status LastModified by Organization Details LastModified Time None Recorded Payers Encounter Date Sequence Insurance Name Policy Number Policy Silver Covered Member ID Silver Member ID Guarantor Name 05/18/2024 1 MEDICARE B-CT: [facility] Narayan Ceballos [id number] Narayan Ceballos 05/18/2024 2 [facility]: [facility] [place] [id number] Narayan Ceballos [id number] Narayan Ceballos Notes Date Note Type Note Provider Name and Address Organization Details Recorded Time 05/18/2024 text/html Pt reports 0/10 px in R shoulder. Has been using his total gym at home with no issues. Some soreness from shoveling this week Lakisha Villarreal, OIL DISPATCHER [address], [place], [address], [facility] 05/18/2024 11:34:52
--- OUTSIDE RECORDS SUMMARY | 2024-06-14 07:58 | XMS_ITS | Clinical Summary ---
Author Organization [facility] [address] [place] [address] [place] [address] Phone Care Team Providers Care Handle Machine Operator Name Role Phone Marky Chacko MD Primary Care Provider [phone] Allergies No known active allergies Medications multivit-minera ls/folic acid (CENTRUM ADULTS ORAL) 1 TABLET DAILY 8 Active oxyCODONE (ROXICODONE) 5 mg immediate release tablet 3 Active ibuprofen (ADVIL,MOTRIN) 600 mg tablet Take 1 tablet (600 mg total) by mouth. 3 Active acetaminophen (TYLENOL) 500 mg tablet Take 1 tablet (500 mg total) by mouth. 3 Active pregabalin (LYRICA) 225 mg capsule Take 1 capsule (225 mg total) by mouth. Active pyridoxine (B-6) 100 mg tablet Take 1 tablet (100 mg total) by mouth. 9 Active simvastatin (ZOCOR) 20 mg tablet Take 1 tablet (20 mg total) by mouth. 3 Active atorvastatin (LIPITOR) 20 mg tablet Take 1 Tablet by mouth daily for 360 days. 4 10/21/19 25 Active albuterol HFA (PROVENTIL HFA;VENTOLIN HFA) 108 [...] (one) time each day. 90 tablet 1 Active Active Problems Problem Noted Date Diagnosed Date [...] (06/16/2023): Received a DIFFICULT AIRWAY REPORT from [facility] dated 11/15/2015. Patient was undergoing a surgical procedure and they had difficulty performing endotracheal intubation. A copy of this form will be scanned into the patient's EMR. Hyperparathyroidism 02/24/2007 Overview (06/16/2023): Parathyroidectomy 2000 Mixed hyperlipidemia 02/24/2007 Umbilical hernia 02/24/2007 Overview (06/16/2023): Repair 2002 Immunizations Name Administration Dates Next Due Influenza [...] COMMENT: Received a DIFFICULT AIRWAY REPORT from [facility] dated 11/15/2015. Patient was undergoing a [...] Upcoming Encounters Date Type Department Care Team ([facility] st Contact Info) Description 08/13/2024 8:45 AM EDT Office Visit Adult Medicine [address] [place] [address] Marky Chacko MD [address] [place] [address] Health Maintenance Due Date Last Done Comments [...] us Historical Provider LAB BLOOD ORDERABLES Daysi l Result * CT LUNG SCREENING LOW DOSE (08/16/2023 1:32 PM EDT) Anatomical Region Laterality Modality Computed Tomogra phy 08/16/2023 7:21 AM EDT Narrative 08/16/2023 1:32 PM EDT [facility] Diagnostic Imaging Department [address] [place] [address] Patient: ??GRETTA HAYES ?/Age/Sex: 1955 - 67 - M Unit#: ??[id number] ? Location/Status: ??SPDICATLS/REG CLI ? Mnemonic/Ordering Site: [...] Procedure Note Ben Houser MD - 11/28/2023 [facility] Diagnostic Imaging Department [address] [place] [address] Patient: LINGRETTA Keyonna /Age/Sex: 1955 - 67 - M Unit#: [id number] Location/Status: [facility] Mnemonic/Ordering Site: [facility] Ordering Physician: BRIAN LOPEZ MD CT Lung Screening Low Dose - 08/16/23 - 727 Report Status:Signed Chest CT, 08/16/2023 11:48 AM. [...] 08/16/23 1148 Sign date/Time: 08/16/23 1332 Result [facility] Brian Lopez MD IMG CT PROCEDURES Final Result * Falls Risk Assessment (04/27/2023) [facility] Falls Risk Assessment ABSTRACTED Result [facility] Christine [facility] Final Result * Depression Screening (04/27/2023) [facility] Depression Screening ABSTRACTED Result [facility] Christine [facility] Final Result * Annual BMP Blood Test (04/12/2023) [facility] Annual BMP Blood Test ABSTRACTED Result [facility] Christine [facility] Final Result * Colonoscopy (10/02/2018) [facility] Colonoscopy no interpretation , abstracted Anatomical Region Laterality Modality Other Result [facility] Christine [facility] Final Result * Hepatitis C Screening (09/02/2012) [facility] Hepatitis C Screening ABSTRACTED Result [facility] Christine [facility] Final Result from Last 3 Months or Most Recently Relevant to Health Maintenance Insurance MEDICARE Care Teams Handle Machine Operator Relationship Specialty Start Date End Date Marky Chacko MD [address] [place] [address] PCP - General Internal Medicine 10/15/20
[2024-06-14] MEDS: iohexoL 350 MG/ML 75 ML INFUS..BTL 85 ML IV (09:00)
== END 2024-06-14 07:54 | disposition home or self-care (01) ==
LOC: HO.CT 07:53
PROVIDERS: PCP Internal Medicine; Visit Provider Nurse Practitioner Family
DX: N28.1 Cyst of kidney, acquired (principal)
CPT/HCPCS: 74178; Q9967

== ENCOUNTER → 2024-06-14 07:54 | Outpatient (BNV) | payer MEDICARE, BC, SELFPAY | PROVIDERS: PCP Internal Medicine; Visit Provider Radiology Diagnostic Radiology | DX: N28.1 Cyst of kidney, acquired (principal) | CPT/HCPCS: 74178 ==

== ENCOUNTER 2024-06-18 08:27 | Outpatient (AMB) | payer MEDICARE, SELFPAY ==
--- NOTE | 2024-06-18 08:30 | A.OFFVIS_ITS ---
Intake Visit Reasons: 1-[address]/labs(set) Intake Note: Patient presents today for a follow up on: nephrolithiasis and ct scan results Imaging Completed: 06/14/24 Urology Medications: Vitamin B6 Allergies to Antibiotics: No Known Allergies Blood Thinner: None Counter Hop Required: No Accompanied by: Unknown Allergies No Known Allergies Allergy (Verified 06/18/24 08:47) HPI Comments Details: Narayan is a pleasant 68-year-old male patient of Dr. Chacko who is accompanied by his at today's office visit. He has a past medical history of nephrolithiasis, hyperlipidemia, umbilical hernia, hypercalciuria, and hyperparathyroidism. He presents to the office today for follow-up of his nephrolithiasis as well as renal cysts. Recent renal imaging results reviewed with the patient today. CT renal mass protocol 07/03 notes solitary right and multiple left small simple cortical cysts. No suspicious renal lesion although there are multiple subcentimeter hypodensities bilaterally. Left greater than right, that are too small to accurately characterize. 8 mm hyperdense exophytic cyst in the left kidney. No acute obstructive uropathy. Nonobstructing bilateral nephrolithiasis measuring 2-3 mm. We discussed continuation of surveillance monitoring of nephrolithiasis as well as renal cysts. Patient with a previous surgical history of nephrolithiasis at which time he underwent cystoscopy, left retrograde, left dilatation of ureteric orifice under fluoroscopy, left ureteroscopy, laser lithotripsy, stone basketing - both rigid and flexible, and left stent placement on 03/07/[address] Rebollar for distal left uterine stone. In office cystoscopy with left ureteral stent removal was performed 04/02. In discussion with the patient today reports to be doing and feeling well. He denies any bothersome urinary issues or concerns. He reports compliance with vitamin B6 as prescribed and drinking plenty of water daily. He denies urinary urgency, urinary frequency, incontinence, nocturia, hematuria, dysuria, foul smelling urine, changes to urinary stream, flank pain, fever, and or chills. He is happy with his current voiding parameters. Discussed at length potential causes of nephrolithiasis. Discussed stone composition--80% calcium monohydrate. PSAs are as follows: 04/03 0.4. He otherwise denies any other issues or concerns at this time. Nephrolithiasis/Urolithiasis:? Continue with renal stone medications indapamide and vitamin B6 Urine stream normal 12/29 PSA 0.5 ?They are here for further evaluation of nephrolithiasis. ?Urolithiasis was diagnosed 10/25 - Seen by PCP with right groin pain, nausea and vomiting. ?The patient previously had kidney stones whose composition w 10/25 , calci um oxalate - monohydrate 70%. ?Laboratory investigations include Base line serum evaluation. ?24 Hour urine evaluation 11/25 , Low Urine volume < 2.0 liters, Hypercalciuria (> 200mg), High oxalate > 30mg, Low citrate < 400 - low Na ? 05/29 , Good Volume > 2.00 L, Hypercalciuria (> 200mg), High Sodium (> 100mEq), High oxalate > 30mg ? 12/27 , Good Volume > 2.00 L, Low calcium < 200, High Citrate, Low urine, High uric acid - stay on indapamide. ?Prior treatment(s) include 10/25 , right, ureteroscopy ? 05/29 , medical management B6 and indapamide ? 11/26 continue medical therapy. ?Prior imaging includes a CT (computed tomography) scan of the abdomen/pelvis (stone protocol) 6 x 4 x 8 mm calculus obstructing right ureter 6 cm above UVJ. Dilated ureter and moderate hydronephrosis. 2 mm right mid renal calculus, 2 mm right lower pole calculus, 2.5 and 2 mm left lower pole calculus. 1 cm mid right simple cyst ? 11/25 , a KUB x-ray, showing no evidence of stones ? 05/29 , a KUB x-ray, showing no evidence of stones ? 12/27 , a KUB x-ray, showing no evidence of stones ? 11/27 , a renal ultrasound, showing no evidence of stones, left renal cyst complex 12/29? renal ultrasound, 5 mm stone question on right, 1.5 cm complex cyst on left continue to follow - 01/29 renal ultrasound. 6 mm stone on right, bilateral cysts including stable complex cyst on left - 01/30 renal ultrasound 5 mm stone on right, bilateral cysts, 2.0 cm complex cyst on left. [facility] Medical History History of Mohs micrographic surgery for skin cancer Renal stones Hyperlipidemia Umbilical hernia Nocturia Weak urinary stream Hypercalciuria Hyperparathyroidism Surgical History History of surgery on right wrist History of carpal tunnel surgery of left wrist History of ankle surgery History of umbilical hernia repair History of surgery Social History Patient Tobacco Use Status: Former Tobacco user Review of Systems Const Reports no additional complaints Eyes Reports no additional complaints ENT Reports no additional complaints Card Reports as per HPI Resp Reports no additional complaints GI Reports no additional complaints Reports as per HPI Musc Reports no additional complaints Neuro Reports no additional complaints Psych Reports no additional complaints Endo Reports as per HPI Nitin/Lymph Reports no additional complaints Aller/Immun Reports no additional complaints Physical Exam Const General: cooperative, healthy appearing, comfortable, no acute distress, well developed, alert and awake Nutritional Appearance: overweight Orientation/consciousness: patient oriented x3 Limitations: no limitations HEENT Head: Yes normal to inspection, Yes normocephalic and Yes atraumatic Ears: hearing grossly normal bilaterally Eyes General: appearance normal, both eyes and all related structures Neck Neck: Yes normal visual inspection and Yes trachea midline Chest Chest palpation & inspection: normal inspection of the chest Resp Effort & Inspection: normal respiratory effort and able to speak in complete sentences Cardio Rate: regular rate GI Inspection: Yes normal to inspection General: Yes no CVA tenderness Penis: normal penis and circumcised Meatus: meatus normal Scrotum: scrotum normal Testes: Testes normal Back/Spine/Pelvis Back: no CVA tenderness Skin General skin exam: no rashes or lesions noted Neuro General: patient oriented x3 Extrem General: Yes normal to inspection Psych Appearance: grossly normal and well kempt Mental Status: mental status grossly normal Speech and movement: Normal speech and movement present and Clear speech present Affect: normal affect Attitude: cooperative Thought process: Normal thought process present Thought content: Normal thought content present Insight: Fair insight present (Psych) Judgement: Fair judgement present (Psych) Results AMB Urinalysis, Automated UA Leukoctes 0 Rik/uL Last Edit by [employer] on 06/18/24 08:48 UA Nitrite Last Edit by [employer] on 06/18/24 08:48 UA Urobilinogen 0.2 mg/dL Last Edit by [employer] on 06/18/24 08:48 UA Protein 0 mg/dL Last Edit by [employer] on 06/18/24 08:48 UA pH 6.0 Last Edit by [employer] on 06/18/24 08:48 UA Blood 0 Calin/uL Last Edit by [employer] on 06/18/24 08:48 UA Specific [place] 1.010 Last Edit by [employer] on 06/18/24 08:48 UA Ketone Last Edit by [employer] on 06/18/24 08:48 UA Bilirubin 0 mg/dL Last Edit by [employer] on 06/18/24 08:48 UA Glucose 0 mg/dL Last Edit by [employer] on 06/18/24 08:48 Results Reviewed Results Reviewed: Laboratory Last Values Urine pH (Auto) 6.0 06/18/24 08:47 Specific [place] (Auto) 1.010 06/18/24 08:47 Urine Protein (Auto) 0 mg/dL 06/18/24 08:47 Glucose (UA)(Auto) 0 mg/dL 06/18/24 08:47 Urine Blood (Auto) 0 Calin/uL 06/18/24 08:47 Urine Bilirubin (Auto) 0 mg/dL 06/18/24 08:47 Urine Urobilinogen (Auto) 0.2 mg/dL 06/18/24 08:47 Leukocyte Esterase (Auto) 0 Rik/uL 06/18/24 08:47 Date of Service: 06/14/24 CT ABDOMEN AND PELVIS WITH AND WITHOUT CONTRAST Findings: Scattered atelectasis and/or scarring in the included lungs. There is a 1.3 cm simple cortical cyst in the right kidney. 9 mm cortical hypodensity in the lower pole is too small to accurately characterize. There are multiple simple cortical cysts in the left kidney measuring up to 1.9 cm. There are additional subcentimeter cortical hypodensities that are too small to accurately characterize. There is an 8 mm hyperdense exophytic cyst. No hydronephrosis or significant perinephric edema. There are several 1-2 mm nonobstructing calculi in the right kidney. There are several 2-3 mm nonobstructing calculi in the left kidney. There are tiny nonspecific cortical calcifications in the left kidney. No acute abnormalities in the remaining solid organs. Multiple tiny hypodensities in the liver are too small to accurately characterize. No large calcified gallstone. No AAA. No bowel obstruction, pneumoperitoneum, or pneumatosis. Small diverticulum in the transverse portion of the duodenal sweep. No ascites or significant mesenteric edema. The appendix is identified. No acute appendicitis. Colonic diverticulosis. No acute diverticulitis. Prostatic calcifications. Urinary bladder unremarkable. Small fat containing bilateral inguinal hernias. No acute fracture. Moderate to moderately severe narrowing of the L4-5 and L5-S1 disc spaces. IMPRESSION: 1. Solitary right and multiple left small simple cortical cysts. No suspicious renal lesion although there are multiple subcentimeter hypodensities bilaterally, left greater than right, that are too small to accurately characterize. 8 mm hyperdense exophytic cyst in the left kidney. 2. No acute obstructive uropathy. Nonobstructing bilateral nephrolithiasis. 3. No obstructive or acute inflammatory changes in the gastrointestinal tract. 4. Diverticulosis coli. Assessment & Plan Assessment & Plan (1) Renal cyst: Code(s): N28.1 - Cyst of kidney, acquired Category: Medical (2) Complex renal cyst: Code(s): N28.1 - Cyst of kidney, acquired Category: Medical (3) Nephrolithiasis: Code(s): N20.0 - Calculus of kidney Category: Medical (4) Idiopathic hypercalciuria: Code(s): R82.994 - Hypercalciuria Category: Medical Plan In office urinalysis results reviewed with the patient today; as noted above. He currently denies any bothersome urinary issues or concerns. He reports be happy with current voiding parameters. Recent CT renal mass protocol results reviewed with the patient today; as noted above. Will continue with surveillance monitoring of nephrolithiasis as well as renal cysts. Continue vitamin B6 as discussed and prescribed. Discussed, educated, and stressed the importance of adequate hydration in relation to nephrolithiasis. Continue adding 1 oz of lemon juice to water daily. Will obtain PSA in 6 months. Will obtain renal ultrasound in 6 months. Follow-up in 6 months with imaging and PSA to be completed prior; or sooner with any issues, concerns, and or questions Orders: Orders AMB Urinalysis Automated Today Z13.9 - Encounter for screening, unspecified US renal BI 6 Months N20.0 - Calculus of kidney Prostate Specific Antigen 6 Months N40.0 - Benign prostatic hyperplasia without lower urinary tract symptoms Patient Instructions: The patient had an opportunity to ask questions regarding the treatment plan. All questions were answered. Physical exam, labs, and imaging were discussed and reviewed in detail. As well as risks, benefits, and discussion of treatment choices. No major barriers to understanding were identified. The patient expressed understanding and agreement with the above treatment plan. The patient was made aware they should contact our office by phone for worsening of their current condition, the appearance of new symptoms, or with any q uestions or concerns. Compliance is encouraged with any medications and follow up testing that is ordered. It is a privilege to be allowed the opportunity to participate in? your urological care.? Again, if you have any questions or concerns If you have any questions or concerns please do not hesitate to contact me. The office is [phone]. This note is constructed using voice recognition software. While every effort has been made to ensure accuracy aeronautics teacher errors may have been included. Yours sincerely, DARLENE Daniels Coding Level of Care Code Est Pt Level 3 (46316) Complex EM visit Add On G2211 Diagnoses Renal cyst N28.1 Complex renal cyst N28.1 Nephrolithiasis N20.0 Idiopathic hypercalciuria R82.994
--- OUTSIDE RECORDS SUMMARY | 2024-06-18 08:39 | XMS_ITS | Data Portability ---
Author Organization [facility] Alexander Torres Gadarrell [facility], [facility] Address [address] [place] [address] Care Team Providers Care Sheet Turner Name Role Phone FABY DURHAM Referring Provider FABY DURHAM Primary Care Provider [phone] Assessment Encounter Date Assessment Date Assessment LastModified by Organization Details LastModified Time 04/30/2024 04/30/2024 Assessment: Making good steady progress increasing ROM, good active mechanics. Making steady progress increasing strength, fatigues quickly. Plan: Continue PT @ 1x/wk to decrease pain, increase ROM, optimize mechanics, and improve participation in functional activities. finish out appts then D/c to I HEP. Not available 04/26/2024 18:30:36 05/11/2024 05/11/2024 Assessment: Good overall ROM with improving mechanics. Making steady gains increasing strength Plan: Continue PT @ 1x/wk to decrease pain, increase ROM, optimize mechanics, and improve participation in functional activities. finish out appts then D/c to I HEP. [email or web address] Not available 05/11/2024 08:23:45 05/18/2024 05/18/2024 Assessment: Good overall ROM with improving mechanics. Making steady gains increasing strength. good james to wall stabilization exercises. Plan: Continue PT @ 1x/wk to decrease pain, increase ROM, optimize mechanics, and improve participation in functional activities. finish out appts then D/c to I HEP. [email or web address] Not available 05/18/2024 11:34:36 05/25/2024 05/25/2024 Assessment: Good overall ROM with improving mechanics. Making steady gains increasing strength. good james to wall stabilization exercises. mild UT tightness Plan: Continue PT @ 1x/wk to decrease pain, increase ROM, optimize mechanics, and improve participation in functional activities. finish out appts then D/c to I HEP. [email or web address] Not available 05/25/2024 08:14:26 06/01/2024 06/01/2024 Assessment: Great overall ROM with improving mechanics. Making steady gains increasing strength. Improving active mechanics Plan: D/c to I HEP. Not available 06/01/2024 08:12:54 Plan of Treatment [...] and Address Organization Details Recorded Time 4 62216 Therapeutic Exercise (1:1) completed [facility] Gran[facility] PT [address], [place], [address], [facility] 03/26/2024 16:11:52 4 56554 Therapeutic Exercise (1:1) completed Lakisha Villarreal PTA [address], [place], [address], [facility] 03/22/2024 14:19:44 4 87400: Manual therapy completed Lakisha Villarreal PTA [address], [place], [address], [facility] 03/22/2024 14:19:44 4 14266 Therapeutic Exercise (1:1) completed [facility] [address], [place], [address], [facility] 03/16/2024 12:41:20 4 26823: Manual therapy completed Casa Granado PT [address], [place], [address], [facility] 03/16/2024 12:41:20 4 29880 Therapeutic Exercise (1:1) completed Casa Granado, PT [address], [place], [address], [facility] 03/15/2024 06:31:03 4 16219: Manual therapy completed Casa Granado, PT [address], [place], [address], [facility] 03/15/2024 06:31:03 4 17290 Therapeutic Exercise (1:1) completed Casa Granado, PT [address], [place], [address], [facility] 03/12/2024 18:20:54 4 94924: Manual therapy completed Casa Granado, PT [address], [place], [address], [facility] 03/13/2024 15:27:52 4 36251 Therapeutic Exercise (1:1) completed Lakisha Villarreal, CRYPTOGRAPHY TEACHER [address], [place], [address], [facility] 03/05/2024 06:41:29 4 55827: Manual therapy completed Lakisha Villarreal, CRYPTOGRAPHY TEACHER [address], [place], [address], [facility] 03/05/2024 12:30:39 4 15230 Therapeutic Exercise (1:1) completed Casa Granado, PT [address], [place], [address], [facility] 03/01/2024 15:14:27 4 18002: Manual therapy completed Casa Granado, PT [address], [place], [address], [facility] 03/01/2024 15:14:27 4 98313 Therapeutic Exercise (1:1) completed Casa Granado, PT [address], [place], [address], [facility] 02/27/2024 10:55:20 4 08313: Manual therapy completed Casa Granado PT [address], [place], [address], [facility] 02/27/2024 10:55:20 4 46515 Therapeutic Exercise (1:1) completed Casa Granado, PT [address], [place], [address], [facility] 02/24/2024 10:04:16 4 46420: Manual therapy completed Casa Granado PT [address], [place], [address], [facility] 02/23/2024 14:42:13 4 13957 Therapeutic Exercise (1:1) completed Lakisha Villarreal PTA [address], [place], [address], [facility] 02/17/2024 14:52:00 4 25613: Manual therapy completed Lakisha Villarreal PTA [address], [place], [address], [facility] 02/17/2024 14:52:00 4 69158 Therapeutic Exercise (1:1) completed Lakisha Villarreal PTA [address], [place], [address], [facility] 02/16/2024 15:29:45 4 41969: Manual therapy completed Lakisha Villarreal PTA [address], [place], [address], [facility] 02/16/2024 15:29:46 4 88393 Therapeutic Exercise (1:1) completed Lakisha Villarreal PTA [address], [place], [address], [facility] 02/15/2024 08:24:38 4 08191: Manual therapy completed Lakisha Villarreal, CRYPTOGRAPHY TEACHER [address], [place], [address], [facility] 02/15/2024 08:24:45 4 15656 Therapeutic Exercise (1:1) completed Casa Granado, PT [address], [place], [address], [facility] 02/08/2024 11:17:58 4 78246: Low complexity PT Eval completed Casa Granado, PT [address], [place], [address], [facility] 02/08/2024 11:18:01 4 G8417 BMI Above Upper Parameters, F/U Documented completed Casa Granado, PT [address], [place], [address], [facility] 02/09/2024 07:15:11 4 G8427 Current Medication Documented completed Casa Granado, PT [address], [place], [address], [facility] 02/09/2024 07:15:05 4 JZShoulder INJ completed Casa Finnegan PA-C [address], [place], [address], [facility] 09/19/2023 13:58:06 Imaging Results None recorded. 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 9656099990 72971 M75.01 Osteoarthr itis of right glenohumeral joint 8633645958 228490 M19.176 [id number] VARUN Vargas 2nd floor [address] [place] [address] 11/08/2023 09:19:30 12/07/2023 18:36:06 Pain of right shoulder joint [id number] 4842704 M25.511 Osteoarthr itis of right glenohumeral joint 4502631912 745834 M19.769 [id number] MD Torsten Acosta 2nd floor [address] [place] [address] 12/05/2023 08:02:49 12/28/2023 11:47:17 Osteoarthritis of joint of right shoulder region 2167735481 21728 M19.456 [id number] MD Torsten Acosta 2nd floor [address] [place] [address] 12/26/2023 14:19:12 01/17/2024 14:48:29 Osteoarthritis of joint of right shoulder region 0625661777 67721 M19.023 [id number] MD Kenn Acosta [facility] [place] [address] 01/13/2024 11:26:01 02/08/2024 09:12:03 History of reverse prosthetic total arthroplasty of right shoulder 8960378008 0809081 Z96.206 [id number] Maria C Gore MD [facility] [address] [place] [address] 02/09/2024 06:44:56 02/09/2024 07:27:56 Aftercare [id number] Z47.1 Z96.152 [id number] Chon Nielsen PA-C [facility] [address] [place] [address] 02/15/2024 15:41:43 03/13/2024 09:48:38 Postoperative visit [id number] Z48.89 [id number] Casa Granado, PT [facility] [address] [place] [address] 02/15/2024 07:55:47 02/15/2024 08:32:10 Aftercare [id number] Z47.1 Z96.452 [id number] Casa Granado, PT [facility] [address] [place] [address] 02/17/2024 08:57:12 02/17/2024 10:14:24 Aftercare [id number] Z47.1 Z96.518 [id number] Casa Granado, PT [facility] [address] [place] [address] 02/20/2024 07:22:56 02/20/2024 09:00:09 Aftercare [id number] Z47.1 Z96.209 [id number] Casa Granado, PT [facility] [address] [place] [address] 02/24/2024 07:12:27 02/24/2024 10:01:57 Aftercare [id number] Z47.1 Z96.611 [id number] Casa Granado, PT [facility] [address] [place] [address] 02/28/2024 06:42:17 02/28/2024 07:47:47 Aftercare [id number] Z47.1 Z96.682 [id number] Casa Granado, PT [facility] [address] [place] [address] 03/02/2024 06:37:32 03/02/2024 07:52:37 Aftercare [id number] Z47.1 Z96.922 [id number] Casa Granado, PT [facility] [address] [place] [address] 03/05/2024 09:58:23 03/05/2024 10:31:30 Aftercare [id number] Z47.1 Z96.305 [id number] Casa Granado, PT [facility] [address] [place] [address] 03/13/2024 07:51:50 03/13/2024 08:16:36 Aftercare [id number] Z47.1 Z96.331 [id number] Maria C Gore MD [facility] [address] [place] [address] 03/15/2024 07:49:14 03/15/2024 09:07:32 Aftercare [id number] Z47.1 Z96.130 [id number] Casa Granado, PT [facility] [address] [place] [address] 03/20/2024 10:52:33 03/20/2024 11:59:43 Aftercare [id number] Z47.1 Z96.238 [id number] Casa Granado, PT [facility] [address] [place] [address] 03/23/2024 07:15:14 03/23/2024 08:39:38 Aftercare [id number] Z47.1 Z96.021 [id number] Casa Granado, PT [facility] [address] [place] [address] 03/27/2024 08:25:53 03/27/2024 08:55:55 Aftercare [id number] Z47.1 Z96.369 [id number] Casa Granado, PT [facility] [address] [place] [address] 03/30/2024 07:56:20 03/30/2024 09:56:10 Aftercare [id number] Z47.1 Z96.574 [id number] Casa Granado, PT [facility] [address] [place] [address] 04/03/2024 07:51:52 04/03/2024 09:41:36 Aftercare [id number] Z47.1 Z96.123 [id number] Casa Granado, PT [facility] [address] [place] [address] 04/06/2024 07:22:04 04/06/2024 09:03:18 Aftercare [id number] Z47.1 Z96.488 [id number] Cassandra Mckeon, DPT [facility] [address] [place] [address] 04/09/2024 07:53:28 04/09/2024 08:26:29 Aftercare [id number] Z47.1 Z96.094 [id number] MD GARRETT Acosta 2nd floor [address] [place] [address] 04/16/2024 09:27:32 04/30/2024 09:38:12 History of artificial joint [id number] Z96.674 [id number] Casa Granado, PT [facility] - [facility] [address] [place] [address] 04/18/2024 06:53:27 04/18/2024 08:17:14 Aftercare [id number] Z47.1 Z96.639 [id number] Cassandra Mckeon, DPT [facility] - [facility] [address] [place] [address] 04/25/2024 06:56:48 04/25/2024 07:53:13 Aftercare [id number] Z47.1 Z96.967 [id number] MD GARRETT Acosta PT [address] [place] [address] 04/30/2024 07:25:36 04/30/2024 08:26:13 Aftercare [id number] Z47.1 Z96.517 [id number] Casa Granado, PT [facility] - [facility] [address] [place] [address] 05/11/2024 07:18:36 05/11/2024 09:32:12 Aftercare [id number] Z47.1 Z96.194 [id number] Casa Granado, PT [facility] - [facility] [address] [place] [address] 05/18/2024 07:23:56 05/18/2024 10:03:09 Aftercare [id number] Z47.1 Z96.913 [id number] Casa Granado, PT [facility] - [facility] [address] [place] [address] 05/25/2024 07:13:58 05/25/2024 08:21:42 Aftercare [id number] Z47.1 Z96.102 [id number] Cassandra Mckeon, DPT [facility] [address] [place] [address] 06/01/2024 07:22:54 06/01/2024 08:13:34 Aftercare [id number] Z47.1 Z96.611 Health Concerns Section Related Observation LastModified by Organization Detai ls LastModified Time None Recorded Concern Status LastModified by Organization Details LastModified Time None Recorded Advance Directives Directive None Recorded Payers Encounter Date Sequence Insurance Name Policy Number Policy Silver Covered Member ID Silver Member ID Guarantor Name 04/30/2024 1 [place] [employer] Narayan Ceballos [id number] Narayan Lin 04/30/2024 2 [place] [facility] [employer] [place] [place] [id number] Narayan Ceballos [id number] Narayan Whitneyba 05/11/2024 1 [place] [employer] [employer] Narayan Whitneyba [id number] Narayan Whitneyba 05/11/2024 2 [place] [facility] [id number] Narayan Ceballos [id number] Narayan Whitneyba 05/18/2024 1 [place] [employer] Narayan Whitneyba [id number] Narayan Lin 05/18/2024 2 [place] [facility] [id number] Narayan Newby Lin [id number] Narayan Lin 05/25/2024 1 [place] [employer] Narayan Newby Lin [id number] Narayan Lin 05/25/2024 2 [place] [facility] [id number] Narayan Newby Lin [id number] Narayan Lin 06/01/2024 1 [place] [employer] Narayan Whitneyba [id number] Narayan Lin 06/01/2024 2 [place] [facility] [id number] Narayan Newby Lin [id number] Narayan Ceballos Notes Date Note Type Note Provider Name and Address Organization Details Recorded Time 04/30/2024 text/html Pain 0/10 at rest. No new complaints at this time. Has been using his total gym at home with no issues. Pt wishes to continue with PT; feels like it has been helping. Cassandra Mckeon, DPT [address], [place], [address], [facility] 04/30/2024 10:06:04 05/11/2024 text/html Pt reports 0/10 px in R shoulder but notes L shoulder is starting to become bothersome. Has been using his total gym at home with no issues. Pt wishes to continue with PT; feels like it has been helping. Lakisha Villarreal CRYPTOGRAPHY TEACHER [address], [place], [address], [facility] 05/11/2024 08:24:00 05/18/2024 text/html Pt reports 0/10 px in R shoulder. Has been using his total gym at home with no issues. Some soreness from shoveling this week Lakisha Villarreal CRYPTOGRAPHY TEACHER [address], [place], [address], [facility] 05/18/2024 11:34:52 05/25/2024 text/html Pt reports 0/10 px in R shoulder. Has been using his total gym at home with no issues. Reports no new issues with R shoulder but has some soreness in L shoulder. Lakisha Villarreal, CRYPTOGRAPHY TEACHER [address], [place], [address], [facility] 05/25/2024 08:14:43 06/01/2024 text/html Pt reports 0/10 px in R shoulder. Has been using his total gym at home with no issues. Pt reports he is happy with his progress Lakisha Villarreal PTA [address], [place], [address], [facility] 06/01/2024 08:13:11
--- OUTSIDE RECORDS SUMMARY | 2024-06-18 08:39 | XMS_ITS | Clinical Summary ---
Author Organization [facility] [address] [place] [address] [place] [phone] Phone Care Team Providers Care Check Embosser Name Role Phone Marky Chacko MD Primary Care Provider Allergies No known active allergies Medications multivit-minera [...] (06/16/2023): Received a DIFFICULT AIRWAY REPORT from [facility] dated 11/15/2015. Patient was undergoing a [...] COMMENT: Received a DIFFICULT AIRWAY REPORT from [facility] dated 11/15/2015. Patient was undergoing a [...] Upcoming Encounters Date Type Department Care Team ([facility] st Contact Info) Description 08/13/2024 8:45 AM EDT Office Visit Adult Medicine [address] [place] [address] Marky Chacko MD [address] [place] [address] Health Maintenance Due Date Last Done Comments [...] AM EDT Narrative 08/16/2023 1:32 PM EDT [facility] Diagnostic Imaging Department [address] [place] [address] Patient: ??GRETTA HAYES ?/Age/Sex: 1955 - 67 - M Unit#: ??[id number] ? Location/Status: ??SPDICATLS/REG CLI ? Mnemonic/Ordering Site: [...] Procedure Note Ben Houser MD - 11/28/2023 [facility] Diagnostic Imaging Department [address] [place] [address] Patient: LINGRETTA Keyonna /Age/Sex: 1955 - 67 - M Unit#: [id number] Location/Status: [facility] Mnemonic/Ordering Site: [facility] Ordering Physician: BRIAN LOPEZ MD [...] 08/16/23 1148 Sign date/Time: 08/16/23 1332 Result [facility] Brian Lopez MD IMG CT PROCEDURES Final Result * Falls Risk Assessment (04/27/2023) [facility] Falls Risk Assessment ABSTRACTED Result [facility] Final Result * Depression Screening (04/27/2023) [facility] Depression Screening ABSTRACTED Result [facility] Final Result * Annual BMP Blood Test (04/12/2023) [facility] Annual BMP Blood Test ABSTRACTED Result [facility] Final Result * Colonoscopy (10/02/2018) [facility] Colonoscopy no interpretation , abstracted Anatomical Region Laterality Modality Other Result [facility] Final Result * Hepatitis C Screening (09/02/2012) [facility] Hepatitis C Screening ABSTRACTED Result [facility] Final Result from Last 3 Months or Most Recently Relevant to Health Maintenance Insurance MEDICARE Care Teams Check Embosser Relationship Specialty Start Date End Date Marky Chacko MD [address] [place] [address] PCP - General Internal Medicine 10/15/20
== END 2024-06-18 09:04 | disposition home or self-care (01) ==
PROVIDERS: PCP Internal Medicine; Visit Provider Nurse Practitioner Family
DX: N28.1 Cyst of kidney, acquired (principal); N20.0 Calculus of kidney; R82.994 Hypercalciuria; Z13.9 Encounter for screening, unspecified
CPT/HCPCS: 99213; G2211

== ENCOUNTER → 2024-06-18 08:27 | Outpatient (BNVA) | payer MEDICARE, SELFPAY | PROVIDERS: PCP Internal Medicine; Visit Provider Nurse Practitioner Family | DX: N28.1 Cyst of kidney, acquired (principal); N20.0 Calculus of kidney; R82.994 Hypercalciuria | CPT/HCPCS: 81003; 99212 ==

== ENCOUNTER 2024-12-11 10:23 | Outpatient (REF) | payer MEDICARE, SELFPAY ==
--- NOTE | ~2024-12-11 | US_ITS ---
CLINICAL HISTORY: N20.0 - Calculus of kidney US of kidneys Comparison: CT/SR - CT ABDOMEN PELVIS WO/W IV CON - 06/14/24 08:08 EST US/SR - US KIDNEY BILATERAL - 12/06/23 13:14 EDT Findings: Right kidney is normal in size, echogenicity and morphology, 11.3 cm in length. Simple cyst 1.7 cm in the midpole, 0.7 cm lower pole cortical cyst with echogenic posterior wall probably due to increased through transmission versus likely partial wall calcification, avascular. 5 mm calculus in the midpole, 4 mm calculus in the lower pole. Left kidney is normal in size, echogenicity and morphology, 11.3 cm in length. Avascular benign cysts 1.2 cm in the upper pole, 1.3 cm in the midpole, 0.9 cm in the lower pole. 4 mm calculus in the lower pole. Lobulated nonshadowing hyperechoic avascular lesion in the midpole cortex, 1.1 x 1.3 x 1.7 cm. Impression: 1. Left renal hyperechoic mass 1.7 cm at the interpolar region, similar finding was present on prior ultrasound from 2023, the surrounding cystic component previously seen is not visualized, may reflect cortical scar or angiomyolipoma, calcification is felt to be less likely, recommend renal CT without and with IV contrast. 2. Nonobstructing bilateral nephrolithiasis. 3. Bilateral renal cysts. This document has been electronically signed by: Sindhu Chacko MD on 12/11/2024 13:33:14
--- OUTSIDE RECORDS SUMMARY | 2024-12-11 11:53 | XMS_ITS | Clinical Summary ---
Author Organization [facility] [address] [place] [address] Address [address] [place] [address] Phone Care Team Providers Care Cook Chill Technician Name Role Phone Marky Chacko MD Primary Care Provider [phone] Allergies No known active allergies Medications multivit-mobile paramedical examiner als/folic acid (CENTRUM ADULTS ORAL) 1 [...] mg total) by mouth. 12/19/19 19 Active albuterol HFA (PROVENTIL HFA;VENTOLIN HFA) 108 (90 Base) MCG/ACT inhaler Route: Inhale 2 Puffs into the lungs every 4 hours as needed for Cough or Wheezing. - Inhalation Active UNABLE TO FIND Med Name: Pyridoxine HCl (vitamin B-6) 100 MG tablet 12/18/2018 Sig - Route: Take 1 Tablet by mouth. - Oral Active amLODIPine (NORVASC) 5 mg tablet TAKE 1 TABLET(5 MG) BY MOUTH 1 TIME EACH DAY 90 tablet 1 10/31/19 25 Active atorvastatin (LIPITOR) 20 mg tablet TAKE 1 TABLET BY MOUTH DAILY 90 tablet 1 11/24/19 25 Active atorvastatin (LIPITOR) 20 mg tablet Take 1 Tablet by mouth daily for 360 days. 10/26/19 24 025 Discontinued Active Problems Problem Noted Date Diagnosed Date Basal cell carcinoma of right forehead 5 Cervical spondylosis 09/09/2023 Overview (01/10/2024): Last Assessment [...] (06/16/2023): Received a DIFFICULT AIRWAY REPORT from [facility] dated 11/15/2015. Patient was undergoing a surgical procedure and they had difficulty performing endotracheal intubation. A copy of this form will be scanned into the patient's EMR. Hyperparathyroidism (CMS/HCC V24) 02/24/2007 Overview (06/16/2023): Parathyroidectomy 2000 Mixed hyperlipidemia 02/24/2007 Umbilical hernia 02/24/2007 Overview (06/16/2023): Repair 2003 Encounters Date Type Department Care Team Description 12/04/2024 Telephone Adult Medicine [address] [phone] Marky Chacko MD 11/14/2024 Telephone General Surgery [facility] [address] [place] [phone] Trung Massey DO 11/12/2024 8:00 AM EDT Consult Plastic & Reconstructive Surgery [facility] [address] [place] [address] Janeth Cox PA History of basal cell carcinoma (Primary Dx); Basal cell carcinoma (BCC) of right forehead 10/29/2024 Telephone Adult Medicine [address] [phone] Marky Chacko MD 10/10/2024 9:30 AM EDT Office Visit Adult [address] [phone] Marky Chacko MD Right knee pain, unspecified chronicity (Primary Dx); Chronic left shoulder pain; Mixed hyperlipidemia; Primary hypertension; Pulmonary nodules; Renal cyst, left; Obesity (BMI 30-39.9) 10/01/2024 Telephone Adult Medicine [address] [phone] Marky Chacko MD 09/14/2024 Telephone Adult Medicine [address] [phone] Marky Chacko MD from Last 3 Months Immunizations Name Administration [...] Medical History Medical History Date Comments Hyperparathyroidism (CMS/HCC V24) 02/24/2007 DX:Hyperparathyroidism (HCC); COMMENT: Parathyroidectomy 1999 Umbilical hernia 02/24/2007 [...] COMMENT: Received a DIFFICULT AIRWAY REPORT from [facility] dated 11/15/2015. Patient was undergoing a [...] Sign Reading Time Taken Comments Blood Pressure 147/85 11/12/2024 8:07 AM EDT Pulse 57 11/12/2024 8:07 AM EDT Temperature 36.1 C (96.9 F) 10/10/2024 9:29 AM EDT Respiratory Rate 20 10/10/2024 9:29 AM EDT Oxygen Saturation 96% 09/04/2024 10: 10 AM EDT Inhaled Oxygen Concentration - - Weight 92.4 kg (203 lb 12.8 oz) 11/12/2024 8:07 AM EDT Height 162.6 cm (5' 4 ) 11/12/2024 8:07 AM EDT Body Mass Index 34.98 11/12/2024 8:07 AM EDT Plan of Treatment Upcoming Encounters Date Type Department Care Team (Late st Contact Info) Description 01/07/2025 10:00 AM EDT Consult Adult Medicine [facility] [address] [place] [address] Marky Chacko MD [address] [place] [address] 01/18/2025 7:30 AM EDT Hospital Encounter [facility] Main OR [address] [place] [phone] Trung Massey, [address] [place] [address] 01/18/2025 7:30 AM EDT - 01/18/2025 9:00 AM EDT Surgery [facility] OR [address] [place] [phone] Trung Massey DO [address] [place] [address] EXCISION LESION *right forehead* WITH FROZEN 01/25/2025 8:00 AM EDT Office Visit Plastic & Reconstructive Surgery [facility] [address] [facility] [address] [place] [phone] Noble Small PA [address] [place] [address] 02/27/2025 9:30 AM EST Office Visit Adult Medicine [facility] [address] [place] [address] Marky Chacko MD [address] [place] [address] 09/04/2025 8:15 AM EDT Office Visit Pulmonolgy [facility] [address] [facility] [address] [place] [phone] Andry Nguyen MD [address] [place] [address] Scheduled Procedures Name Priority Associated Diagnoses Date/Ti me EXCISION LESION EAR Basal cell carcinoma of right forehead 01/18/2025 7:30 AM EDT REPAIR LACERATION Basal cell carcinoma of right forehead 01/18/2025 7:30 AM EDT Health Maintenance Due Date Last Done Comments Zoster Vaccines (1 of 2) 06/23/2016 04/28/2016 Abdominal Aortic Aneurysm (AAA) Screen 03/20/2022 Social Influencers of Health Screening 03/20/2022 Depression Screening 04/11/2024 04/27/2023 Hypertension/CHF/CAD Annual BMP Blood Test 04/12/2024 04/12/2023 Falls Risk Assessment 04/27/2024 04/27/2023, 024 Medicare Annual Wellness Visit 04/27/2024 04/27/2023 COVID-19 Vaccine (6 - Moderna risk season) 2024 01/09/2024, 02/18/2023, 02/10/2021, Additional history exists Influenza Vaccine (#1) 2024 , 02/11/2023, 01/07/2021, Additional history exists Lung Cancer Screening (Low Dose CT) 08/21/2025 08/21/2024, 08/16/2023, 08/16/2023, Additional history exists DTaP,Tdap,and Td Vaccines (3 - Td or Tdap) 04/15/2027 04/15/2017, 02/24/2007 Colorectal Cancer Screening: Colonoscopy 10/02/2028 10/02/2018, 10/02/2018 Cholesterol Screening (Lipid Panel) 08/10/2029 08/10/2024, 02/06/2024, 10/18/2023, Additional history exists Hepatitis C Screening Completed 09/02/2012, 013 Pneumococcal Vaccine: 50+ Years Completed 03/06/2024 RSV Immunization Adult Patients Completed 03/14/2024 HIB Vaccines Aged Out No longer eligi [...] age to complete this topic Meningococcal B Vaccine Aged Out No l onger eligible based on patient's age to complete this topic RSV Immunization Patients Under 20 months Aged Out No longer eligible based on patient's age to complete this topic Varicella Vaccines Aged Out No longer eligible based on patient's age to complete this topic Procedures Procedure Name Priority Date/Time Associated Diagnosis Comments CT LUNG SCREENING Routine 08/21/2024 7:1 9 AM EDT Personal history of nicotine dependence Encounter for screening for malignant neoplasm of respiratory organs LIPID PANEL WITH REFLEX TO DIRECT LDL Routine 08/10/2024 7:52 AM EDT Mixed hyperlipidemia DEPRESSION SCREENING Routine 04/27/2023 FALLS RISK ASSESSMENT Routine 04/27/2023 ANNUAL BMP BLOOD TEST Routine 04/12/2023 COLONOSCOPY Routine 10/02/2018 HEPATITIS C SCREENING Routine 09/02/2012 from Last 3 Months or Most Recently Relevant to Health Maintenance Results * CT Lung Screening (08/21/2024 7:19 AM EDT) Anatomical Region Laterality Modality Chest Computed Tomogra phy 08/21/2024 7:38 AM EDT Impressions 08/21/2024 7:51 AM EDT No suspicious mass or nodule. No suspicious interval change LUNG RADS: Lung-RADS 2: BENIGN S Modifier (Significant or Potentially Significant Findings): None present No suspicious nonpulmonary findings. RECOMMENDATIONS: 12 month screening low dose CT -------- FINAL REPORT -------- Dictated By: Jonathan Reaves Dictated Date: 08/21/2024 07:38 ET Assigned Physician: Jonathan Reaves Reviewed and Electronically Signed By: Jonathan Reaves Signed Date: 08/21/2024 07:51 ET Workstation ID: [id number] Transcribed By: Self Edit Transcribed Date: 08/21/2024 07:38 ET Narrative 08/21/2024 7:51 AM EDT EXAMINATION: CT CHEST WITHOUT CONTRAST LUNG CANCER SCREENING, LOW DOSE CLINICAL INFORMATION: Lung cancer screening. Former smoker. COMPARISON: Portions of previous 08/16/23 TECHNIQUE: Multidetector CT. Examination of the chest. Examination of the chest without IV contrast. Reformatting in the coronal and sagittal planes. Device: ChimerixT DLP: 158 mGy-cm CTDI: 4.83 Dose optimization was performed including the use of low-dose iterative reconstruction technique with automatic exposure control based on patient size. Type of contrast: None Volume of IV contrast: None Volume of contrast discarded: 0 mL FINDINGS: LUNG: No abnormality of the trachea or mainstem bronchi. LUNG NODULES: There are no suspicious nodules or masses. Unchanged 2.3 cm nodule in the periphery lateral segment of the middle lobe (3/157) OTHER PULMONARY: There are reticular, linear and bandlike opacities in the lower lung zones are similar to previously and are likely fibrotic. MEDIASTINUM: There are no enlarged mediastinal or hilar lymph nodes. No suspicious abnormalities of the esophagus. CARDIAC: There is no cardiac mass. No significant pericardial fluid. There are moderate coronary calcifications. VASCULAR: There is no thoracic aortic aneurysm. The main pulmonary artery is normal caliber PLEURA: There is no pleural fluid or pneumothorax AXILLA/CHEST WALL: There are no enlarged axillary lymph nodes. No chest wall mass demonstrated. VISUALIZED UPPER ABDOMEN: No suspicious abnormality on limited assessment of the visualized upper abdomen. MUSCULOSKELETAL: There is artifact related to the right shoulder. There is narrowing with sclerosis osteophyte and erosion around the left glenohumeral joint. There are some degenerative changes in the midthoracic spine Procedure Note Jonathan Reaves MD - 08/21/2024 EXAMINATION: CT CHEST WITHOUT CONTRAST LUNG CANCER SCREENING, LOW DOSE CLINICAL INFORMATION: Lung cancer screening. Former smoker. COMPARISON: Portions of previous 08/16/23 TECHNIQUE: Multidetector CT. Examination of the chest. Examination of the chest without IV contrast. Reformatting in the coronal and sagittal planes. Device: ePartnerspePerfusix VCT DLP: 158 mGy-cm CTDI: 4.83 Dose optimization was performed including the use of low-dose iterativereconstruction technique with automatic exposure control based on patientsize. Type of contrast: None Volume of IV contrast: None Volume of contrast discarded: 0 mL FINDINGS: LUNG: No abnormality of the trachea or mainstem bronchi. LUNG NODULES: There are no suspicious nodules or masses. Unchanged 2.3 cm nodule in the periphery lateral segment of the middlelobe (3/157) OTHER PULMONARY: There are reticular, linear and bandlike opacities inthe lower lung zones are similar to previously and are likely fibrotic. MEDIASTINUM: There are no enlarged mediastinal or hilar lymph nodes. Nosuspicious abnormalities of the esophagus. CARDIAC: There is no cardiac mass. No significant pericardial fluid. There are moderate coronary calcifications. VASCULAR: There is no thoracic aortic aneurysm. The main pulmonary arteryis normal caliber PLEURA: There is no pleural fluid or pneumothorax AXILLA/CHEST WALL: There are no enlarged axillary lymph nodes. No chestwall mass demonstrated. VISUALIZED UPPER ABDOMEN: No suspicious abnormality on limited assessmentof the visualized upper abdomen. MUSCULOSKELETAL: There is artifact related to the right shoulder. There isnarrowing with sclerosis osteophyte and erosion around the leftglenohumeral joint. There are some degenerative changes in themidthoracic spine IMPRESSION: No suspicious mass or nodule. No suspicious interval change LUNG RADS: Lung-RADS 2: BENIGN S Modifier (Significant or Potentially Significant Findings): Nonepresent No suspicious nonpulmonary findings. RECOMMENDATIONS: 12 month screening low dose CT -------- FINAL REPORT -------- Dictated By: Jonathan Reaves Dictated Date: 08/21/2024 07:38 ET Assigned Physician: Jonathan Reaves Reviewed and Electronically Signed By: Jonathan Reaves Signed Date: 08/21/2024 07:51 ET Workstation ID: [id number] Transcribed By: Self Edit Transcribed Date: 08/21/2024 07:38 ET Brian Rivera MD [facility] [place]EDURES Final Result * Lipid panel with reflex to direct LDL (08/10/2024 7:52 AM EDT) Cholesterol 130 0 - 200 mg/dL LAB CHEMISTRY METHOD 08/10/2024 11:02 AM [facility] Triglycerides 81 0 - 150 mg/dL LAB CHEMISTRY METHOD [facility]24 [facility] HDL 51 >=40 mg/dL LAB CHEMISTRY METHOD 08/10/2024 11:02 AM [facility] LDL Calculated 63 0 - 100 mg/dL LAB CHEMISTRY METHOD 08/10/2024 11:02 AM [facility] VLDL Cholesterol Carlos 16.2 mg/dL LAB CHEMISTRY METHOD 08/10/2024 11:02 AM EDT [facility] Non HDL Chol. (LDL+VLDL) 79 <145 mg/dL LAB CHEMISTRY METHOD 08/10/2024 11:02 AM EDT [facility] Chol/HDL Ratio 2.5 0.0 - 4.4 LAB CHEMISTRY METHOD 08/10/2024 11:02 AM EDT [facility] Blood Venous blood specimen / Unknown Venipuncture / Unknown 08/10/2024 7:52 AM EDT 08/10/2024 7:52 AM EDT Marky Chacko MD LAB BLOOD ORDERABLES Final Resul t [facility] [address] [place] [address], [place] [phone] * Falls Risk Assessment (04/27/2023) [facility] Falls Risk Assessment ABSTRACTED [facility] Provider HEALTH MAINTENANCE Final Result * Depression Screening (04/27/2023) [facility] Depression Screening ABSTRACTED Result [facility] Christine DOMINGO HEALTH MAINTENANCE Final Result * Annual BMP Blood Test (04/12/2023) [facility] Annual BMP Blood Test ABSTRACTED Result [facility] Christine DOMINGO HEALTH MAINTENANCE Final Result * Colonoscopy (10/02/2018) [facility] Colonoscopy no interpretation , abstracted Anatomical Region Laterality Modality Other Historical Provider HEALTH MAINTENANCE Final Result * Hepatitis C Screening (09/02/2012) [facility] Hepatitis C Screening ABSTRACTED Result [facility] Historical Christine DOMINGO HEALTH MAINTENANCE Final Result from Last 3 Months or Most Recently Relevant to Health Maintenance Insurance MEDICARE [facility] Care Teams Cook Chill Technician Relationship Specialty Start Date End Date Marky Chacko MD [address] [place] [address] PCP - General Internal Medicine 10/15/20
--- OUTSIDE RECORDS SUMMARY | 2024-12-11 11:53 | XMS_ITS ---
Author Organization [facility] [address] [place] [address] Address [address] [place] [address] Phone Care Team Providers Care Aircraft Engine Cylinder Mechanic Name Role Phone Marky Chacko MD Primary Care Provider [phone] Active Problems Problem Noted Date Diagnosed Date Basal cell carcinoma of right forehead Cervical spondylosis 09/09/2023 Overview (01/10/2024): Last Assessment & Plan: I reviewed the imaging and EMG findings in detail with Mr. Ceballos and I do not believe this is [...] 08/17/2022 Overview (06/16/2023): Last Assessment & Plan: Narayan has subcentimeter pulmonary nodules found on lung [...] (06/16/2023): Received a DIFFICULT AIRWAY REPORT from [facility] dated 11/15/2015. Patient was undergoing a surgical procedure and they had difficulty performing endotracheal intubation. A copy of this form will be scanned into the patient's EMR. Hyperparathyroidism (CMS/HCC V24) 02/24/2007 Overview (06/16/2023): Parathyroidectomy 2000 Mixed hyperlipidemia 02/24/2007 Umbilical hernia 02/24/2007 Overview (06/16/2023): Repair 2002 Current Oncology Plans No current plan information found. Past Plans No past plan information found. Radiation Treatments * No radiation treatments are documented for this patient in [email or web address]. Treatments may have been administered in another system. Lifetime Dose Tracking * Chemical Lifetime Dose Automatic Entry Manual Entr y Radiation (DLP) 158.31 mGy-cm 158.31 mGy-cm 0 mGy-cm CTDIvol 4.83 mGy 4.83 mGy 0 mGy
--- OUTSIDE RECORDS SUMMARY | 2024-12-11 11:53 | XMS_ITS | Encounter Summary ---
Author Organization [facility] Address [address] [place] [address] Care Team Providers Care Valving Machine Operator Name Role Phone Marky Chacko MD Primary Care Provider [phone] Reason for Referral * Consultation (Routine) - Closed Specialty Diagnoses / Procedures Referred By Contac t Referred To Contact Diagnoses Arthralgia of shoulder, unspecified laterality Marky Chacko MD [address] [place] [address] Phone: tel: fax: Maria C Gore MD [facility] [address] [place] [address] Phone: tel: fax: Referral ID Status Reason Start Date Expiration Date V isits Requested Visits Authorized [id number] Closed Specialty Services Required 12/04/2024 12/05/2025 12 12 Reason for Visit * Reason Onset Date Comments Referral 12/04/2024 Encounter Details Date Type Department Care Team (Late st Contact Info) Description 12/04/2024 Telephone Adult Medicine [address] [phone] Marky Chacko MD [address] [place] [address] [phone] Social History Tobacco Use Types Packs/Day Years Used Date Smoking Tobacco: Former Cigarettes Q uit: 05/23/2012 Smokeless Tobacco: Former Quit: 02/20/2011 Alcohol Use Standard Drinks/Week Comments Yes 0 (1 standard drink = 0.6 oz pur e alcohol) Sex and Gender Information Value Date Recorded Sex Assigned at Not on file Legal Sex Male 6:43 AM EST Gender Identity Not on file Sexual Orientation Not on file documented as of this encounter Progress Notes * Patria Conde - 12/04/2024 2:22 PM EDT Referral Request: What insurance does the patient have today? BCBS Referrals cannot be processed if the insurance is not accurate. If the insurance listed above in red is NO BILLING INFORMATION FOUND FOR THIS ENCOUTNER The patients correct insurance must be obtained and registered in [facility] or their referral can not be processed. Who is calling to request this referral? [facility] If the caller is not the patient, what is their name? Edgar Ask the patient WHO referred them to this specialty: Not an initial visit; it is for follow up/continuation of care. Patients PCP is Marky Chacko FIRST and LAST NAME of SPECIALIST PATIENT is seeing: Courtney Gore What specialty is this? Orthopedic DIAGNOSIS Patient is being seen for (Not a body part or a procedure): M25.519 Have you seen this SPECIALIST for this PROBLEM/DX before? If YES, when? Yes. 08/27/24 Have you checked REVIEW or the APPT DESK to see if this referral has already been done or has visits left? yes Is this visit: Follow Up Address of Specialist: [facility] [address] [address] Phone # of Specialist: [phone] Fax #: (if applicable): [phone] Does patient have an appointment scheduled?: yes Date of appointment- (including a retro-request): 12/04/24 12 visits for the year Is this appointment related to: Not MVA, worker compensation, or surgery related documented in this encounter Plan of Treatment Upcoming Encounters Date Type Department Care Team ([facility] st Contact Info) Description 01/07/2025 10:00 AM EDT Consult Adult Medicine [address], [place] [phone] Marky Chacko MD [address] [place] [address] 01/18/2025 7:30 AM EDT Hospital Encounter [facility] Main OR [address] [place] [phone] Trung Massey, DO [address] [place], [place] 01/18/2025 7:30 AM EDT - 01/18/2025 9:00 AM EDT Surgery [facility] OR [address] [place] [phone] Trung Massey [address] [place], [place] EXCISION LESION *right forehead* WITH FROZEN 01/25/2025 8:00 AM EDT Office Visit Plastic & Reconstructive Surgery [facility] [address] [facility] [address] [place] [address] Nolbe Small PA [address] [place], [place] 02/27/2025 9:30 AM EST Office Visit Adult Medicine [address] [phone] Marky Chacko MD [address] [place] [address] 09/04/2025 8:15 AM EDT [facility] [address] [place] [phone] Andry Nguyen MD [address] [place] [address] Scheduled Procedures Name Priority Associated Diagnoses Date/Ti me EXCISION LESION EAR Basal cell carcinoma of right forehead 01/18/2025 7:30 AM EDT REPAIR LACERATION Basal cell carcinoma of right forehead 01/18/2025 7:30 AM EDT Scheduled Referrals Name Type Priority Associated Diagnoses Order Schedule Ambulatory referral to Orthopedic Surgery Outpatient Referral Routine Arthralgia of shoulder, unspecified laterality 1 Occurrences starting 12/05/2024 until 12/04/2025 documented as of this encounter Visit Diagnoses Diagnosis Basal cell carcinoma of right forehead- Primary Arthralgia of shoulder, unspecified laterality- Primary Basal cell carcinoma of right forehead documented in this encounter Care Teams Valving Machine Operator Relationship Specialty Start Date End Date Marky Chacko MD [address] [place] [address] PCP - General Internal Medicine 10/15/20 documented as of this encounter
--- OUTSIDE RECORDS SUMMARY | 2024-12-11 11:54 | XMS_ITS ---
Author Name [facility] Organization Unknown Care Team Organization Name Specialty Phone Email Start Date End [facility] 11/28/2024 [facility] Chacko Primary Care 04/19/2022 11/28/2023
== END 2024-12-11 10:24 | disposition home or self-care (01) ==
LOC: HO.US 10:23
PROVIDERS: PCP Internal Medicine; Visit Provider Nurse Practitioner Family
DX: N20.0 Calculus of kidney (principal)
CPT/HCPCS: 76775

== ENCOUNTER → 2024-12-11 10:25 | Outpatient (BNV) | payer MEDICARE, SELFPAY | PROVIDERS: PCP Internal Medicine; Visit Provider Radiology Diagnostic Radiology | DX: N20.0 Calculus of kidney (principal); N28.1 Cyst of kidney, acquired | CPT/HCPCS: 76775 ==

== ENCOUNTER 2025-03-09 09:12 | Outpatient (REF) | payer MEDICARE, BC, SELFPAY ==
--- OUTSIDE RECORDS SUMMARY | 2025-03-09 09:16 | XMS_ITS | Clinical Summary ---
Author Organization [facility] [address] [place] [address] Address [address] [place] [address] Phone Care Team Providers Care Roving Winder Name Role Phone Marky Chacko MD Primary [...] (100 mg total) by mouth. 9 Active albuterol HFA (PROVENTIL HFA;VENTOLIN HFA) 108 [...] 1 TIME EACH DAY 90 tablet 1 5 Active atorvastatin (LIPITOR) 20 mg tablet TAKE 1 TABLET BY MOUTH DAILY 90 tablet 1 5 Active amoxicillin (AMOXIL) 500 mg capsule Take 1 capsule (500 mg total) by mouth. 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 Basal cell carcinoma of right forehead 5 [...] (06/16/2023): Received a DIFFICULT AIRWAY REPORT from [facility] dated 11/15/2015. Patient was undergoing a surgical procedure and they had difficulty performing endotracheal intubation. A copy of this form will be scanned into the patient's EMR. Hyperparathyroidism (CMS/HCC V24) 02/24/2007 Overview (06/16/2023): Parathyroidectomy 2000 Mixed hyperlipidemia 02/24/2007 Umbilical hernia 02/24/2007 Overview (06/16/2023): Repair 2003 Encounters Date Type Department Care Team Description 02/27/2025 9:30 AM EST Office Visit Adult Medicine [address] [phone] Marky Chacko MD Chronic pain of right knee (Primary Dx); Mixed hyperlipidemia; Primary hypertension; Hyperparathyroidism ([facility]/HCC V24); Airway clearance impairment 02/25/2025 Telephone Adult Medicine [address] [phone] Marky Chacko MD 02/07/2025 Telephone Adult Medicine [address] [phone] Marky Chacko MD 01/09/2025 Telephone Plastic & Reconstructive Surgery [facility] [address] [place] [phone] Jessica Noonan [place] 01/07/2025 10:00 AM EDT Consult Adult Medicine [address] [phone] Marky Chacko MD Pre-op examination (Primary Dx); Chronic cough; Mixed hyperlipidemia; Primary hypertension 12/25/2024 Telephone General Surgery - [address] [place] [address] Trung Massey DO from Last 3 Months Immunizations Immunization Administration Dates Next Due Influenza Quadravalent, 0.5m [...] COMMENT: Received a DIFFICULT AIRWAY REPORT from [facility] dated 11/15/2015. Patient was undergoing a [...] Years Used Date Smoking Tobacco: Former Cigarettes 0.5 Q uit: 05/23/2012 Smokeless Tobacco: Former Quit: 02/20/2011 Tobacco Cessation:Counseling Given: Not Answered Alcohol Use Standard Drinks/Week Comments Yes 0 (1 standard drink = 0.6 oz pur e alcohol) Housing Instability Answer Date Recorde d Are you worried that in the next 2 months you may not have stable housing? No 02/27/2025 Food Access & Nutrition Answer Date Rec orded Do you have access to a vari ety of food including fruits and vegetables? Yes 02/27/2025 Health Literacy Answer Date Recorded How often do you need to hav e someone help you when you read instructions, pamphlets, or other written material from your doctor or pharmacy? Never 02/27/2025 Caregiver: How often do you need to have someone help you when you read instructions, pamphlets, or other written material from your doctor or pharmacy? Not on file 02/27/2025 Financial Risk Answer Date Recorded How hard is it for you to pa y for the very basics like food, housing, medical care, and air conditioning / heating? Not very hard 02/27/2025 Transportation Answer Date Recorded Has the lack of transportati on kept you from meetings, work, or from getting things needed for daily living? No Has the lack of transportati on kept you from medical appointments or from getting medications? No 02/27/2025 Social Isolation Answer Date Recorded How often do you feel lonely or isolated from th ose around you? Never 02/27/2025 Food Risk Answer Date Recorded Within the past 12 months we worried whether our food would run out before we got money to buy more. Never true 02/27/2025 Within the past 12 months th e food we bought just didn't last and we didn't have money to get more. Never true 02/27/2025 Dependent Care Answer Date Recorded Do you need help finding or paying for care for your loved ones. For example, children's choir director or elderly care for an older adult? No 02/27/2025 Education Answer Date Recorded Do you think completing more education or training, like finishing a GED, going to college, or learning a trade, would be helpful for you? No 02/27/2025 Employment and Income Answer Date Recor ded During the last four weeks, have you been actively looking for work? No 02/27/2025 Living Situation Answer Date Recorded What is your living situation? Unrecognized valu e 02/27/2025 Sex and Gender Information Value Date Recorded Sex Assigned at Not on file Legal Sex Male 6:43 AM EST Gender Identity Not on file Sexual Orientation Not on file Obstetrics History Last Filed Vital Signs Vital Sign Reading Time Taken Comments Blood Pressure 129/75 02/27/2025 9:32 AM EST Pulse 59 02/27/2025 9:32 AM EST Temperature 35.8 C (96.5 F) 02/27/2025 9:32 AM EST Respiratory Rate 15 02/27/2025 9:32 AM EST Oxygen Saturation 96% 02/27/2025 9:32 AM EST Inhaled Oxygen Concentration - - Weight 93.2 kg (205 lb 6.4 oz) 02/27/2025 9:32 A M EST Height 167.6 cm (5' 6 ) 02/27/2025 9:32 AM EST Body Mass Index 33.15 02/27/2025 9:32 AM EST Plan of Treatment Upcoming Encounters Date Type Department Care Team (Late st Contact Info) Description 08/29/2025 8:30 AM EDT Office Visit Adult Medicine [address] [phone] Marky Chacko MD [address] [place], [place] 09/04/2025 8:15 AM EDT Office Visit Pulmonology - [address] [place] [phone] Andry Nguyen MD [address] [place] [phone] Scheduled Procedures Name Priority Associated Diagnoses Date/Ti me EXCISION LESION EAR Basal cell carcinoma of right forehead REPAIR LACERATION Basal cell carcinoma of right forehead Health Maintenance Due Date Last Done Comments Zoster Vaccines (1 of 2) 06/23/2016 04/28/2016 Abdominal Aortic Aneurysm (AAA) Screen 03/20/2022 Medicare Annual Wellness Visit 04/27/2024 04/27/2023 COVID-19 Vaccine (7 - Moderna risk season) 2025 01/24/2025, 01/09/2024, 02/18/2023, Additional history exists Hypertension/CHF/CAD Annual BMP Blood Test 01/03/2026 01/03/2025, 04/12/2023 Falls Risk Assessment 02/27/2026 02/27/2025 , 04/27/2023, 04/27/2023 Social Influencers of Health Screening 02/27/2026 02/27/2025 DTaP,Tdap,and Td Vaccines (3 - Td or Tdap) 04/15/2027 04/15/2017, 02/24/2007 Colorectal Cancer Screening: Colonoscopy 10/02/2028 10/02/2018, 10/02/2018 Cholesterol Screening (Lipid Panel) 08/10/2029 08/10/2024, 02/06/2024, 10/18/2023, Additional history exists Hepatitis C Screening Completed 09/02/2012, 013 Pneumococcal Vaccine: 50+ Years Completed 03/06/2024 RSV Immunization Adult Patients Completed 03/14/2024 Lung Cancer Screening (Low Dose CT) Discontinued 08/21/2024, 08/16/2023, 08/16/2023, Additional history exists Influenza Vaccine Completed 01/24/2025, , 02/11/2023, Additional history exists Depression Screening Completed 02/27/2025, 04/27/19 24 HIB Vaccines Aged Out No longer eligi [...] Procedure Name Priority Date/Time Associated Diagnosis Comments ECG 12-LEAD Routine 01/08/2025 6:36 AM EDT Pre-op examination COMPREHENSIVE METABOLIC PANEL Routine 01/03/2025 7:51 AM EDT Pre-op examination EXTERNAL ULTRASOUND REPORT 12/11/2024 CT LUNG SCREENING Routine 08/21/2024 7:1 9 AM EDT Personal history of nicotine dependence Encounter for screening for malignant neoplasm of respiratory organs LIPID PANEL WITH REFLEX TO DIRECT LDL Routine 08/10/2024 7:52 AM EDT Mixed hyperlipidemia DEPRESSION SCREENING Routine 04/27/2023 FALLS RISK ASSESSMENT Routine 04/27/2023 COLONOSCOPY Routine 10/02/2018 HEPATITIS C SCREENING Routine 09/02/2012 from Last 3 Months or Most Recently Relevant to Health Maintenance Results * ECG 12 lead (01/08/2025 6:36 AM EDT) Marky Martinez MD - 01/08/2025 6:36 AM EDT EKG in my office today revealed normal sinus rhythm with ventricular rate is 61 bpm, and nonspecific ST-T changes. Formal reading by cardiology still pending. us Marky Chacko MD ECG ORDERABLES Final Result * Comprehensive metabolic panel (01/03/2025 7:51 AM EDT) Sodium 141 133 - 145 mmol/L LAB CHEMISTRY METHOD 01/03/2025 11:33 AM [facility] Potassium 4.5 3.5 - 5.5 mmol/L LAB CHEMISTRY METHOD 01/03/2025 11:33 AM [facility] Chloride 108 96 - 110 mmol/L LAB CHEMISTRY METHOD 01/03/2025 11:33 AM [facility] CO2 28 21 - 32 mmol/L LAB CHEMISTRY METHOD 01/03/2025 11:33 AM [facility] Anion Gap 5 3 - 11 LAB CHEMISTRY METHOD 01/03/2025 11:33 AM [facility] Glucose 96 70 - 100 mg/dL LAB CHEMISTRY METHOD 01/03/2025 11:33 AM [facility] BUN 20 5 - 25 mg/dL LAB CHEMISTRY METHOD 01/03/2025 11:33 AM [facility] Creatinine 0.83 0.70 - 1.30 mg/dL LAB CHEMISTRY METHOD 01/03/2025 11:33 AM [facility] eGFR 95 >=60 mL/min/1. 73m2 LAB CHEMISTRY METHOD 01/03/2025 11:33 AM [facility] Comment:Calculation based on the Chronic Kidney Disease Epidemiology Collaboration (CKD-EPI) equation refit without adjustment for race. BUN/Creatinine Ratio 24.1 LAB CHEMISTRY METHOD 01/03/2025 11:33 AM [facility] Calcium 9.1 8.5 - 10.5 mg/dL LAB CHEMISTRY METHOD 01/03/2025 11:33 AM [facility] AST (SGOT) 15 10 - 42 unit/L LAB CHEMISTRY METHOD 01/03/2025 11:33 AM [facility] ALT (SGPT) 37 10 - 60 unit/L LAB CHEMISTRY METHOD 01/03/2025 11:33 AM EDT [facility] Alkaline Phosphatase 76 42 - 121 unit/L LAB CHEMISTRY METHOD 01/03/2025 11:33 AM EDT [facility] Total Protein 6.9 6.0 - 8.0 g/dL LAB CHEMISTRY METHOD 01/03/2025 11:33 AM EDT [facility] Albumin 4.1 3.2 - 5.0 g/dL LAB CHEMISTRY METHOD 01/03/2025 11:33 AM EDT [facility] Total Bilirubin 1.4 0.0 - 1.4 mg/dL LAB CHEMISTRY METHOD 01/03/2025 11:33 AM EDT [facility] Blood Venous blood specimen / Unknown Venipuncture / Unknown 01/03/2025 7:51 AM EDT 01/03/2025 7:51 AM EDT us Marky Chacko MD LAB BLOOD ORDERABLES Final Resul t [facility] [address] [place] [address], [place] [phone] * External Ultrasound Report (12/11/2024) Anatomical Region Laterality Modality Ultrasound us Provider [facility] IMG US PROCEDURES Final Result * CT Lung Screening (08/21/2024 7:19 AM [...] Signed Date: 08/21/2024 07:51 ET Workstation ID: [id number] Transcribed By: Self Edit Transcribed Date: 08/21/2024 07:38 ET Narrative 08/21/2024 7:51 AM EDT EXAMINATION: CT CHEST WITHOUT CONTRAST LUNG CANCER SCREENING, LOW DOSE CLINICAL INFORMATION: Lung cancer screening. Former smoker. COMPARISON: Portions of previous 08/16/23 TECHNIQUE: Multidetector CT. Examination of the chest. Examination of the chest without IV contrast. Reformatting in the coronal and sagittal planes. Device: DewMobile VCT DLP: 158 mGy-cm CTDI: 4.83 Dose [...] in the coronal and sagittal planes. Device: DewMobile VCT DLP: 158 mGy-cm CTDI: 4.83 Dose [...] Signed Date: 08/21/2024 07:51 ET Workstation ID: [id number] Transcribed By: Self Edit Transcribed Date: 08/21/2024 07:38 ET us Brian Rivera MD IM CT PROCEDURES Final Result * Lipid panel with reflex to direct LDL (08/10/2024 7:52 AM EDT) Cholesterol 130 0 - 200 mg/dL LAB CHEMISTRY METHOD 08/10/2024 11:02 AM [facility] Triglycerides 81 0 - 150 mg/dL LAB CHEMISTRY METHOD 08/10/2024 11:02 AM [facility] HDL 51 >=40 mg/dL LAB CHEMISTRY METHOD 08/10/2024 11:02 AM [facility] LDL Calculated 63 0 - 100 mg/dL LAB CHEMISTRY METHOD 08/10/2024 11:02 AM [facility] VLDL Cholesterol Carlos 16.2 mg/dL LAB CHEMISTRY METHOD 08/10/2024 11:02 AM [facility] Non HDL Chol. (LDL+VLDL) 79 <145 mg/dL LAB CHEMISTRY METHOD 08/10/2024 11:02 AM [facility] Chol/HDL Ratio 2.5 0.0 - 4.4 LAB CHEMISTRY METHOD 08/10/2024 11:02 AM [facility] Blood Venous blood specimen / Unknown Venipuncture / Unknown 08/10/2024 7:52 AM EDT 08/10/2024 7:52 AM EDT Marky Chacok MD LAB BLOOD ORDERABLES Final Resul t [facility] [address] [place] [address], * Falls Risk Assessment (04/27/2023) [facility] Falls Risk Assessment ABSTRACTED Historical Provider HEALTH MAINTENANCE Final Result * Depression Screening (04/27/2023) [facility] Depression Screening ABSTRACTED Historical Provider HEALTH MAINTENANCE Final Result * Colonoscopy (10/02/2018) [facility] Colonoscopy no interpretation , abstracted Anatomical Region Laterality Modality Other Historical Provider HEALTH MAINTENANCE Final Result * Hepatitis C Screening (09/02/2012) Hepatitis C Screening ABSTRACTED Historical Provider HEALTH MAINTENANCE Final Result from Last 3 Months or Most Recently Relevant to Health Maintenance Insurance MEDICARE [facility] Care Teams Roving Winder Relationship Specialty Start Date End Date Marky Chacko MD [address] [place] [address] PCP - General Internal Medicine 10/15/20
--- OUTSIDE RECORDS SUMMARY | 2025-03-09 09:16 | XMS_ITS | Encounter Summary ---
Author Organization [facility] Address [address] [place] [address] Care Team Providers Care Rn Psych Name Role Phone Marky Chacko MD Primary Care Provider [phone] Reason for Referral * Consultation (Routine) - Authorized Specialty Diagnoses / Procedures Referred By Hernandez t Referred To Contact Orthopaedics Diagnoses Left shoulder pain Marky Chacko MD [address] [place] [phone] Phone: tel: fax: Sanchez Castaneda PA [facility] [address] [place] [address] [place] [address] Phone: tel: fax: Referral ID Status Reason Start Date Expiration Date Visits Requested Visits Authorized [id number] Authorized Specialty Services Required 03/06/2026 12 12 Reason for Visit * Reason Onset Date Comments Referral 02/25/2025 Orthopedic Insur ance Referral Encounter Details Date Type Department Care Team (Late st Contact Info) Description 02/25/2025 Telephone Adult Medicine [address] [phone] Marky Chacko MD [address] [place] [address] [phone] Social History Tobacco Use Types Packs/Day Years [...] care for your loved ones. For example, child care cook or elderly care for an older adult? [...] as of this encounter Progress Notes * Meka Tj - 02/25/2025 8:52 AM EST What insurance does the patient have today? [facility]: [email or web address]/@[email or web address]@ Referrals cannot be processed if the insurance is not accurate. If the insurance listed above is NO BILLING INFORMATION FOUND FOR THIS ENCOUNTER then the patients correct insurance must be obtainedand registered in [facility] or their referral can not be processed. Name of person calling to request this referral? Fax -[facility] Referred To Provider (Include first and last name): Sanchez Castaneda NPI (if known): [phone] Order/Specialty requested orthopedics Chief Complaint (Note: This is not a body part or a procedure): M25.512 left shoulder pain Has the patient seen provider for this problem/Dx before? Referred To Provider Address[address] [address] [place], [place] [address] Referred To Provider Does patient have an appointment scheduled?: yes If yes, what is the date of the appointment?: 02/25/25 Is this a retro request? no Number of visits requested: 12 Is this appointment related to: MVA or worker compensation? no documented in this encounter Plan of Treatment Upcoming Encounters Date Type Department Care Team (Late st Contact Info) Description 08/29/2025 8:30 AM EDT Office Visit Adult Medicine [facility] [address] [place] [address] Marky Chacko MD [address] [place], [place] 09/04/2025 8:15 AM EDT Office Visit Pulmonology - [place] [address] [place] [address] Andry Nguyen MD [address] [place] [phone] Scheduled Procedures Name Priority Associated Diagnoses Date/Ti me EXCISION LESION EAR Basal cell carcinoma of right forehead REPAIR LACERATION Basal cell carcinoma of right forehead Scheduled Referrals Name Type Priority Associated Diagnoses Order Schedule Ambulatory referral to Orthopedic Outpatient Referral Routine Left shoulder pain Expected: 03/20/2025, Expires: 03/06/2026 documented as of this encounter Visit Diagnoses Diagnosis Left shoulder pain- Primary Pain in joint, shoulder region documented in this encounter Care Teams Rn Psych Relationship Specialty Start Date End Date Marky Chacko MD [address] [place] [phone] PCP - General Internal Medicine 10/15/20 documented as of this encounter
--- OUTSIDE RECORDS SUMMARY | 2025-03-09 09:16 | XMS_ITS ---
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 Basal cell carcinoma of right forehead Cervical [...] (06/16/2023): Received a DIFFICULT AIRWAY REPORT from [facility] dated 11/15/2015. Patient was undergoing a surgical procedure and they had difficulty performing endotracheal intubation. A copy of this form will be scanned into the patient's EMR. Hyperparathyroidism ([facility] V24) 02/24/2007 Overview (06/16/2023): Parathyroidectomy 2000 Mixed hyperlipidemia 02/24/2007 Umbilical hernia 02/24/2007 Overview (06/16/2023): Repair 2002 Current Treatment and Therapy Plans No current plan information found. Past Treatment and Therapy Plans No past plan information found. Lifetime Dose Tracking * Chemical Lifetime Dose Automatic Entry Manual Entr y Radiation (DLP) 158.31 mGy-cm 158.31 mGy-cm 0 mGy-cm CTDIvol 4.83 mGy 4.83 mGy 0 mGy
[2025-03-09 10:50] LABS: Prostate Specific Antigen 0.38 ng/mL (<0.05-4.0)
== END 2025-03-09 09:13 | disposition home or self-care (01) ==
LOC: HO.LAB 09:12
PROVIDERS: PCP Internal Medicine; Visit Provider Nurse Practitioner Family
DX: N40.0 Benign prostatic hyperplasia without lower urinary tract symptoms (principal); Z12.5 Encounter for screening for malignant neoplasm of prostate
CPT/HCPCS: 36415; 84153

== ENCOUNTER 2025-03-18 08:29 | Outpatient (AMB) | payer MEDICARE, SELFPAY ==
--- NOTE | 2025-03-18 08:30 | MHC.OFFVIS ---
Intake Visit Reasons: US/UA/SET Intake Note: Patient presents today for a follow up Imaging Completed: Renal US 12/11/24 Urology Medications: Vitamin B6 Allergies to Antibiotics: No Known Allergies Blood Thinner: None Labs done 03/09/25 PSA 0.38 Loading Unit Tool Setter Required: No Accompanied by: Spouse Allergies No Known Allergies Allergy (Verified 03/18/25 09:23) Medication List - Last Reconciled 03/18/25 by ASIM Daniels-HENNY amlodipine 5 mg PO DAILY atorvastatin 20 mg PO DAILY cukxchxefexl-[id number]-[id number] 1 tab PO DAILY pregabalin (Lyrica) 225 mg PO BEDTIME pyridoxine (vitamin B6) 100 mg PO DAILY 90 days HPI Comments Details: Narayan is a pleasant 69-year-old male patient of Dr. Chacko who is accompanied by his at today's office visit. He has a past medical history of nephrolithiasis, hyperlipidemia, umbilical hernia, hypercalciuria, and hyperparathyroidism. He presents to the office today for follow-up of his nephrolithiasis as well as renal cysts. Recent renal imaging results reviewed with the patient today. Renal U/S 01/03 bilateral kidneys are normal in size, echogenicity and morphology. Simple cyst 1.7 cm in the mid pole and 0.7 cm in the lower pole of the right kidney. 5 mm and 4 mm nonobstructing calculus in the right kidney. Left kidney a vascular benign cyst 1.2 cm in the upper pole, 1.3 cm in the mid pole and 0.9 in the lower pole. 4 mm nonobstructing calculi. Lobulated nonshadowing hyperechoic a vascular lesion measuring 1.7 cm may reflect cortical scar or angiolipoma per radiology report. recommendations were made for CT renal mass protocol. CT renal mass protocol from 07/03 notes solitary right and multiple left small simple cortical cysts. No suspicious renal lesion although there are multiple subcentimeter hypodensities bilaterally. Left greater than right, that are too small to accurately characterize. 8 mm hyperdense exophytic cyst in the left kidney. No acute obstructive uropathy. Nonobstructing bilateral nephrolithiasis measuring 2-3 mm. We discussed continuation of surveillance monitoring of nephrolithiasis as well as renal cysts. Patient with a previous surgical history of nephrolithiasis at which time he underwent cystoscopy, left retrograde, left dilatation of ureteric orifice under fluoroscopy, left ureteroscopy, laser lithotripsy, stone basketing - both rigid and flexible, and left stent placement on 03/07/[address] Rebollar for distal left uterine stone. In office cystoscopy with left ureteral stent removal was performed 04/02. In discussion with the patient today reports to be doing and feeling well. He denies any bothersome urinary issues or concerns. He reports compliance with vitamin B6 as prescribed and drinking plenty of water daily. He denies urinary urgency, urinary frequency, incontinence, nocturia, hematuria, dysuria, foul smelling urine, changes to urinary stream, flank pain, fever, and or chills. He is happy with his current voiding parameters. Discussed at length potential causes of nephrolithiasis as well as renal cysts. Stone composition--80% calcium monohydrate. PSAs are as follows: PSA: 04/03 0.4, 04/04 0.4 He discusses having recently followed up with [facility] for left shoulder replacement as well as dermatology for his history of basal cell carcinoma. All questions were answered. He otherwise offers no other issues or concerns at this time. Nephrolithiasis/Urolithiasis:? Continue with renal stone medications indapamide and vitamin B6 Urine stream normal 12/29 PSA 0.5 ?They are here for further evaluation of nephrolithiasis. ?Urolithiasis was diagnosed 10/25 - Seen by PCP with right groin pain, nausea and vomiting. ?The patient previously had kidney stones whose composition w 10/25 , calcium oxalate - monohydrate 70%. ?Laboratory investigations include Base line serum evaluation. ?24 Hour urine evaluation 11/25 , Low Urine volume < 2.0 liters, Hypercalciuria (> 200mg), High oxalate > 30mg, Low citrate < 400 - low Na ? 05/29 , Good Volume > 2.00 L, Hypercalciuria (> 200mg), High Sodium (> 100mEq), High oxalate > 30mg ? 12/27 , Good Volume > 2.00 L, Low calcium < 200, High Citrate, Low urine, High uric acid - stay on indapamide. ?Prior treatment(s) include 10/25 , right, ureteroscopy ? 05/29 , medical management B6 and indapamide ? 11/26 continue medical therapy. ?Prior imaging includes a CT (computed tomography) scan of the abdomen/pelvis (stone protocol) 6 x 4 x 8 mm calculus obstructing right ureter 6 cm above UVJ. Dilated ureter and moderate hydronephrosis. 2 mm right mid renal calculus, 2 mm right lower pole calculus, 2.5 and 2 mm left lower pole calculus. 1 cm mid right simple cyst ? 11/25 , a KUB x-ray, showing no evidence of stones ? 05/29 , a KUB x-ray, showing no evidence of stones ? 12/27 , a KUB x-ray, showing no evidence of stones ? 11/27 , a renal ultrasound, showing no evidence of stones, left renal cyst complex 12/29? renal ultrasound, 5 mm stone question on right, 1.5 cm complex cyst on left continue to follow - 01/29 renal ultrasound. 6 mm stone on right, bilateral cysts including stable complex cyst on left - 01/30 renal ultrasound 5 mm stone on right, bilateral cysts, 2.0 cm complex cyst on left. [facility] Medical History History of Mohs micrographic surgery for skin cancer Renal stones Hyperlipidemia Umbilical hernia Nocturia Weak urinary stream Hypercalciuria Hyperparathyroidism Surgical History History of surgery on right wrist History of carpal tunnel surgery of left wrist History of ankle surgery History of umbilical hernia repair History of surgery Social History Patient Tobacco Use Status: Former Tobacco user Review of Systems Const Reports no additional complaints Eyes Reports no additional complaints ENT Reports no additional complaints Card Reports as per HPI Resp Reports no additional complaints GI Reports no additional complaints Reports as per HPI Musc Reports no additional complaints Neuro Reports no additional complaints Psych Reports no additional complaints Endo Reports as per HPI Nitin/Lymph Reports no additional complaints Aller/Immun Reports no additional complaints Physical Exam Const General: cooperative, healthy appearing, comfortable, no acute distress, well developed, alert and awake Nutritional Appearance: overweight Orientation/consciousness: patient oriented x3 Limitations: no limitations HEENT Head: Yes normal to inspection, Yes normocephalic and Yes atraumatic Ears: hearing grossly normal bilaterally Eyes General: appearance normal, both eyes and all related structures Neck Neck: Yes normal visual inspection and Yes trachea midline Chest Chest palpation & inspection: normal inspection of the chest Resp Effort & Inspection: normal respiratory effort and able to speak in complete sentences Cardio Rate: regular rate GI Inspection: Yes normal to inspection General: Yes no CVA tenderness Penis: normal penis and circumcised Meatus: meatus normal Scrotum: scrotum normal Testes: Testes normal Back/Spine/Pelvis Back: no CVA tenderness Skin General skin exam: no rashes or lesions noted Neuro General: patient oriented x3 Extrem General: Yes normal to inspection Psych Appearance: grossly normal and well kempt Mental Status: mental status grossly normal Speech and movement: Normal speech and movement present and Clear speech present Affect: normal affect Attitude: cooperative Thought process: Normal thought process present Thought content: Normal thought content present Insight: Fair insight present (Psych) Judgement: Fair judgement present (Psych) Results AMB Urinalysis, Automated UA Leukoctes 0 Rik/uL Last Edit by Aranza Carrasquillo [facility] on 03/18/25 08:40 UA Nitrite Negative Last Edit by [facility] on 03/18/25 08:40 UA Urobilinogen 0.2 mg/dL Last Edit by Aranza Carrasquillo [facility] on 03/18/25 08:40 UA Protein 0 mg/dL Last Edit by Aranzajesse Carrasquillo [facility] on 03/18/25 08:40 UA pH 6.0 Last Edit by Aranza Carrasquillo [facility] on 03/18/25 08:40 UA Blood 0 Calin/uL Last Edit by [facility] on 03/18/25 08:40 UA Specific [place] 1.005 Last Edit by [facility] on 03/18/25 08:40 UA Ketone Negative Last Edit by Aranzavon Carrasquillo [facility] on 03/18/25 08:40 UA Bilirubin 0 mg/dL Last Edit by Aranzavon Carrasquillo [facility] on 03/18/25 08:40 UA Glucose 0 mg/dL Last Edit by [facility] on 03/18/25 08:40 Results Reviewed Results Reviewed: Laboratory Last Values Urine pH (Auto) 6.0 03/18/25 08:39 Specific [place] (Auto) 1.005 03/18/25 08:39 Urine Protein (Auto) 0 mg/dL 03/18/25 08:39 Glucose (UA)(Auto) 0 mg/dL 03/18/25 08:39 Urine Ketones (Auto) Negative 03/18/25 08:39 Urine Blood (Auto) 0 Calin/uL 03/18/25 08:39 Urine Nitrite (Auto) Negative 03/18/25 08:39 Urine Bilirubin (Auto) 0 mg/dL 03/18/25 08:39 Urine Urobilinogen (Auto) 0.2 mg/dL 03/18/25 08:39 Leukocyte Esterase (Auto) 0 Rik/uL 03/18/25 08:39 Date of Service: 12/11/24 Procedure(s): US renal BI Findings: Right kidney is normal in size, echogenicity and morphology, 11.3 cm in length. Simple cyst 1.7 cm in the midpole, 0.7 cm lower pole cortical cyst with echogenic posterior wall probably due to increased through transmission versus likely partial wall calcification, avascular. 5 mm calculus in the midpole, 4 mm calculus in the lower pole. Left kidney is normal in size, echogenicity and morphology, 11.3 cm in length. Avascular benign cysts 1.2 cm in the upper pole, 1.3 cm in the midpole, 0.9 cm in the lower pole. 4 mm calculus in the lower pole. Lobulated nonshadowing hyperechoic avascular lesion in the midpole cortex, 1.1 x 1.3 x 1.7 cm. Impression: 1. Left renal hyperechoic mass 1.7 cm at the interpolar region, similar finding was present on prior ultrasound from 2023, the surrounding cystic component previously seen is not visualized, may reflect cortical scar or angiomyolipoma, calcification is felt to be less likely, recommend renal CT without and with IV contrast. 2. Nonobstructing bilateral nephrolithiasis. 3. Bilateral renal cysts. Assessment & Plan Assessment & Plan (1) Complex renal cyst: Code(s): N28.1 - Cyst of kidney, acquired Category: Medical Plan In office urinalysis results with the patient today; as noted above. Recent renal imaging results reviewed with the patient today; as noted above. We discussed renal cysts as well as nephrolithiasis. All questions were answered. Will obtain MRI renal mass protocol for further assessment evaluation. He currently denies any bothersome urinary issues or concerns. He reports be happy with current voiding parameters. We discussed the importance of adequate hydration relation to nephrolithiasis as well as overall health and well-being. Continue vitamin B6 as discussed and prescribed. Continue adding 1 oz of lemon juice to water daily. We did discuss further metabolic workup to include [facility] and labs. Most recent PSA results reviewed with the patient today; as noted above. Follow-up in 3-6 months with imaging; or sooner with any issues, concerns, and or questions. Orders: Orders AMB Urinalysis Automated Today N13.8 - Other obstructive and reflux uropathy, N40.1 - Benign prostatic hyperplasia with lower urinary tract symptoms MR abdomen wo/w con Today N28.1 - Cyst of kidney, acquired Patient Instructions: The patient had an opportunity to ask questions regarding the treatment plan. All questions were answered. Physical exam, labs, and imaging were discussed and reviewed in detail. As well as risks, benefits, and discussion of treatment choices. No major barriers to understanding were identified. The patient expressed understanding and agreement with the above treatment plan. The patient was made aware they should contact our office by phone for worsening of their current condition, the appearance of new symptoms, or with any questions or concerns. Compliance is encouraged with any medications and follow up testing that is ordered. It is a privilege to be allowed the opportunity to participate in? your urological care.? Again, if you have any questions or concerns If you have any questions or concerns please do not hesitate to contact me. The office is [phone]. This note is constructed using voice recognition software. While every effort has been made to ensure accuracy precision farming specialist errors may have been included. Yours sincerely, DARLENE Daniels Coding Level of Care Code Est Pt Level 3 (23991) Complex visit Add On G2211 Diagnoses Complex renal cyst N28.1
== END 2025-03-18 09:09 | disposition home or self-care (01) ==
LOC: HO.HUSH 08:30
PROVIDERS: PCP Internal Medicine; Visit Provider Nurse Practitioner Family
DX: N40.1 Benign prostatic hyperplasia with lower urinary tract symptoms (principal); N13.8 Other obstructive and reflux uropathy; N28.1 Cyst of kidney, acquired
CPT/HCPCS: 99213; G2211

== ENCOUNTER → 2025-03-18 08:29 | Outpatient (BNVA) | payer MEDICARE, SELFPAY | PROVIDERS: PCP Internal Medicine; Visit Provider Nurse Practitioner Family | DX: N28.1 Cyst of kidney, acquired (principal); N40.1 Benign prostatic hyperplasia with lower urinary tract symptoms; N13.8 Other obstructive and reflux uropathy | CPT/HCPCS: 81003; 99212 ==